=== PATIENT | male | born 1950 | race Caucasian/White ===

== ENCOUNTER 2022-11-24 07:00 | Outpatient (OUT) | payer MEDICARE, SELFPAY ==
[2022-11-24 10:39] LABS: Basophils Absolute Auto 0.1 10^3/uL (0.0-0.1); Basophils Percent Auto 1.1 % (0.2-2.0); Eosinophils Absolute Auto 0.3 10^3/uL (0.0-0.7); Eosinophils Percent Auto 4.4 % (0.9-7.0); Hematocrit 47.8 % (42.0-54.0); Hemoglobin 15.8 g/dL (14.0-18.0); Immature Granulocytes Abs Auto 0.02 10^3/uL (0.00-0.03); Immature Granulocytes Pct Auto 0.4 % (0.0-0.5); Lymphocytes Absolute Auto 2.1 10^3/uL (1.2-3.8); Lymphocytes Percent Auto 36.1 % (20.5-60.0); Mean Corpuscular HGB Conc 33.1 g/dL (29.9-35.2); Mean Corpuscular Volume 87.7 fL (80.0-94.0); Mean Platelet Volume 10.3 fL (9.5-13.5); Monocytes Absolute Auto 0.5 10^3/uL (0.3-0.8); Monocytes Percent Auto 8.8 % (1.7-12.0); Neutrophils Absolute Auto 2.8 10^3/uL (1.4-6.5); Neutrophils Percent Auto 49.2 % (43.0-75.0); Platelet Count 232 10^3/uL (150-450); Red Blood Count 5.45 10^6/uL (4.70-6.10); White Blood Count 5.7 10^3/uL (4.0-11.0)
[2022-11-24 10:50] LABS: Alanine Aminotransferase 28 U/L (16-63); Albumin Globulin Ratio 0.8; Albumin Level 3.6 g/dL (3.4-5.0); Alkaline Phosphatase 70 U/L (46-116); Aspartate Amino Transferase 18 U/L (15-37); BUN Creatinine Ratio 27.4; Bilirubin Total 0.5 mg/dL (0.2-1.0); Calcium 8.9 mg/dL (8.5-10.1); Carbon Dioxide 27.3 mmol/L (21.0-32.0); Chloride 106 mmol/L (98-107); Chol HDL Ratio 3.6; Cholesterol 213 mg/dL (<=200); Estimated GFR (African America >60 (>=60); Estimated GFR (Non-African Ame >60 (>=60); Globulin 4.3 g/dL; Glucose 110 mg/dL (74-106); HDL Cholesterol 59 mg/dL (40-60); Potassium 4.3 mmol/L (3.5-5.1); Sodium 141 mmol/L (136-145); Total Protein 7.9 g/dL (6.4-8.2); Triglycerides 103 mg/dL (<=150); VLDL CHOLESTEROL 20.6 mg/dL
[2022-11-24 11:07] LABS: Prostate Specific Antigen Dx 3.04 ng/mL (<=4.00)
== END 2022-11-24 07:01 | disposition home or self-care (01) ==
LOC: LAB 11-29 13:02
PROVIDERS: PCP Internal Medicine; Visit Provider Internal Medicine
DX: E88.09 Other disorders of plasma-protein metabolism, not elsewhere classified (principal); Z79.899 Other long term (current) drug therapy; E78.00 Pure hypercholesterolemia, unspecified; R97.20 Elevated prostate specific antigen [PSA]
CPT/HCPCS: 36415; 80053; 80061; 84153; 85025

== ENCOUNTER 2023-02-26 13:15 | Outpatient (OUT) | payer MEDICARE, SELFPAY ==
[2023-02-26 14:39] LABS: Prostate Specific Antigen Dx 3.65 ng/mL (<=4.00)
== END 2023-02-26 13:16 | disposition home or self-care (01) ==
LOC: LAB 13:15
PROVIDERS: PCP Internal Medicine; Visit Provider Internal Medicine
DX: R97.20 Elevated prostate specific antigen [PSA] (principal)
CPT/HCPCS: 36415; 84153

== ENCOUNTER 2023-03-06 11:17 | Outpatient (OUT) | payer MEDICARE, SELFPAY ==
[2023-03-06 13:45] LABS: Prostate Specific Antigen Dx 2.31 ng/mL (<=4.00)
== END 2023-03-06 11:18 | disposition home or self-care (01) ==
LOC: LAB 11:19
PROVIDERS: PCP Internal Medicine; Visit Provider Nurse Practitioner Family
DX: R97.20 Elevated prostate specific antigen [PSA] (principal)
CPT/HCPCS: 36415; 84153

== ENCOUNTER 2023-07-16 09:35 | Outpatient (OUT) | payer MEDICARE, SELFPAY ==
--- OUTSIDE RECORDS SUMMARY | 2023-07-16 09:39 | XMS_ITS | CCD ---
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 Name Role Phone Paul Frias MD Primary Care Provider Lewis Kruse Primary Care Provider U COURTNEY Cordova Attending Unavailable COURTNEY MORALES Admitting Unavailable NUPUR, DR HAN Dang Consulting Unavailable COURTNEY MORALES Consulting Unavailable WHIT ., DR WILEY Attending Unavailable HOY ., DR WILEY Consulting Unavailable HOY ., DR WILEY Admitting Unavailable HOY ., DR WILEY Attending Unavailable HOY ., DR WILEY Consulting Unavailable YAHIRY ., DR WILEY Admitting Unavailable COURTNEY MORALES Attending Unavailable COURTNEY MORALES Admitting Unavailable Unavailable Unavailable Unavailable Medications Current Medications Medication Drug Class(es) Dates Sig (Normalized) Sig (Original) acetaminophen 325 mg / oxyCODONE hydrochloride 5 mg oral tablet (1 source) Opioid Agonist Start: 10-12-2018 take 1 tablet by mouth every six hours Oxycodone-Acetami nophen Active 1 TAB Oral Q6H 10 3 October 12, 2018 9:45pm Albuterol (1 source) beta2-Adrenergic Agonist Start: 10-12-2018 Albuterol Sulfate Active October 12, 2018 8:58pm 120 actuat budesonide 0.16 mg/actuat / formoterol fumarate 0.0045 mg/actuat metered dose inhaler (1 source) Corticosteroid, beta2-Adrenergic Agonist Start: 10-12-2018 Budesonide-Formot mike Active October 12, 2018 8:58pm predniSONE 50 mg oral tablet (1 source) Start: 10-12-2018 take 50 mg by mouth once daily at mealtime Prednisone Active 50 MG Oral Daily 5 5 October 12, 2018 9:46pm administer with food or milk Problems Active Problems Problem Classification Problem Date Documented Date Episodic/Chronic Hyperplasia of prostate (1 source) Benign prostatic hypertrophy without outflow obstruction; Translations: [Benign prostatic hyperplasia without lower urinary tract symptoms] Onset: 03-18-2018 03-18-2018 Chronic Osteoarthritis (1 source) Generalized osteoarthritis of the hand; Translations: [Polyosteoarthritis, unspecified] Onset: 04-01-2008 04-01-2008 Chronic Other connective tissue disease (2 sources) Plantar fascial fibromatosis; Translations: [Plantar fascial fibromatosis] Onset: 10-30-2006 Episodic Past or Other Problems Problem Classification Problem Date Documented Date Episodic/Chronic Calculus of urinary tract (1 source) Kidney stone; Translations: [Calculus of kidney] Onset: 03-18-2018 03-18-2018 Episodic Immunizations and screening for infectious disease (4 sources) Encounter for immunization; Translations: [ENCOUNTER FOR IMMUNIZATION] Onset: 09-20-2021 Episodic Other connective tissue disease (4 sources) Achilles tendinitis, left leg; Translations: [ACHILLES TENDINITIS LEFT LEG] Onset: 05-16-2022 Episodic Other male genital disorders (1 source) Adult hydrocele; Translations: [Hydrocele, unspecified] Onset: 03-18-2018 03-18-2018 Episodic Other nervous system disorders (1 source) Other abnormalities of gait and mobility; Translations: [OTHER ABNORMALITIES GAIT AND MOBILITY] Onset: 05-23-2022 Episodic Other nervous system disorders (1 source) Unspecified abnormalities of gait and mobility; Translations: [UNS ABNORMALITIES GAIT AND MOBILITY] Onset: 05-23-2022 Episodic Other non-traumatic joint disorders (5 sources) Pain in left ankle and joints of left foot; Translations: [PAIN IN LEFT ANKLE] Onset: 03-14-2022 Episodic Sprains and strains (2 sources) Thoracic back sprain; Translations: [Strain of left Achilles tendon, subsequent encounter] Onset: 05-23-2022 Episodic Results Test Name Value Interpretation Reference Range Facil ity Complete Blood Count with Au to Diffon 09-26-2021 Basophils (Bld) [#/Vol] 0.07 10*3/uL Normal 0.00-0.20 [facility] Supply Person Comment on above: Performed By: #### C MP, LIPD, CBCAD #### [facility] [address] [place], [place] [id number] Basophils/100 WBC (Bld) 1.2 % Normal [facility] Specialist Comment on above: Performed By: #### C MP LIPD, CBCAD #### [facility] [address] [place], [place] [id number] Eosinophils (Bld) [#/Vol] 0.24 10*3/uL Normal 0.02-0.50 [facility]ist Comment on above: Performed By: #### C MP LIPD, CBCAD #### [facility] [address] [place], [place] [id number] Eosinophils/100 WBC (Bld) 4.0 % Normal [facility] Specialist Comment on above: Performed By: #### C MP LIPD, CBCAD #### [facility] [address] [place], [place] [id number] Erythrocyte distribution width (RBC) [Ratio] 13.9 % Normal 11.0-15.0 [facility] Specialist Comment on above: Performed By: #### C MP LIPD, CBCAD #### [facility] [address] [place], [place] [id number] Hematocrit (Bld) [Volume fraction] 46.0 % Normal 38.5-50.0 [facility] Specialist Comment on above: Performed By: #### C MP LIPD, CBCAD #### [facility] [address] [place], [place] [id number] Hemoglobin (Bld) [Mass/Vol] 15.1 g/dL Normal 13.0-17.1 [facility] Supply Person Comment on above: Performed By: #### C MP, LIPD, CBCAD #### [facility] [address] [place], [place] [id number] Lymphocytes (Bld) [#/Vol] 2.1 10*3/uL Normal 0.9-3.9 [facility]ist Comment on above: Performed By: #### C MP, LIPD, CBCAD #### [facility] [address] [place], [place] [id number] Lymphocytes/100 WBC (Bld) 34.8 % Normal [facility] Specialist Comment on above: Performed By: #### C MP, LIPD, CBCAD #### [facility] [address] [place], [place] [id number] MCH (RBC) [Entitic mass] 30.1 pg Normal 27.0-33.0 [facility] Specialist Comment on above: Performed By: #### C MP, LIPD, CBCAD #### [facility] [address] [place], [place] [id number] MCHC (RBC) [Mass/Vol] 32.8 g/dL Normal 32.0-36.0 [facility] Special[facility] Comment on above: Performed By: #### C MP, LIPD, CBCAD #### [facility] [address] [place], [place] [id number] MCV (RBC) [Entitic vol] 92 fL Normal 80-100 [facility] Comment on above: Performed By: #### C MP, LIPD, CBCAD #### [facility] [address] [place], [place] [id number] Monocytes (Bld) [#/Vol] 0.6 10*3/uL Normal 0.2-0.9 [facility] Comment on above: Performed By: #### C MP, LIPD, CBCAD #### [facility] [address] [place], [place] [id number] Monocytes/100 WBC (Bld) 9.4 % Normal [facility] Special[facility] Comment on above: Performed By: #### C MP, LIPD, CBCAD #### [facility] [address] [place], [place] [id number] Neutrophils (Bld) [#/Vol] 3.0 10*3/uL Normal 1.5-7.8 [facility] Comment on above: Performed By: #### C MP, LIPD, CBCAD #### [facility] [address] [place], [place] [id number] Neutrophils/100 WBC (Bld) 50.3 % Normal [facility] Specialist Comment on above: Performed By: #### C MP, LIPD, CBCAD #### [facility] [address] [place], [place] [id number] Platelet mean volume (Bld) [Entitic vol] 11.00 fL Normal 7.50-12.50 [employer] [place] Supply Person Comment on above: Performed By: #### C MP, LIPD, CBCAD #### [facility] [address] [place], [place] [id number] Platelets (Bld) [#/Vol] 246 10*3/uL Normal 140-400 [facility] Supply Person Comment on above: Performed By: #### C MP, LIPD, CBCAD #### [facility] [address] [place], [place] [id number] RBC (Bld) [#/Vol] 5.02 10*6/uL Normal 4.20-5.80 [facility] Comment on above: Performed By: #### C MP, LIPD, CBCAD #### [facility] [address] [place], [place] [id number] RDW-SD 47.2 fL Normal 37.0-50.0 [facility] Specialist Comment on above: Performed By: #### C MP, LIPD, CBCAD #### [facility] [address] [place], [place] [id number] WBC (Bld) [#/Vol] 6.0 10*3/uL Normal 3.8-11.0 [facility] Supply Person Comment on above: Performed By: #### C MP, LIPD, CBCAD #### [facility] [address] [place], [place] [id number] Comprehensive Metabolic Pane [facility] 09-26-2021 Albumin [Mass/Vol] 4.3 g/dL Normal 3.6-5.1 [facility] Supply Person Comment on above: Performed By: #### C MP, LIPD, CBCAD #### [facility] [address] [place], [place] [id number] Albumin/Globulin [Mass ratio] 1.4 {ratio} Normal 1.0-2.5 [facility] Specialist Comment on above: Performed By: #### C MP, LIPD, CBCAD #### [facility] [address] [place], [place] [id number] ALP [Catalytic activity/Vol] 69 U/L Normal 40-129 [facility] Supply Person Comment on above: Performed By: #### C MP, LIPD, CBCAD #### [facility] [address] [place], [place] [id number] ALT [Catalytic activity/Vol] 26 U/L Normal 9-46 [facility] Comment on above: Result Comment: 04/06 Female reference range changed. Performed By: #### C MP, LIPD, CBCAD #### [facility] [address] [place], [place] [id number] Anion gap [Moles/Vol] 16 mmol/L Normal 12-20 [facility] Specialist Comment on above: Result Comment: Effe ctive 05/12/2019 reference range changed. Performed By: #### C MP, LIPD, CBCAD #### [facility] [address] [place], [place] [id number] AST [Catalytic activity/Vol] 24 U/L Normal 10-40 [facility] Comment on above: Performed By: #### C MP, LIPD, CBCAD #### [facility] [address] [place], [place] [id number] Bilirubin [Mass/Vol] 0.32 mg/dL Normal 0.30-1.20 [facility] Comment on above: Performed By: #### C MP, LIPD, CBCAD #### [facility] [address] [place], [place] [id number] BUN/CREA 31 Ratio High 6-22 [facility] Comment on above: Performed By: #### C MP, LIPD, CBCAD #### [facility] [address] [place], [place] [id number] Calcium [Mass/Vol] 9.6 mg/dL Normal 8.6-10.2 [facility] Comment on above: Performed By: #### C MP, LIPD, CBCAD #### [facility] [address] [facility] [place] [place] [id number] Chloride [Moles/Vol] 105 mmol/L Normal 98-107 [facility] Specialist Comment on above: Performed By: #### C MP, LIPD, CBCAD #### [facility] [address] [facility] [place] [place] [id number] CO2 [Moles/Vol] 24 mmol/L Normal 20-31 [facility] Comment on above: Performed By: #### C MP, LIPD, CBCAD #### [facility] [address] [place], [place] [id number] Creatinine [Mass/Vol] 0.9 mg/dL Normal 0.7-1.4 [facility] Specialist Comment on above: Performed By: #### C DESTINY AND, CBCAD #### [facility] [address] [place], [place] [id number] eGFRAA 105 mL/min/1.73m2 Normal >60 [facility] Specialist Comment on above: Performed By: #### C NATALIYA LIPD, CBCAD #### [facility] [address] [place], [place] [id number] eGFRNAA 87 mL/min/1.73m2 Normal >60 [facility] Specialist Comment on above: Performed By: #### C CHANA AN, CBCAD #### [facility] [address] [place], [place] [id number] Globulin (S) [Mass/Vol] 3.1 g/dL Normal 1.9-3.7 [facility] Specialist Comment on above: Performed By: #### C NATALIYA LIPD, CBCAD #### [facility] [address] [place], [place] [id number] Glucose [Mass/Vol] 113 mg/dL High 65-99 [facility] Supply Person Comment on above: Result Comment: For FASTING Glucose --- ADA reference ranges: Normal 65-99 mg/dl Prediabetes 100-125 Diabetes >/= 126 Performed By: #### C NATALIYA LIPD, CBCAD #### [facility] [address] [place], [place] [id number] Potassium [Moles/Vol] 4.4 mmol/L Normal 3.5-5.5 [facility] Supply Person Comment on above: Performed By: #### C NATALIYA LIPD, CBCAD #### [facility] [address] [place], [place] [id number] Protein [Mass/Vol] 7.4 g/dL Normal 6.1-8.1 [facility] Supply Person Comment on above: Performed By: #### C NATALIYA, LIPD, CBCAD #### [facility] [address] [place], [place] [id number] Sodium [Moles/Vol] 141 mmol/L Normal 135-146 [facility] Comment on above: Performed By: #### C MP, LIPD, CBCAD #### [facility] [address] [place], [place] [id number] Urea nitrogen [Mass/Vol] 27 mg/dL High 7-25 [facility] Specialist Comment on above: Performed By: #### C MP, LIPD, CBCAD #### [facility] [address] [place], [place] [id number] Lipid Panelon 09-26-2021 Cholesterol [Mass/Vol] 212 mg/dL High 125-200 [facility] Specialist Comment on above: Result Comment: Low risk < 200mg/dL Borderline risk 201-239 mg/dl High risk > or equal to 240 Performed By: #### C NATALIYA, LIPD, CBCAD #### [facility] [address] [place], [place] [id number] Cholesterol in HDL [Mass/Vol] 54 mg/dL Normal >40 [facility] Specialist Comment on above: Result Comment: High Cardiovascular Risk HDL <40 mg/dL Low Cardiovascular Risk HDL > or equal to 60 mg/dl Performed By: #### C MP, LIPD, CBCAD #### [facility] [address] [place], [place] [id number] Cholesterol in LDL [Mass/Vol] 128 mg/dL Normal [facility] Comment on above: Result Comment: LDL ATP III CLASSIFICATION LDL less than 100 mg/dl Optimal LDL 100-129 mg/dl Near or above optimal LDL 130-159 Borderline high LDL 160-189 High LDL greater than 189 mg/dl Very High Performed By: #### C MP, LIPD, CBCAD #### [facility] [address] [place], [place] [id number] Cholesterol in VLDL [Mass/Vol] 30 mg/dL Normal [facility] Comment on above: Performed By: #### C MP, LIPD, CBCAD #### [facility] [address] [place], [place] [id number] Cholesterol.total/C holesterol in HDL [Mass ratio] 4 {ratio} Normal [facility] Specialist Comment on above: Performed By: #### C MP, LIPD, CBCAD #### [facility] [address] [place], [place] [id number] Triglyceride [Mass/Vol] 150 mg/dL Normal 30-150 [facility] Supply Person Comment on above: Result Comment: TRIG ATPIII CLASSIFICATIONS TRIG less than 150 mg/dl Normal TRIG 150-199 mg/dl Borderline High TRIG 200-500 mg/dl High TRIG greather than 500 mg/dl Very High Performed By: #### C MP, LIPD, CBCAD #### [facility] [address] [place], [place] [id number] Prostatic Specific Antigen, Totalon 09-26-2021 TPSA 1.920 ng/mL Normal <4.000 [facility] Supply Person Comment on above: Result Comment: PSA Test Method: ECLIA/Kwan e 601 Performed By: #### P SA #### [facility] [address] [place], [place] [id number] Encounters Encounter Date Encounter Type Care Provider Facility Start: 03-12-2023 ambulatory Facility:[facility] Start: 05-16-2022 End: 07-04-2022 ambulatory COURTNEY MORALES Facility: Start: 03-14-2022 End: 03-15-2022 ambulatory COURTNEY MORALES Facility:[facility] Start: 02-14-2022 End: 02-15-[address] INEZ SHERMAN . Facility:[facility] Start: 09-20-2021 End: 09-21-[address] INEZ SHERMAN . Facility: Start: 11-09-2006 ambulatory Cast [facility] Work Phone: Orthopaedics Start: 11-09-2006 End: 11-09-2006 Patient encounter procedure [facility] Work Phone: [facility] Plan of Treatment Date Care Activity Detail Author Start: 01-05-2021 Influenza vaccination INFLUENZA (Sea son Ended) [facility] Start: 2017 ADVANCE DIRECTIVE DISCUSSION ADVANCE DIRECTIVE DISCUSSION [facility] Start: 2017 PNEUMOVAX AGE 65 AND OVER WITH 5YR LOOKBACK (#1) PNEUMOVAX AGE 65 AND OVER WITH 5YR LOOKBACK (#1) [facility] Start: 08-31-2007 PROSTATE CANCER SCRE ENING DISCUSSION PROSTATE CANCER SCREENING DISCUSSION [facility] Start: 2002 Screening for malign ant neoplasm of colon [facility] Start: 2002 SHINGRIX VACCINE (1 of 2) RICE GRIX VACCINE (1 of 2) [facility] Start: 1997 [facility] Start: 08-31-1987 LIPID SCREEN LIPID SCREEN [facility] Start: 08-31-1971 Urine microalbumin profile DTAP,TDAP ,TD (1 - Tdap) [facility] Start: 1970 HEPATITIS C SCREENING HEPATITIS C SC REENING [facility] Start: 1964 Adult depression scr eening assessment DEPRESSION SCREENING [facility] Start: 1964 COVID-19 VACCINE (1) COVID-19 VACCIN E (1) [facility] Payers Date Payer Category Payer Unknown [employer] PPO [id number] 2006-2008 PPO [id number] 1959 Medicare [id number] 1959 Private Health Insurance [facility] [id number] [id number] 1957 Self-pay [id number] 1950 Unknown [id number] 1950 Unknown [id number] Unknown Self Pay [id number] Unknown [id number] Unknown [id number] Social History Date Type Detail [facility] Start: 1950 Sex Assigned At Male [facility] Start: 1950 Sex Assigned At Not on file [facility] Goals Date Patient Goal Desired Activity /State Clinical Note 03-15-2022 Note Date & Type Note Facility 03-15-2022 Note PROCEDURE: XR ANKLE LT MIN 3 V COMPARISON: 07/01/2019 foot x-ray HISTORY: Pain of left ankle joint FINDINGS: BONES:No acute fracture or dislocation. Mild degenerative changes. Moderate enthesopathic spurring plantar calcaneus SOFT TISSUES:Negative. No visible soft tissue swelling. EFFUSION:None visible. OTHER: Calcification of the Achilles tendon IMPRESSION: Achilles calcific tendinosis Degenerative changes Electronically authenticated by: HAN ESPITIA Date: 2022-03-15 08:54 [facility] History of Present illness Narrative 11-09-2006 11/09/2006 5:39 PM EDT Note Date & Type Note Facility 11-09-2006 History of Presen t illness Narrative PT ASSESSMENT - CASTING ROOM Naomi presents for cast removal and Application of Brace. Applied night splint and pneumatic aircast walker to left foot Patient has been instructed in Care and proper application of brace.. Darian Jai Cast Beeper: [id number] documented in this encounter [facility] Evaluation note Note Date & Type Note Facility Evaluation note Diagnosis Plantar fascial fibromatosis- Primary documented in this encounter [facility] Assessments No Assessments Information Available Summary Purpose Family History No Family History Records FoundNo Family History Records FoundNo Family History Records Found Advance Directives No Advanced Directives Records FoundNo Advanced Directives Records FoundNo Advanced Directives Records Found Additional Source Comments Source Comments (unrecognize d section and content) In the event this informatio n is protected by the Federal Confidentiality of Alcohol and Drug Abuse Patient Records regulations: The Federal rules restrict any use of the information to criminally investigate or prosecute any alcohol or drug abuse patient.[facility] (unrecognized sect ion and content) No Status Records FoundNo Status Records FoundNo Status Records Found INFORMATION SOURCE (unrecogn ized section and content) DATE CREATED AUTHOR 09/27/2021 [facility] dical Specialist DATE CREATED AUTHOR AUTHOR'S ORGANIZ ATION 09/06/2022 [facility] DATE CREATED AUTHOR AUTHOR'S ORGANIZ ATION 03/13/2023 [facility] FOR RECORDS PERTAINING TO PATIENTS WHO ARE OR HAVE BEEN ENROLLED IN A CHEMICAL DEPENDENCY/SUBSTANCEABUSE PROGRAM, SOME INFORMATION MAY BE OMITTED. This clinical summary was aggregated from multiple sources. Caution should be exercised in using it in the provision of clinical care. This summary normalizes information from multiple sources, and as a consequence, information in this document may materially change the coding, format and clinical context of patient data. In addition, data may be omitted in some cases. CLINICAL DECISIONS SHOULD BE BASED ON THE PRIMARY CLINICAL RECORDS. [employer] provides no warranty or guarantee of the accuracy or completeness of information in this document.
--- OUTSIDE RECORDS SUMMARY | 2023-07-16 09:39 | XMS_ITS | CCD ---
Author Name Unknown Address [address] [place] [address] Organization [facility] Care Team Providers Care Business Consult Name Role Phone Paul Frias MD Primary Care Provider [phone] Lewis Kruse Primary Care Provider U COURTNEY [...] Basophils (Bld) [#/Vol] 0.07 10*3/uL Normal 0.00-0.20 [facility] [employer] Operator Comment on above: Performed By: #### C MP, LIPD, CBCAD #### [facility] [address] [place], [place] [id number] Basophils/100 WBC (Bld) 1.2 % Normal [facility] Comment on above: Performed By: #### C MP LIPD, CBCAD #### [facility] [address] [place], [place] [id number] Eosinophils (Bld) [#/Vol] 0.24 10*3/uL Normal 0.02-0.50 [facility] Comment on above: Performed By: #### C MP LIPD, CBCAD #### [facility] [address] [place], [place] [id number] Eosinophils/100 WBC (Bld) 4.0 % Normal [facility] Comment on above: Performed By: #### C MP LIPD, CBCAD #### [facility] [address] [place], [place] [id number] Erythrocyte distribution width (RBC) [Ratio] 13.9 % Normal 11.0-15.0 [facility] Comment on above: Performed By: #### C MP LIPD, CBCAD #### [facility] [address] [place], [place] [id number] Hematocrit (Bld) [Volume fraction] 46.0 % Normal 38.5-50.0 [facility] Comment on above: Performed By: #### C MP LIPD, CBCAD #### [facility] [address] [place], [place] [id number] Hemoglobin (Bld) [Mass/Vol] 15.1 g/dL Normal 13.0-17.1 [facility] [employer] Operator Comment on above: Performed By: #### C MP, LIPD, CBCAD #### [facility] [address] [place], [place] [id number] Lymphocytes (Bld) [#/Vol] 2.1 10*3/uL Normal 0.9-3.9 [facility] Comment on above: Performed By: #### C MP, LIPD, CBCAD #### [facility] [address] [place], [place] [id number] Lymphocytes/100 WBC (Bld) 34.8 % Normal [facility] Comment on above: Performed By: #### C MP, LIPD, CBCAD #### [facility] [address] [place], [place] [id number] MCH (RBC) [Entitic mass] 30.1 pg Normal 27.0-33.0 [facility] Comment on above: Performed By: #### C MP, LIPD, CBCAD #### [facility] [address] [place], [place] [id number] MCHC (RBC) [Mass/Vol] 32.8 g/dL Normal 32.0-36.0 [facility] Comment on above: Performed By: #### C MP, LIPD, CBCAD #### [facility] [address] [place], [place] [id number] MCV (RBC) [Entitic vol] 92 fL Normal 80-100 [facility] Comment on above: Performed By: #### C MP, LIPD, CBCAD #### [facility] [address] [place], [place] [id number] Monocytes (Bld) [#/Vol] 0.6 10*3/uL Normal 0.2-0.9 [facility] Comment on above: Performed By: #### C MP, LIPD, CBCAD #### [facility] [address] [place], [place] [id number] Monocytes/100 WBC (Bld) 9.4 % Normal [facility] Comment on above: Performed By: #### C MP, LIPD, CBCAD #### [facility] [address] [place], [place] [id number] Neutrophils (Bld) [#/Vol] 3.0 10*3/uL Normal 1.5-7.8 [facility] Comment on above: Performed By: #### C MP, LIPD, CBCAD #### [facility] [address] [place], [place] [id number] Neutrophils/100 WBC (Bld) 50.3 % Normal [facility] Comment on above: Performed By: #### C MP, LIPD, CBCAD #### [facility] [address] [place], [place] [id number] Platelet mean volume (Bld) [Entitic vol] 11.00 fL Normal 7.50-12.50 [facility] [employer] Operator Comment on above: Performed By: #### C MP, LIPD, CBCAD #### [facility] [address] [place], [place] [id number] Platelets (Bld) [#/Vol] 246 10*3/uL Normal 140-400 [facility] [employer] Operator Comment on above: Performed By: #### C MP, LIPD, CBCAD #### [facility] [address] [place], [place] [id number] RBC (Bld) [#/Vol] 5.02 10*6/uL Normal 4.20-5.80 [facility] Comment on above: Performed By: #### C MP, LIPD, CBCAD #### [facility] [address] [place], [place] [id number] RDW-SD 47.2 fL Normal 37.0-50.0 [facility] Comment on above: Performed By: #### C MP, LIPD, CBCAD #### [facility] [address] [place], [place] [id number] WBC (Bld) [#/Vol] 6.0 10*3/uL Normal 3.8-11.0 [facility] [employer] Operator Comment on above: Performed By: #### C MP, LIPD, CBCAD #### [facility] [address] [place], [place] [id number] Comprehensive Metabolic Pane [facility] 09-26-2021 Albumin [Mass/Vol] 4.3 g/dL Normal 3.6-5.1 [facility] [employer] Operator Comment on above: Performed By: #### C MP, LIPD, CBCAD #### [facility] [address] [place], [place] [id number] Albumin/Globulin [Mass ratio] 1.4 {ratio} Normal 1.0-2.5 [facility] Comment on above: Performed By: #### C MP, LIPD, CBCAD #### [facility] [address] [place], [place] [id number] ALP [Catalytic activity/Vol] 69 U/L Normal 40-129 [facility] [employer] Operator Comment on above: Performed By: #### C MP, LIPD, CBCAD #### [facility] [address] [place], [place] [id number] ALT [Catalytic activity/Vol] 26 U/L Normal 9-46 [facility] Comment on above: Result Comment: 04/06 Female reference range changed. Performed By: #### C MP, LIPD, CBCAD #### [facility] [address] [place], [place] [id number] Anion gap [Moles/Vol] 16 mmol/L Normal 12-20 [facility] Comment on above: Result Comment: Effe ctive 05/12/2019 reference range changed. Performed By: #### C MP, LIPD, CBCAD #### [facility] [address] [place], [place] [id number] AST [Catalytic activity/Vol] 24 U/L Normal 10-40 [facility] Comment on above: Performed By: #### C MP, LIPD, CBCAD #### [facility] [address] [place], [place] [id number] Bilirubin [Mass/Vol] 0.32 mg/dL Normal 0.30-1.20 [facility] Comment on above: Performed By: #### C MP, LIPD, CBCAD #### [facility] [address] [place], [place] [id number] BUN/CREA 31 Ratio High 6-22 [facility] Comment on above: Performed By: #### C MP, LIPD, CBCAD #### [facility] [address] [place], [place] [id number] Calcium [Mass/Vol] 9.6 mg/dL Normal 8.6-10.2 [facility] Comment on above: Performed By: #### C MP, LIPD, CBCAD #### [facility] [address] [facility] [place] [id number] Chloride [Moles/Vol] 105 mmol/L Normal 98-107 [facility] Comment on above: Performed By: #### C MP, LIPD, CBCAD #### [facility] [address] [facility] [place] [id number] CO2 [Moles/Vol] 24 mmol/L Normal 20-31 [facility] Comment on above: Performed By: #### C MP, LIPD, CBCAD #### [facility] [address] [place], [place] [id number] Creatinine [Mass/Vol] 0.9 mg/dL Normal 0.7-1.4 [facility] Comment on above: Performed By: #### C DESTINY AND, CBCAD #### [facility] [address] [place], [place] [id number] eGFRAA 105 mL/min/1.73m2 Normal >60 [facility] Specialist Comment on above: Performed By: #### C NATALIYA LIPD, CBCAD #### [facility] [address] [place], [place] [id number] eGFRNAA 87 mL/min/1.73m2 Normal >60 [facility] Comment on above: Performed By: #### C CHANA AN, CBCAD #### [facility] [address] [place], [place] [id number] Globulin (S) [Mass/Vol] 3.1 g/dL Normal 1.9-3.7 [facility] Comment on above: Performed By: #### C NATALIYA LIPD, CBCAD #### [facility] [address] [place], [place] [id number] Glucose [Mass/Vol] 113 mg/dL High 65-99 [facility] [employer] Operator Comment on above: Result Comment: For FASTING Glucose --- ADA reference ranges: Normal 65-99 mg/dl Prediabetes 100-125 Diabetes >/= 126 Performed By: #### C NATALIYA LIPD, CBCAD #### [facility] [address] [place], [place] [id number] Potassium [Moles/Vol] 4.4 mmol/L Normal 3.5-5.5 [facility] [employer] Operator Comment on above: Performed By: #### C NATALIYA LIPD, CBCAD #### [facility] [address] [place], [place] [id number] Protein [Mass/Vol] 7.4 g/dL Normal 6.1-8.1 [facility] [employer] Operator Comment on above: Performed By: #### C NATALIYA, LIPD, CBCAD #### [facility] [address] [place], [place] [id number] Sodium [Moles/Vol] 141 mmol/L Normal 135-146 [facility] Comment on above: Performed By: #### C MP, LIPD, CBCAD #### [facility] [address] [place], [place] [id number] Urea nitrogen [Mass/Vol] 27 mg/dL High 7-25 [facility] Comment on above: Performed By: #### C MP, LIPD, CBCAD #### [facility] [address] [place], [place] [id number] Lipid Panelon 09-26-2021 Cholesterol [Mass/Vol] 212 mg/dL High 125-200 [facility] Comment on above: Result Comment: Low risk < 200mg/dL Borderline risk 201-239 mg/dl High risk > or equal to 240 Performed By: #### C NATALIYA, LIPD, CBCAD #### [facility] [address] [place], [place] [id number] Cholesterol in HDL [Mass/Vol] 54 mg/dL Normal >40 [facility] Comment on above: Result Comment: High Cardiovascular Risk HDL <40 mg/dL Low Cardiovascular Risk HDL > or equal to 60 mg/dl Performed By: #### C MP, LIPD, CBCAD #### [facility] [address] [place], [place] [id number] Cholesterol in LDL [Mass/Vol] 128 mg/dL Normal [facility] Comment on above: Result Comment: LDL ATP III CLASSIFICATION LDL less than 100 mg/dl Optimal LDL 100-129 mg/dl Near or above optimal LDL 130-159 Borderline high LDL 160-189 High LDL greater than 189 mg/dl Very High Performed By: #### C MP, LIPD, CBCAD #### [facility] [address] [place], [place] [id number] Cholesterol in VLDL [Mass/Vol] 30 mg/dL Normal [facility] Comment on above: Performed By: #### C MP, LIPD, CBCAD #### [facility] [address] [place], [place] [id number] Cholesterol.total/C holesterol in HDL [Mass ratio] 4 {ratio} Normal [facility] Comment on above: Performed By: #### C MP, LIPD, CBCAD #### [facility] [address] [place], [place] [id number] Triglyceride [Mass/Vol] 150 mg/dL Normal 30-150 [facility] [employer] Operator Comment on above: Result Comment: TRIG ATPIII CLASSIFICATIONS TRIG less than 150 mg/dl Normal TRIG 150-199 mg/dl Borderline High TRIG 200-500 mg/dl High TRIG greather than 500 mg/dl Very High Performed By: #### C MP, LIPD, CBCAD #### [facility] [address] [place], [place] [id number] Prostatic Specific Antigen, Totalon 09-26-2021 TPSA 1.920 ng/mL Normal <4.000 [facility] [employer] Operator Comment on above: Result Comment: PSA Test Method: ECLIA/Kwan e 601 Performed By: #### P SA #### [facility] [address] [place], [place] [id number] Encounters Encounter Date Encounter Type Care Provider Facility Start: 03-12-2023 ambulatory Facility:Charlene [facility]is Start: 05-16-2022 End: 07-04-2022 ambulatory COURTNEY MORALES Facility: Start: 03-14-2022 End: 03-15-2022 ambulatory COURTNEY MORALES Facility:[facility] Start: 02-14-2022 End: 02-15-[address] INEZ SHERMAN . Facility:[facility] Start: 09-20-2021 End: 09-21-[address] INEZ SHERMAN . Facility: Start: 11-09-2006 ambulatory [facility] Work Phone: Orthopaedics Start: 11-09-2006 End: 11-09-2006 Patient encounter procedure [facility] Work Phone: [facility] Plan of Treatment Date Care Activity Detail Author Start: 01-05-2021 Influenza vaccination INFLUENZA (Sea son Ended) [facility] Start: 2017 ADVANCE DIRECTIVE DISCUSSION ADVANCE DIRECTIVE DISCUSSION [facility] Start: 2017 PNEUMOVAX AGE 65 AND OVER WITH 5YR LOOKBACK (#1) PNEUMOVAX AGE 65 AND OVER WITH 5YR LOOKBACK (#1) [facility] Start: 08-31-2007 PROSTATE CANCER SCRE ENING DISCUSSION PROSTATE CANCER SCREENING DISCUSSION [facility] Start: 2002 Screening for malign ant neoplasm of colon [facility] Start: 2002 SHINGRIX VACCINE (1 of 2) RICE GRIX VACCINE (1 of 2) [facility] Start: 1997 [facility] Start: 08-31-1987 LIPID SCREEN LIPID SCREEN [facility] Start: 08-31-1971 Urine microalbumin profile DTAP,TDAP ,TD (1 - Tdap) [facility] Start: 1970 HEPATITIS C SCREENING HEPATITIS C SC REENING [facility] Start: 1964 Adult depression scr eening assessment DEPRESSION SCREENING [facility] Start: 1964 COVID-19 VACCINE (1) COVID-19 VACCIN E (1) [facility] Payers Date Payer Category Payer Unknown [employer] PPO [id number] 2006-2008 PPO [id number] 1959 Medicare [id number] 1959 Private Health Insurance [facility] RZYWJ [id number] 1959 Self-pay [id number] 1950 Unknown [id number] 1952 Unknown [id number] Unknown Self Pay [id number] Unknown [id number] Unknown [id number] Social History Date Type Detail [facility] Start: 1950 Sex Assigned At Male [facility] Start: 1950 Sex Assigned At Not on file [facility] Goals Date Patient Goal Desired Activity /State [...] by: HAN ESPITIA Date: 2022-03-15 08:54 [facility] History of Present illness Narrative [...] application of brace.. Darian Jai Cast Beeper: [id number] documented in this encounter [facility] Evaluation note Note Date & Type Note Facility Evaluation note Diagnosis Plantar fascial fibromatosis- Primary documented in this encounter [facility] Assessments No Assessments Information Available Summary [...] or prosecute any alcohol or drug abuse patient.[facility] (unrecognized sect ion and content) No Status Records FoundNo Status Records FoundNo Status Records Found INFORMATION SOURCE (unrecogn ized section and content) DATE CREATED AUTHOR 09/27/2021 [facility] dical Specialist DATE CREATED AUTHOR AUTHOR'S ORGANIZ ATION 09/06/2022 [facility] DATE CREATED AUTHOR AUTHOR'S ORGANIZ ATION 03/13/2023 [facility] FOR RECORDS PERTAINING TO PATIENTS WHO ARE [...] BE BASED ON THE PRIMARY CLINICAL RECORDS. [employer] provides no warranty or guarantee of the accuracy or completeness of information in this document.
[2023-07-16 13:27] LABS: Prostate Specific Antigen Dx 2.64 ng/mL (<=4.00)
== END 2023-07-16 09:36 | disposition home or self-care (01) ==
LOC: LAB 09:37
PROVIDERS: PCP Internal Medicine; Visit Provider Internal Medicine
DX: R97.20 Elevated prostate specific antigen [PSA] (principal)
CPT/HCPCS: 36415; 80053; 80061; 84153

== ENCOUNTER 2024-07-31 09:33 | Outpatient (REF) | payer MEDICARE, SELFPAY ==
--- OUTSIDE RECORDS SUMMARY | 2024-07-31 09:56 | XMS_ITS | CCD ---
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 Name Role Phone Carolyn Byrnes MD Primary Care Provider Lewis Kruse Primary Care Provider U COURTNEY Cordova Attending Unavailable ANDREW, COURTNEY Admitting Unavailable NUPUR, DR HAN Dang Consulting Unavailable ANDREW, COURTNEY Consulting Unavailable HOY ., DR WILEY Attending Unavailable HOY ., DR WILEY Consulting Unavailable HOY ., DR WILEY Admitting Unavailable HOY ., DR WILEY Attending Unavailable HOY ., DR WILEY Consulting Unavailable HOY ., DR WILEY Admitting Unavailable ANDREW, COURTNEY Attending Unavailable ANDREW, COURTNEY Admitting Unavailable CAROLYN BYRNES Referring Unavailable JASMINA JESSICA Attending Unavailable ANYI EATON Attending Unavailable ANYI EATON Attending Unavailable Uma CRAWFORD, Anyi Farmer Unavailable Carolyn Byrnes MD Primary Care Provider Deborah Fontana Attending Unavailable Unavailable Unavailable Unavailable Medications Current Medications Medication Drug Class(es) Dates Sig (Normalized) Sig (Original) acetaminophen 325 mg / oxyCODONE hydrochloride 5 mg oral tablet (1 source) Opioid Agonist Start: 10-12-2018 take 1 tablet by mouth every six hours Oxycodone-Acetamin ophen Active 1 TAB Oral Q6H 10 3 October 12, 2018 9:45pm [id number] 200 actuat albuterol 0.09 mg/actuat metered dose inhaler (4 sources) beta2-Adrenergic Agonist Start: 07-17-2023 take 2 puff(s) by inhalation every four hours as needed albuterol HFA (Ventolin HFA) 90 mcg/act inhaler Indications: Moderate persistent asthma without complication (CMS/HCC) Inhale 2 puffs every 4 (four) hours if needed (as needed) 18 g 3 07/17/2023 Active Start: 10-12-2018 Albuterol Sulf ate Active October 12, 2018 8:58pm 60 actuat budesonide 0.16 mg/actuat / formoterol fumarate 0.0045 mg/actuat metered dose inhaler (4 sources) Corticosteroid, beta2-Adrenergic Agonist Start: 08-27-2023 budesonide-formoterol (Symbicort) 160-4.5 MCG/ACT inhaler Indications: Moderate persistent asthma without complication (CMS/HCC) USE 2 INHALATIONS BY MOUTH EVERY MORNING AND BEFORE BEDTIME 20.4 g 5 08/27/2023 Active Start: 10-12-2018 Budesonide-For moterol Active October 12, 2018 8:58pm esomeprazole 20 mg delayed release oral capsule (3 sources) Proton Pump Inhibitor take 1 capsule by mouth once daily esomeprazole (NexIUM) [address] capsule Take 1 capsule by mouth 1 (one) time each day at the same time. Active fluticasone propionate 0.05 mg/actuat metered dose nasal spray (3 sources) Corticosteroid Start: 07-17-19 24 take 1 spray(s) nasal route in the morning fluticasone (Flonase) 50 MCG/ACT nasal spray Indications: Moderate persistent asthma without complication (CMS/HCC) Administer 1 spray into each nostril in the morning and 1 spray before bedtime. 16 g 3 07/17/2023 Active predniSONE 50 mg oral tablet (1 source) Start: 10-13-19 19 take 50 mg by mouth once daily at mealtime Prednisone Active 50 MG Oral Daily 5 5 October 12, 2018 9:46pm administer with food or milk Problems Active Problems Problem Classification Problem Date Documented Date Episodic/Chronic Abdominal pain (1 source) Flank pain 02-27-2024 Episodic Asthma (3 sources) Uncomplicated moderate persistent asthma; Translations: [Moderate persistent asthma, uncomplicated] Onset: 09-13-2022 07-13-2023 Chronic Calculus of urinary tract (8 sources) Kidney stone; Translations: [Calculus of kidney] Onset: 03-18-2018 Resolved: 02-23-2023 03-18-2018 Episodic Disorders of lipid metabolism (3 sources) Pure hypercholesterolemia; Translations: [Pure hypercholesterolemia, unspecified] Onset: 09-13-2022 11-01-2022 Chronic Esophageal disorders (3 sources) Gastroesophageal reflux disease without esophagitis; Translations: [Gastro-esophageal reflux disease without esophagitis] Onset: 09-13-2022 07-13-2023 Chronic Hyperplasia of prostate (4 sources) Benign prostatic hypertrophy without outflow obstruction; Translations: [Benign prostatic hyperplasia without lower urinary tract symptoms] Onset: 03-18-2018 03-18-2018 Chronic Osteoarthritis (1 source) Generalized osteoarthritis of the hand; Translations: [Polyosteoarthritis, unspecified] Onset: 04-01-2008 04-01-2008 Chronic Other connective tissue disease (2 sources) Plantar fascial fibromatosis; Translations: [Plantar fascial fibromatosis] Onset: 10-30-2006 Episodic Other male genital disorders (1 source) Pain in testicle 02-27-2024 Episodic Other male genital disorders (1 source) Spermatocele 02-27-2024 Episodic Other non-epithelial cancer of skin (4 sources) History of malignant basal cell neoplasm of skin; Translations: [Personal history of other malignant neoplasm of skin] 02-11-2024 Episodic Other skin disorders (2 sources) Seborrheic keratosis; Translations: [Other seborrheic keratosis] 02-11-2024 Episodic Other skin disorders (2 sources) Lentiginosis; Translations: [Other melanin hyperpigmentation] 02-11-2024 Episodic Other skin disorders (2 sources) Actinic keratosis; Translations: [Actinic keratosis] 02-11-2024 Episodic Past or Other Problems Problem Classification Problem Date Documented Date Episodic/Chronic Immunizations and screening for infectious disease (4 [...] [PAIN IN LEFT ANKLE] Onset: 03-14-2022 Episodic Other screening for suspected conditions (not mental disorders or infectious disease) (3 sources) Raised prostate specific antigen; Translations: [Elevated prostate specific antigen [PSA]] Onset: 09-13-2022 09-13-2022 Episodic Sprains and strains (2 sources) Thoracic back sprain; Translations: [Strain of left Achilles tendon, subsequent encounter] Onset: 05-23-2022 Episodic Results Test Name Value Interpretation Reference Range Facil ity No Panel Informationon 02-10 [facility] Complete Blood Count with Au to Diffon 09-26-2021 Basophils (Bld) [#/Vol] 0.07 10*3/uL Normal 0.00-0.20 [facility] Title Abstractor Comment on above: Performed By: #### C MP, LIPD, CBCAD #### [facility] [address], [place] [id number] Basophils/100 WBC (Bld) 1.2 % Normal [facility] Specialist Comment on above: Performed By: #### C MP, LIPD, CBCAD #### [facility] [address], [place] [id number] Eosinophils (Bld) [#/Vol] 0.24 10*3/uL Normal 0.02-0.50 [facility] Title Abstractor Comment on above: Performed By: #### C MP, LIPD, CBCAD #### [facility] [address], [place] [id number] Eosinophils/100 WBC (Bld) 4.0 % Normal [facility] Specialist Comment on above: Performed By: #### C MP, LIPD, CBCAD #### [facility] [address], [place] [id number] Erythrocyte distribution width (RBC) [Ratio] 13.9 % Normal 11.0-15.0 [facility] Title Abstractor Comment on above: Performed By: #### C MP, LIPD, CBCAD #### [facility] [address], [place] [id number] Hematocrit (Bld) [Volume fraction] 46.0 % Normal 38.5-50.0 [facility] Specialist Comment on above: Performed By: #### C DESTINY AND, CBCAD #### [facility] [address], [place] [id number] Hemoglobin (Bld) [Mass/Vol] 15.1 g/dL Normal 13.0-17.1 [facility] Title Abstractor Comment on above: Performed By: #### C NATALIYA LIPD, CBCAD #### [facility] [address], [place] [id number] Lymphocytes (Bld) [#/Vol] 2.1 10*3/uL Normal 0.9-3.9 [facility] Specialist Comment on above: Performed By: #### C CHANA AN, CBCAD #### [facility] [address], [place] [id number] Lymphocytes/100 WBC (Bld) 34.8 % Normal [facility] Title Abstractor Comment on above: Performed By: #### C NATALIYA LIPD, CBCAD #### [facility] [address], [place] [id number] MCH (RBC) [Entitic mass] 30.1 pg Normal 27.0-33.0 [facility] Title Abstractor Comment on above: Performed By: #### C CHANA AN, CBCAD #### [facility] [address], [place] [id number] MCHC (RBC) [Mass/Vol] 32.8 g/dL Normal 32.0-36.0 [facility] Title Abstractor Comment on above: Performed By: #### C NATALIYA LIPD, CBCAD #### [facility] [address], [place] [id number] MCV (RBC) [Entitic vol] 92 fL Normal 80-100 [facility] Title Abstractor Comment on above: Performed By: #### C NATALIYA LIPD, CBCAD #### [facility] [address], [place] [id number] Monocytes (Bld) [#/Vol] 0.6 10*3/uL Normal 0.2-0.9 [facility] Title Abstractor Comment on above: Performed By: #### C NATALIYA LIPD, CBCAD #### [facility] [address], [place] [id number] Monocytes/100 WBC (Bld) 9.4 % Normal [facility] Comment on above: Performed By: #### C MP, LIPD, CBCAD #### [facility] [address], [place] [id number] Neutrophils (Bld) [#/Vol] 3.0 10*3/uL Normal 1.5-7.8 [facility] Comment on above: Performed By: #### C MP, LIPD, CBCAD #### [facility] [address], [place] [id number] Neutrophils/100 WBC (Bld) 50.3 % Normal [facility] Comment on above: Performed By: #### C MP LIPD, CBCAD #### [facility] [address], [place] [id number] Platelet mean volume (Bld) [Entitic vol] 11.00 fL Normal 7.50-12.50 [facility] Comment on above: Performed By: #### C MP, LIPD, CBCAD #### [facility] [address], [place] [id number] Platelets (Bld) [#/Vol] 246 10*3/uL Normal 140-400 [facility] Comment on above: Performed By: #### C MP, LIPD, CBCAD #### [facility] [address], [place] [id number] RBC (Bld) [#/Vol] 5.02 10*6/uL Normal 4.20-5.80 [facility] Comment on above: Performed By: #### C MP, LIPD, CBCAD #### [facility] [address], [place] [id number] RDW-SD 47.2 fL Normal 37.0-50.0 [facility] Comment on above: Performed By: #### C MP, LIPD, CBCAD #### [facility] [address], [place] [id number] WBC (Bld) [#/Vol] 6.0 10*3/uL Normal 3.8-11.0 [facility] Comment on above: Performed By: #### C MP, LIPD, CBCAD #### [facility] [address], [place] [id number] Comprehensive Metabolic Pane berta 09-26-2021 Albumin [Mass/Vol] 4.3 g/dL Normal 3.6-5.1 [facility] Comment on above: Performed By: #### C MP, LIPD, CBCAD #### [facility] [address], [place] [id number] Albumin/Globulin [Mass ratio] 1.4 {ratio} Normal 1.0-2.5 [facility] Comment on above: Performed By: #### C MP, LIPD, CBCAD #### [facility] [address], [place] [id number] ALP [Catalytic activity/Vol] 69 U/L Normal 40-129 [facility] Comment on above: Performed By: #### C MP, LIPD, CBCAD #### [facility] [address], [place] [id number] ALT [Catalytic activity/Vol] 26 U/L Normal 9-46 [facility] Comment on above: Result Comment: 04/06 Female reference range changed. Performed By: #### C MP, LIPD, CBCAD #### [facility] [address], [place] [id number] Anion gap [Moles/Vol] 16 mmol/L Normal 12-20 [facility] Comment on above: Result Comment: Effe ctive 05/12/2019 reference range changed. Performed By: #### C MP, LIPD, CBCAD #### [facility] [address], [place] [id number] AST [Catalytic activity/Vol] 24 U/L Normal 10-40 [facility] Comment on above: Performed By: #### C MP, LIPD, CBCAD #### [facility] [address], [place] [id number] Bilirubin [Mass/Vol] 0.32 mg/dL Normal 0.30-1.20 [facility] Comment on above: Performed By: #### C MP, LIPD, CBCAD #### [facility] [address], [place] [id number] BUN/CREA 31 Ratio High 6-22 [facility] Specialist Comment on above: Performed By: #### C MP, LIPD, CBCAD #### [facility] [address], [place] [id number] Calcium [Mass/Vol] 9.6 mg/dL Normal 8.6-10.2 [facility] Specialist Comment on above: Performed By: #### C MP, LIPD, CBCAD #### [facility] [address], [place] [id number] Chloride [Moles/Vol] 105 mmol/L Normal 98-107 [facility] Comment on above: Performed By: #### C MP, LIPD, CBCAD #### [facility] [address], [place] [id number] CO2 [Moles/Vol] 24 mmol/L Normal 20-31 [facility] Comment on above: Performed By: #### C MP, LIPD, CBCAD #### [facility] [address], [place] [id number] Creatinine [Mass/Vol] 0.9 mg/dL Normal 0.7-1.4 [facility] Specialist Comment on above: Performed By: #### C MP, LIPD, CBCAD #### [facility] [address], [place] [id number] eGFRAA 105 mL/min/1.73m2 Normal >60 [facility] Comment on above: Performed By: #### C MP, LIPD, CBCAD #### [facility] [address], [place] [id number] eGFRNAA 87 mL/min/1.73m2 Normal >60 [facility] Specialist Comment on above: Performed By: #### C MP, LIPD, CBCAD #### [facility] [address], [place] [id number] Globulin (S) [Mass/Vol] 3.1 g/dL Normal 1.9-3.7 [facility] Title Abstractor Comment on above: Performed By: #### C MP, LIPD, CBCAD #### [facility] [address], [place] [id number] Glucose [Mass/Vol] 113 mg/dL High 65-99 [facility] Title Abstractor Comment on above: Result Comment: For FASTING Glucose --- ADA reference ranges: Normal 65-99 mg/dl Prediabetes 100-125 Diabetes >/= 126 Performed By: #### C NATALIYA, LIPD, CBCAD #### [facility] [address], [place] [id number] Potassium [Moles/Vol] 4.4 mmol/L Normal 3.5-5.5 [facility] Title Abstractor Comment on above: Performed By: #### C NATALIYA, LIPD, CBCAD #### [facility] [address], [place] [id number] Protein [Mass/Vol] 7.4 g/dL Normal 6.1-8.1 [facility] Title Abstractor Comment on above: Performed By: #### C NATALIYA, LIPD, CBCAD #### [facility] [address], [place] [id number] Sodium [Moles/Vol] 141 mmol/L Normal 135-146 [facility] Title Abstractor Comment on above: Performed By: #### C NATALIYA, LIPD, CBCAD #### [facility] [address] [facility] [place] [id number] Urea nitrogen [Mass/Vol] 27 mg/dL High 7-25 [facility] Title Abstractor Comment on above: Performed By: #### C NATALIYA, LIPD, CBCAD #### [facility] [address], [place] [id number] Lipid Panelon 09-26-2021 Cholesterol [Mass/Vol] 212 mg/dL High 125-200 [facility] Title Abstractor Comment on above: Result Comment: Low risk < 200mg/dL Borderline risk 201-239 mg/dl High risk > or equal to 240 Performed By: #### C MP, LIPD, CBCAD #### [facility] [address] [facility] [place] [id number] Cholesterol in HDL [Mass/Vol] 54 mg/dL Normal >40 [facility] Title Abstractor Comment on above: Result Comment: High Cardiovascular Risk HDL <40 mg/dL Low Cardiovascular Risk HDL > or equal to 60 mg/dl Performed By: #### C MP, LIPD, CBCAD #### [facility] [address] [facility] [place] [id number] Cholesterol in LDL [Mass/Vol] 128 mg/dL Normal [facility] Specialist Comment on above: Result Comment: LDL ATP III CLASSIFICATION LDL less than 100 mg/dl Optimal LDL 100-129 mg/dl Near or above optimal LDL 130-159 Borderline high LDL 160-189 High LDL greater than 189 mg/dl Very High Performed By: #### C MP, LIPD, CBCAD #### [facility] [address], [place] [id number] Cholesterol in VLDL [Mass/Vol] 30 mg/dL Normal [facility] Specialist Comment on above: Performed By: #### C MP, LIPD, CBCAD #### [facility] [address], [place] [id number] Cholesterol.total/C holesterol in HDL [Mass ratio] 4 {ratio} Normal [facility] Specialist Comment on above: Performed By: #### C MP, LIPD, CBCAD #### [facility] [address], [place] [id number] Triglyceride [Mass/Vol] 150 mg/dL Normal 30-150 [facility] Title Abstractor Comment on above: Result Comment: TRIG ATPIII CLASSIFICATIONS TRIG less than 150 mg/dl Normal TRIG 150-199 mg/dl Borderline High TRIG 200-500 mg/dl High TRIG greather than 500 mg/dl Very High Performed By: #### C MP, LIPD, CBCAD #### [facility] [address], [place] [id number] Prostatic Specific Antigen, Totalon 09-26-2021 TPSA 1.920 ng/mL Normal <4.000 [facility] Title Abstractor Comment on above: Result Comment: PSA Test Method: ECLIA/Kwan e 601 Performed By: #### P SA #### [facility] [address], [place] [id number] Encounters Encounter Date Encounter Type Care Provider Facility Start: 03-04-2024 End: 03-04-2024 ambulatory Deborah Fontana Facility:[facility] Start: 03-04-2024 End: 03-04-2024 Patient encounter procedure Deborah Fontana [facility] Start: 02-11-2024 End: 02-11-2024 Bamboo flowsheet Anyi Eaton MD Work Phone: [facility] Start: 02-11-2024 End: 02-11-2024 Bamboo flowsheet Anyi Eaton MD Work Phone: [facility] Start: 02-11-2024 End: 02-11-2024 Office outpatient visit 15 minutes Anyi Eaton MD Work Phone: [facility] Comment on above: Seborrheic keratosis (Primary Dx); Lentigines; History of basal cell carcinoma; History of SCC (squamous cell carcinoma) of skin; Actinic keratosis Start: 02-11-2024 End: 02-11-2024 ambulatory ANYI FRIASCHIDI Not Available Start: 08-14-2023 End: 08-14-2023 ambulatory ANYI A UMA Not Available Start: 07-17-2023 End: 07-17-2023 ambulatory CAROLYN Alba SONIYA Not Available Start: 03-12-2023 ambulatory Deborah Fontana Facility: [facility] [place] Start: 05-16-2022 End: 07-04-2022 ambulatory COURTNEY MOARLES Facility:[facility] Start: 03-14-2022 End: 03-15-2022 ambulatory COURTNEY MORALES Facility:[facility] Start: 02-14-2022 End: 02-15-[address] INEZ SHERMAN . Facility:[facility] Start: 09-20-2021 End: 09-21-[address] INEZ SHERMAN . Facility:[facility] Start: 11-09-2006 ambulatory [facility] Work Phone: Orthopaedics Start: 11-09-2006 End: 11-09-2006 Patient encounter procedure [facility] Work Phone: [facility] Procedures Date Procedure Procedure Detail Performing Clinician Start: 02-11-2024 CRYOTHERAPY SKIN LESION Anyi Eaton MD Work Phone: Plan of Treatment Date Care Activity Detail Author Start: 08-11-2024 End: 08-11-2024 Patient encounter procedure 08/11/2024 1:00 PM EDT Office Visit [facility] [address] [place] [phone] Anyi Eaton MD [address] [place] [address] [facility] Start: 02-11-2024 End: 02-11-2024 Patient encounter procedure 02/11/2024 1:00 PM EDT Office Visit [facility] [address] [place] [phone] Anyi Eaton MD [address] [place] [address] Arrived [facility] Comment on above: Arrived Start: 01-06-2024 Influenza vaccination Influenza Vacc ine (#1) [facility] Start: 05-23-2022 Screening for malign ant neoplasm of colon [facility] Start: 09-15-2021 Pneumococcal Vaccine : 65+ Years (2 of 2 - PCV) Pneumococcal Vaccine: 65+ Years (2 of 2 - PCV) [facility] Start: 01-05-2021 Influenza vaccination INFLUENZA (Sea son Ended) [facility] Start: 2017 ADVANCE DIRECTIVE DISCUSSION ADVANCE DIRECTIVE DISCUSSION [facility] Start: 2017 PNEUMOVAX AGE 65 AND OVER WITH 5YR LOOKBACK (#1) PNEUMOVAX AGE 65 AND OVER WITH 5YR LOOKBACK (#1) [facility] Start: 08-31-2007 PROSTATE CANCER SCRE ENING DISCUSSION PROSTATE CANCER SCREENING DISCUSSION [facility] Start: 2002 Screening for malign ant neoplasm of colon [facility] Start: 2002 SHINGRIX VACCINE (1 of 2) SHINGRIX V ACCINE (1 of 2) [facility] Start: 1997 DIABETES SCREEN DIABETES SCREEN [facility] Start: 08-31-1987 LIPID SCREEN LIPID SCREEN [facility] Start: 08-31-1971 Urine microalbumin profile DTAP,TDAP,TD (1 - Tdap) [facility] Start: 1970 HEPATITIS C SCREENING HEPATITIS C SC REENING [facility] Start: 1964 Adult depression screening assessment DEPRESSION SCREENING [facility] Start: 1964 COVID-19 VACCINE (1) COVID-19 VACCIN E (1) [facility] Start: 1950 Medicare Annual Well ness (AWV) Medicare Annual Wellness (AWV) [facility] Start: 1950 Screening for malign ant neoplasm of colon [facility] Immunizations Immunization Date Immunization Notes Care Provider Fa cility 09-15-2020 pneumococcal polysaccharide vaccine, 23 valent Anyi Eaton MD Work Phone: [facility] Payers Date Payer Category Payer Medicare [facility] MEDIC[facility] MEDICARE REPLACEMENT [id number] 2022-Present [address] [address] [place] [address] [id number] 2022 Private Health Insurance [id number] 2006 Unknown [employer] C[employer] PPO [id number] 2006-2008 PPO [id number] 1959 Medicare [id number] 1959 Private Health Insurance TNB [id number] 1959 Self-pay [id number] 1950 Unknown [id number] 1952 Unknown [id number] 1952 Unknown [id number] 1952 Unknown [id number] 1952 Unknown [id number] 1952 Unknown [id number] Unknown Self Pay [id number] Unknown [id number] Unknown [id number] Social History Date Type Detail [facility] Start: 1950 Sex Assigned At Male [facility] Start: 1950 Sex Assigned At Not on file [facility] Start: 09-07-2022 Tobacco smoking stat [facility] Never smoked tobacco [facility] Start: 09-07-2022 Tobacco use and exposure Smokeless tobacco non-user [facility] Start: 08-14-2023 End: 02-11-2024 Alcoholic beverage intake Current drinker of alcohol (finding) [facility] Start: 08-14-2023 End: 11-26-2023 Alcoholic beverage intake [facility] Start: 08-14-2023 End: 11-26-2023 Tobacco use panel [facility] Start: 09-07-2022 Alcohol Comment coffee and sod a 2-3 cups per day [facility] Tobacco smoking status No Smokin g Status Entered [facility] Goals Date Patient Goal Desired Activity /State History of Present illness Narrative 02-11-2024 Anyi Eaton MD - 02/11/2024 1:00 PM EDT Note Date & Type Note Facility 02-11-2024 History of Presen t illness Narrative Skin Check Location: Patient requests a skin examination from the waist up Dermatologic history: history of Actinic Keratosis, history of Basal Cell Carcinoma, history of Squamous cell carcinoma Last visit: 08/14/2023 Established patient Lesions: Location: shoulders Duration: months Quality: denies pain, denies itch, denies bleeding Modifying factors: none Associated symptoms: dark, rough spot Treatments: none All pertinent medical history, medications, and allergies were reviewed. General Exam: alert, oriented to person, place, and time, normal affect, well appearing Unaccompanied A complete skin exam was offered, pt declined. Areas not examined despite medical recommendation: From the waist down Scalp, Examined Head, Face Examined Neck Examined Chest Examined Back Examined Abdomen Examined Right arm Examined Left arm Examined Hands Examined Digits,nails: Examined Lymphatics: 1. Seborrheic keratosis (5) Arms, Head, Left Shoulder - Anterior, Right Shoulder - Anterior, Trunk Stuck on verrucous, barr-brown papules and plaques. Patient was counseled regarding these benign growths. Removal is normally not necessary, but they may be removed if they are symptomatic or for cosmetic reasons. 2. Lentigines (3) Arms, Head - Anterior (Face), Trunk Scattered barr macules in sun-exposed areas. The patient was informed that lentigines are benign pigmented lesions that occur on sun-exposed and sun-damaged skin. No treatment is necessary. Recommended regular use of broad spectrum sunscreen SPF 30 or higher 3. History of basal cell carcinoma left chest and right frontal scalp No evidence of recurrence at BCC scar. The patient was counseled that scars from excisional sites of nonmelanoma skin cancers should be monitored closely for recurrence. The patient was instructed to contact the office for any new, changing, or symptomatic moles. The patient was also instructed to contact the office for any new lesions that develop within or around the previous surgery scar. 4. History of SCC (squamous cell carcinoma) of skin left forearm and right upper chest No evidence of recurrence at SCC scar. The patient was counseled that scars from excisional sites of nonmelanoma skin cancers should be monitored closely for recurrence. The patient was instructed to contact the office for any new, changing, or symptomatic moles. The patient was also instructed to contact the office for any new lesions that develop within or around the previous surgery scar. 5. Actinic keratosis (17) Left Buccal Cheek, Left Forehead (3), Left Parotid Area, Left Zygomatic Area, Mid Forehead, Right Anterior Neck, Right Buccal Cheek, Right Ear, Right Forehead, Right Parotid Area, Right Yarsani (2), Right Zygomatic Area (3) Erythematous scaly papules Patient was counseled regarding these sun-induced growths that can develop into squamous cell carcinoma if left untreated. Discussed treatment with cryotherapy. It was emphasized that any treated lesions that fail to resolve should be re-evaluated. Cryotherapy performed today; see procedure note Diagnosis: Actinic keratosis Indication: Precancerous Location: see skin exam Consent: Verbal consent was obtained and risks were discussed, including, but not limited to risks of scarring, darker or activities manager pigmentary changes, recurrence, incomplete removal and infection. Method: Liquid nitrogen was used to treat the lesion(s) with two 5-10 second freeze-thaw cycles. Number of lesions treated: 17 Post-procedure instructions: Instructions were given orally and in writing. The office will be contacted if the lesion fails to resolve despite treatment, or if a side effect develops such as abnormal crusting, scabbing, redness or tenderness Cryotherapy, skin lesion - Left Buccal Cheek, Left Forehead (3), Left Parotid Area, Left Zygomatic Area, Mid Forehead, Right Anterior Neck, Right Buccal Cheek, Right Ear, Right Forehead, Right Parotid Area, Right Yarsani (2), Right Zygomatic Area (3) Next Visit: 6 months skin exam documented in this encounter [facility] Clinical Note 03-15-2022 Note Date & Type [...] by: HAN ESPITIA Date: 2022-03-15 08:54 [facility] History of Present illness Narrative 11-09-2006 11/09/2006 5:39 PM EDT Note Date & Type Note Facility 11-09-2006 History of Presen t illness Narrative PT ASSESSMENT - CASTING ROOM Naomi presents for cast removal and Application of Brace. Applied night splint and pneumatic aircast walker to left foot Patient has been instructed in Care and proper application of brace.. Darian Zhouwood Cast Beeper: [id number] documented in this encounter [facility] Evaluation + Plan note Note Date & Type Note Facility Evaluation + Plan note No data available for this section [facility] Evaluation note Note Date & Type Note Facility Evaluation note Diagnosis Plantar fascial fibromatosis- Primary documented in this encounter [facility] Evaluation note Note Date & Type Note Facility Evaluation note Diagnosis Seborrheic keratosis- Primary Lentigines History of basal cell carcinoma Personal history of other malignant neoplasm of skin History of SCC (squamous cell carcinoma) of skin Personal history of other malignant neoplasm of skin Actinic keratosis documented in this encounter [facility] Discharge instructions Note Date & Type Note Facility Hospital Discharge instructions No data available for this section [facility] [employer] Progress note Note Date & Type Note Facility Progress note No data available for this section [facility] [place] Assessments No Assessments Information Available Summary Purpose Family History No Family History Records FoundNo Family History Records FoundNo Family History Records Found No data available for this section No Family History Records Found Advance Directives No [...] or prosecute any alcohol or drug abuse patient.[facility] (unrecognized sect ion and content) No Status Records FoundNo Status Records FoundNo Status Records FoundNo Status Records Found INFORMATION SOURCE (unrecogn ized section and content) DATE CREATED AUTHOR 09/27/2021 [facility] dical Specialist DATE CREATED AUTHOR AUTHOR'S NICHELLE NEVILLE 09/06/2022 [facility] DATE CREATED AUTHOR AUTHOR'S ORGANIZ ATION 02/12/2024 [facility] dical Specialists EPIC DATE CREATED AUTHOR AUTHOR'S ORGANIZ ATION 03/06/2024 Zan Willis [facility] Care Teams (unrecognized sec tion and content) 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 [employer] Relationship Specialty Start Date End Date Carolyn Byrnes MD [address] [place] [address] PCP - General Internal Medicine 11/22/22 Anyi Eaton MD [address] [place] [address] Referring Physician Dermatology 11/17/22 [employer] Relationship Specialty Start Date End Date Carolyn Byrnes MD [address] [place] [address] PCP - General Internal Medicine 11/22/22 Anyi Eaton MD [address] [place] [address] Referring Physician Dermatology 11/17/22 Reason for Visit (unrecogniz ed section and content) Reason Comments Skin Check Suspicious Skin Lesion FOR RECORDS PERTAINING TO PATIENTS WHO ARE [...] BE BASED ON THE PRIMARY CLINICAL RECORDS. [employer] provides no warranty or guarantee of the accuracy or completeness of information in this document.
--- OUTSIDE RECORDS SUMMARY | 2024-07-31 09:59 | XMS_ITS | CCD ---
Author Organization [facility] Care Team Providers Care [employer] Name Role Phone Carolyn Byrnes MD Primary Care Provider [phone] Lewis Kruse Primary Care Provider U COURTNEY [...] Unavailable Carolyn Byrnes MD Primary Care Provider [phone] Deborah Fontana Attending Unavailable Unavailable Unavailable Unavailable Medications Current Medications Medication Drug Class(es) Dates Sig (Normalized) Sig (Original) acetaminophen 325 mg / oxyCODONE hydrochloride 5 mg oral tablet (1 source) Opioid Agonist Start: 10-12-2018 take 1 tablet by mouth every six hours Oxycodone-Acetamin ophen Active 1 TAB Oral Q6H 10 3 October 12, 2018 9:45pm [id number] 200 actuat albuterol 0.09 mg/actuat metered dose [...] Range Facil ity No Panel Informationon 02-10 [facility] Complete Blood Count with Au to Diffon 09-26-2021 Basophils (Bld) [#/Vol] 0.07 10*3/uL Normal 0.00-0.20 [facility] Dragline Operator Comment on above: Performed By: #### C MP, LIPD, CBCAD #### [facility] [address], [place] [id number] Basophils/100 WBC (Bld) 1.2 % Normal [facility] Specialist Comment on above: Performed By: #### C MP, LIPD, CBCAD #### [facility] [address], [place] [id number] Eosinophils (Bld) [#/Vol] 0.24 10*3/uL Normal 0.02-0.50 [facility] Dragline Operator Comment on above: Performed By: #### C MP, LIPD, CBCAD #### [facility] [address], [place] [id number] Eosinophils/100 WBC (Bld) 4.0 % Normal [facility] Specialist Comment on above: Performed By: #### C MP, LIPD, CBCAD #### [facility] [address], [place] [id number] Erythrocyte distribution width (RBC) [Ratio] 13.9 % Normal 11.0-15.0 [facility] Dragline Operator Comment on above: Performed By: #### C MP, LIPD, CBCAD #### [facility] [address], [place] [id number] Hematocrit (Bld) [Volume fraction] 46.0 % Normal 38.5-50.0 [facility] Specialist Comment on above: Performed By: #### C DESTINY AND, CBCAD #### [facility] [address], [place] [id number] Hemoglobin (Bld) [Mass/Vol] 15.1 g/dL Normal 13.0-17.1 [facility] Dragline Operator Comment on above: Performed By: #### C NATALIYA LIPD, CBCAD #### [facility] [address], [place] [id number] Lymphocytes (Bld) [#/Vol] 2.1 10*3/uL Normal 0.9-3.9 [facility] Specialist Comment on above: Performed By: #### C CAHNA AN, CBCAD #### [facility] [address], [place] [id number] Lymphocytes/100 WBC (Bld) 34.8 % Normal [facility] Dragline Operator Comment on above: Performed By: #### C NATALIYA LIPD, CBCAD #### [facility] [address], [place] [id number] MCH (RBC) [Entitic mass] 30.1 pg Normal 27.0-33.0 [facility] Dragline Operator Comment on above: Performed By: #### C CHANA AN, CBCAD #### [facility] [address], [place] [id number] MCHC (RBC) [Mass/Vol] 32.8 g/dL Normal 32.0-36.0 [facility] Dragline Operator Comment on above: Performed By: #### C NATALIYA LIPD, CBCAD #### [facility] [address], [place] [id number] MCV (RBC) [Entitic vol] 92 fL Normal 80-100 [facility] Dragline Operator Comment on above: Performed By: #### C NATALIYA LIPD, CBCAD #### [facility] [address], [place] [id number] Monocytes (Bld) [#/Vol] 0.6 10*3/uL Normal 0.2-0.9 [facility] Dragline Operator Comment on above: Performed By: #### C NATALIYA LIPD, CBCAD #### [facility] [address], [place] [id number] Monocytes/100 WBC (Bld) 9.4 % Normal [facility] Comment on above: Performed By: #### C MP, LIPD, CBCAD #### [facility] [address], [place] [id number] Neutrophils (Bld) [#/Vol] 3.0 10*3/uL Normal 1.5-7.8 [facility] Comment on above: Performed By: #### C MP, LIPD, CBCAD #### [facility] [address], [place] [id number] Neutrophils/100 WBC (Bld) 50.3 % Normal [facility] Comment on above: Performed By: #### C MP LIPD, CBCAD #### [facility] [address], [place] [id number] Platelet mean volume (Bld) [Entitic vol] 11.00 fL Normal 7.50-12.50 [facility] Comment on above: Performed By: #### C MP, LIPD, CBCAD #### [facility] [address], [place] [id number] Platelets (Bld) [#/Vol] 246 10*3/uL Normal 140-400 [facility] Comment on above: Performed By: #### C MP, LIPD, CBCAD #### [facility] [address], [place] [id number] RBC (Bld) [#/Vol] 5.02 10*6/uL Normal 4.20-5.80 [facility] Comment on above: Performed By: #### C MP, LIPD, CBCAD #### [facility] [address], [place] [id number] RDW-SD 47.2 fL Normal 37.0-50.0 [facility] Comment on above: Performed By: #### C MP, LIPD, CBCAD #### [facility] [address], [place] [id number] WBC (Bld) [#/Vol] 6.0 10*3/uL Normal 3.8-11.0 [facility] Comment on above: Performed By: #### C MP, LIPD, CBCAD #### [facility] [address], [place] [id number] Comprehensive Metabolic Pane breta 09-26-2021 Albumin [Mass/Vol] 4.3 g/dL Normal 3.6-5.1 [facility] Comment on above: Performed By: #### C MP, LIPD, CBCAD #### [facility] [address], [place] [id number] Albumin/Globulin [Mass ratio] 1.4 {ratio} Normal 1.0-2.5 [facility] Comment on above: Performed By: #### C MP, LIPD, CBCAD #### [facility] [address], [place] [id number] ALP [Catalytic activity/Vol] 69 U/L Normal 40-129 [facility] Comment on above: Performed By: #### C MP, LIPD, CBCAD #### [facility] [address], [place] [id number] ALT [Catalytic activity/Vol] 26 U/L Normal 9-46 [facility] Comment on above: Result Comment: 04/06 Female reference range changed. Performed By: #### C MP, LIPD, CBCAD #### [facility] [address], [place] [id number] Anion gap [Moles/Vol] 16 mmol/L Normal 12-20 [facility] Comment on above: Result Comment: Effe ctive 05/12/2019 reference range changed. Performed By: #### C MP, LIPD, CBCAD #### [facility] [address], [place] [id number] AST [Catalytic activity/Vol] 24 U/L Normal 10-40 [facility] Comment on above: Performed By: #### C MP, LIPD, CBCAD #### [facility] [address], [place] [id number] Bilirubin [Mass/Vol] 0.32 mg/dL Normal 0.30-1.20 [facility] Comment on above: Performed By: #### C MP, LIPD, CBCAD #### [facility] [address], [place] [id number] BUN/CREA 31 Ratio High 6-22 [facility] Specialist Comment on above: Performed By: #### C MP, LIPD, CBCAD #### [facility] [address], [place] [id number] Calcium [Mass/Vol] 9.6 mg/dL Normal 8.6-10.2 [facility] Specialist Comment on above: Performed By: #### C MP, LIPD, CBCAD #### [facility] [address], [place] [id number] Chloride [Moles/Vol] 105 mmol/L Normal 98-107 [facility] Comment on above: Performed By: #### C MP, LIPD, CBCAD #### [facility] [address], [place] [id number] CO2 [Moles/Vol] 24 mmol/L Normal 20-31 [facility] Comment on above: Performed By: #### C MP, LIPD, CBCAD #### [facility] [address], [place] [id number] Creatinine [Mass/Vol] 0.9 mg/dL Normal 0.7-1.4 [facility] Specialist Comment on above: Performed By: #### C MP, LIPD, CBCAD #### [facility] [address], [place] [id number] eGFRAA 105 mL/min/1.73m2 Normal >60 [facility] Comment on above: Performed By: #### C MP, LIPD, CBCAD #### [facility] [address], [place] [id number] eGFRNAA 87 mL/min/1.73m2 Normal >60 [facility] Specialist Comment on above: Performed By: #### C MP, LIPD, CBCAD #### [facility] [address], [place] [id number] Globulin (S) [Mass/Vol] 3.1 g/dL Normal 1.9-3.7 [facility] Dragline Operator Comment on above: Performed By: #### C MP, LIPD, CBCAD #### [facility] [address], [place] [id number] Glucose [Mass/Vol] 113 mg/dL High 65-99 [facility] Dragline Operator Comment on above: Result Comment: For FASTING Glucose --- ADA reference ranges: Normal 65-99 mg/dl Prediabetes 100-125 Diabetes >/= 126 Performed By: #### C NATALIYA, LIPD, CBCAD #### [facility] [address], [place] [id number] Potassium [Moles/Vol] 4.4 mmol/L Normal 3.5-5.5 [facility] Dragline Operator Comment on above: Performed By: #### C NATALIYA, LIPD, CBCAD #### [facility] [address], [place] [id number] Protein [Mass/Vol] 7.4 g/dL Normal 6.1-8.1 [facility] Dragline Operator Comment on above: Performed By: #### C NATALIYA, LIPD, CBCAD #### [facility] [address], [place] [id number] Sodium [Moles/Vol] 141 mmol/L Normal 135-146 [facility] Dragline Operator Comment on above: Performed By: #### C NATALIYA, LIPD, CBCAD #### [facility] [address] [facility] [place] [id number] Urea nitrogen [Mass/Vol] 27 mg/dL High 7-25 [facility] Dragline Operator Comment on above: Performed By: #### C NATALIYA, LIPD, CBCAD #### [facility] [address], [place] [id number] Lipid Panelon 09-26-2021 Cholesterol [Mass/Vol] 212 mg/dL High 125-200 [facility] Dragline Operator Comment on above: Result Comment: Low risk < 200mg/dL Borderline risk 201-239 mg/dl High risk > or equal to 240 Performed By: #### C MP, LIPD, CBCAD #### [facility] [address] [facility] [place] [id number] Cholesterol in HDL [Mass/Vol] 54 mg/dL Normal >40 [facility] Dragline Operator Comment on above: Result Comment: High Cardiovascular Risk HDL <40 mg/dL Low Cardiovascular Risk HDL > or equal to 60 mg/dl Performed By: #### C MP, LIPD, CBCAD #### [facility] [address] [facility] [place] [id number] Cholesterol in LDL [Mass/Vol] 128 mg/dL Normal [facility] Specialist Comment on above: Result Comment: LDL ATP III CLASSIFICATION LDL less than 100 mg/dl Optimal LDL 100-129 mg/dl Near or above optimal LDL 130-159 Borderline high LDL 160-189 High LDL greater than 189 mg/dl Very High Performed By: #### C MP, LIPD, CBCAD #### [facility] [address], [place] [id number] Cholesterol in VLDL [Mass/Vol] 30 mg/dL Normal [facility] Specialist Comment on above: Performed By: #### C MP, LIPD, CBCAD #### [facility] [address], [place] [id number] Cholesterol.total/C holesterol in HDL [Mass ratio] 4 {ratio} Normal [facility] Specialist Comment on above: Performed By: #### C MP, LIPD, CBCAD #### [facility] [address], [place] [id number] Triglyceride [Mass/Vol] 150 mg/dL Normal 30-150 [facility] Dragline Operator Comment on above: Result Comment: TRIG ATPIII CLASSIFICATIONS TRIG less than 150 mg/dl Normal TRIG 150-199 mg/dl Borderline High TRIG 200-500 mg/dl High TRIG greather than 500 mg/dl Very High Performed By: #### C MP, LIPD, CBCAD #### [facility] [address], [place] [id number] Prostatic Specific Antigen, Totalon 09-26-2021 TPSA 1.920 ng/mL Normal <4.000 [facility] Dragline Operator Comment on above: Result Comment: PSA Test Method: ECLIA/Kwan e 601 Performed By: #### P SA #### [facility] [address], [place] [id number] Encounters Encounter Date Encounter Type Care Provider Facility Start: 03-04-2024 End: 03-04-2024 ambulatory Deborah Fontana Facility:[facility] Start: 03-04-2024 End: 03-04-2024 Patient encounter procedure Deborah Fontana [facility] Start: 02-11-2024 End: 02-11-2024 Bamboo flowsheet Anyi Eaton MD Work Phone: [facility] Start: 02-11-2024 End: 02-11-2024 Bamboo flowsheet Anyi Eaton MD Work Phone: [facility] Start: 02-11-2024 End: 02-11-2024 Office outpatient visit 15 minutes Anyi Eaton MD Work Phone: [facility] Comment on above: Seborrheic keratosis [...] [place] Start: 05-16-2022 End: 07-04-2022 ambulatory COURTNEY MORALES Facility:[facility] Start: 03-14-2022 End: 03-15-2022 ambulatory COURTNEY MORALES Facility:[facility] Start: 02-14-2022 End: 02-15-[address] INEZ SHERMAN . Facility:[facility] Start: 09-20-2021 End: 09-21-[address] INEZ SHERMAN . Facility:[facility] Start: 11-09-2006 ambulatory [facility] Work Phone: Orthopaedics Start: 11-09-2006 End: 11-09-2006 Patient encounter procedure [facility] Work Phone: [facility] Procedures Date Procedure Procedure Detail Performing Clinician Start: 02-11-2024 CRYOTHERAPY SKIN LESION Anyi Eaton MD Work Phone: Plan of Treatment Date Care Activity Detail Author Start: 08-11-2024 End: 08-11-2024 Patient encounter procedure 08/11/2024 1:00 PM EDT Office Visit [facility] [address] [place] [phone] Anyi Eaton MD [address] [place] [address] [facility] Start: 02-11-2024 End: 02-11-2024 Patient encounter procedure 02/11/2024 1:00 PM EDT Office Visit [facility] [address] [place] [phone] Anyi Eaton MD [address] [place] [address] Arrived [facility] Comment on above: Arrived Start: 01-06-2024 Influenza vaccination Influenza Vacc ine (#1) [facility] Start: 05-23-2022 Screening for malign ant neoplasm of colon [facility] Start: 09-15-2021 Pneumococcal Vaccine : 65+ Years (2 of 2 - PCV) Pneumococcal Vaccine: 65+ Years (2 of 2 - PCV) [facility] Start: 01-05-2021 Influenza vaccination INFLUENZA (Sea son Ended) [facility] Start: 2017 ADVANCE DIRECTIVE DISCUSSION ADVANCE DIRECTIVE DISCUSSION [facility] Start: 2017 PNEUMOVAX AGE 65 AND OVER WITH 5YR LOOKBACK (#1) PNEUMOVAX AGE 65 AND OVER WITH 5YR LOOKBACK (#1) [facility] Start: 08-31-2007 PROSTATE CANCER SCRE ENING DISCUSSION PROSTATE CANCER SCREENING DISCUSSION [facility] Start: 2002 Screening for malign ant neoplasm of colon [facility] Start: 2002 SHINGRIX VACCINE (1 of 2) SHINGRIX V ACCINE (1 of 2) [facility] Start: 1997 DIABETES SCREEN DIABETES SCREEN [facility] Start: 08-31-1987 LIPID SCREEN LIPID SCREEN [facility] Start: 08-31-1971 Urine microalbumin profile DTAP,TDAP,TD (1 - Tdap) [facility] Start: 1970 HEPATITIS C SCREENING HEPATITIS C SC REENING [facility] Start: 1964 Adult depression screening assessment DEPRESSION SCREENING [facility] Start: 1964 COVID-19 VACCINE (1) COVID-19 VACCIN E (1) [facility] Start: 1950 Medicare Annual Well ness (AWV) Medicare Annual Wellness (AWV) [facility] Start: 1950 Screening for malign ant neoplasm of colon [facility] Immunizations Immunization Date Immunization Notes Care Provider Fa cility 09-15-2020 pneumococcal polysaccharide vaccine, 23 valent Anyi Eaton MD Work Phone: [facility] Payers Date Payer Category Payer Medicare [facility] E MEDICARE [facility] MEDICARE REPLACEMENT [id number] 2022-Present [address] [address] [place] [phone] [id number] 2022 Private Health Insurance [id number] 2006 Unknown [employer] BLUE CARD PPO [id number] 2006-2008 PPO [id number] 1959 Medicare [id number] 1959 Private Health Insurance ARB RZYWJ [id number] 1959 Self-pay [id number] 1952 Unknown [id number] 1952 Unknown [id number] 1952 Unknown [id number] 1952 Unknown [id number] 1952 Unknown [id number] 1952 Unknown [id number] Unknown Self Pay [id number] Unknown [id number] Unknown [id number] Social History Date Type Detail [facility] Start: 1950 Sex Assigned At Male F [facility] Start: 1950 Sex Assigned At Not on file [facility] Start: 09-07-2022 Tobacco smoking stat [facility] Never smoked tobacco [facility] Start: 09-07-2022 Tobacco use and exposure Smokeless tobacco non-user [facility] Start: 08-14-2023 End: 02-11-2024 Alcoholic beverage intake Current drinker of alcohol (finding) [facility] Start: 08-14-2023 End: 11-26-2023 Alcoholic beverage intake [facility] Start: 08-14-2023 End: 11-26-2023 Tobacco use panel [facility] Start: 09-07-2022 Alcohol Comment coffee and sod a 2-3 cups per day [facility] Tobacco smoking status No Smokin g Status Entered [facility] Goals Date Patient Goal Desired Activity [...] Ear, Right Forehead, Right Parotid Area, Right Mormonism (2), Right Zygomatic Area (3) Erythematous scaly [...] limited to risks of scarring, 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 [...] Ear, Right Forehead, Right Parotid Area, Right Mormonism (2), Right Zygomatic Area (3) Next Visit: 6 months skin exam documented in this encounter [facility] Clinical Note 03-15-2022 Note Date & [...] ESPITIA Date: 2022-03-15 08:54 [facility] History of Present illness Narrative [...] application of brace.. Darian Zhouwood Cast Beeper: [id number] documented in this encounter [facility] Evaluation + Plan note Note Date & Type Note Facility Evaluation + Plan note No data available for this section [facility] Evaluation note Note Date & Type Note Facility Evaluation note Diagnosis Plantar fascial fibromatosis- Primary documented in this encounter [facility] Evaluation note Note Date & Type Note Facility Evaluation note Diagnosis Seborrheic keratosis- Primary Lentigines History of basal cell carcinoma Personal history of other malignant neoplasm of skin History of SCC (squamous cell carcinoma) of skin Personal history of other malignant neoplasm of skin Actinic keratosis documented in this encounter [facility] Discharge instructions Note Date & Type Note Facility Hospital Discharge instructions No data available for this section [facility] [employer] Progress note Note Date & Type Note Facility Progress note No data available for this section [facility] Assessments No Assessments Information Available Summary [...] or prosecute any alcohol or drug abuse patient.[facility] (unrecognized sect ion and content) No Status Records FoundNo Status Records FoundNo Status Records FoundNo Status Records Found INFORMATION SOURCE (unrecogn ized section and content) DATE CREATED AUTHOR 09/27/2021 [facility] dical Specialist DATE CREATED AUTHOR AUTHOR'S NICHELLE NEVILLE 09/06/2022 [facility] DATE CREATED AUTHOR AUTHOR'S ORGANIZ ATION 02/12/2024 [facility] Specialists EPIC DATE CREATED AUTHOR AUTHOR'S ORGANIZ ATION 03/06/2024 [facility] Care Teams (unrecognized sec tion and content) [employer] Relationship Specialty Start Date End Date Carolyn Byrnes MD [address] [place] [address] PCP - General Internal Medicine 11/22/22 Anyi Eaton MD [address] [place] [address] Referring Physician Dermatology 11/17/22 [employer] Math [employer] Relationship Specialty Start Date End Date Carolyn Byrnes MD [address] [place] [address] PCP - General Internal Medicine 11/22/22 Anyi Eaton MD [address] [place] [address] Referring Physician Dermatology 11/17/22 Reason for Visit [...] BE BASED ON THE PRIMARY CLINICAL RECORDS. [employer] provides no warranty or guarantee of the accuracy or completeness of information in this document.
[2024-07-31 10:24] LABS: Bilirubin Urine MODERATE (NEGATIVE); Blood Urine NEGATIVE (NEGATIVE); Clarity Urine CLEAR (CLEAR); Color Urine DK. ORANGE (YELLOW); Glucose Urine UA NEGATIVE (NEGATIVE); Ketones Urine NEGATIVE (NEGATIVE); Leukocyte Esterase Urine NEGATIVE (NEGATIVE); Nitrite Urine NEGATIVE (NEGATIVE); Protein Urine NEGATIVE (NEG/TRACE); Specific Gravity Urine 1.025 (1.005-1.025)
[2024-07-31 10:37] LABS: Bacteria Urine TRACE #/HPF (NONE SEEN); Calcium Oxalate Crystals Urine RARE; Cast Seen? NONE SEEN #/LPF (NONE SEEN); Crystals Seen? Seen #/HPF (None Seen); Mucus Urine TRACE (NONE SEEN); RBC Urine 0-2 #/HPF (0-2); Squamous Epithelial Cell Urine RARE #/LPF (NONE/RARE); Urine Culture Indicated NO; WBC Urine 0-2 #/HPF (NONE SEEN)
== END 2024-07-31 09:34 | disposition home or self-care (01) ==
LOC: LAB 09:33
PROVIDERS: PCP Internal Medicine; Visit Provider Family Medicine
DX: R31.9 Hematuria, unspecified (principal)
CPT/HCPCS: 81001; 87086

== ENCOUNTER 2024-07-31 12:25 | Outpatient (OUT) | payer MEDICARE, SELFPAY ==
--- OUTSIDE RECORDS SUMMARY | 2024-07-31 12:49 | XMS_ITS | CCD ---
Author Organization [facility] Care Team Providers Care Distillation Operator Name Role Phone Carolyn Byrnes MD Primary Care Provider [phone] Lewis Kruse Primary Care Provider U COURTNEY [...] Q6H 10 3 October 12, 2018 9:45pm [id number] 200 actuat albuterol 0.09 mg/actuat metered dose [...] Range Facil ity No Panel Informationon 02-10 [facility] Complete Blood Count with Au to Diffon 09-26-2021 Basophils (Bld) [#/Vol] 0.07 10*3/uL Normal 0.00-0.20 [facility] [employer] Comment on above: Performed By: #### C MP, LIPD, CBCAD #### [facility] [address], [place] [id number] Basophils/100 WBC (Bld) 1.2 % Normal [facility] Specialist Comment on above: Performed By: #### C MP, LIPD, CBCAD #### [facility] [address], [place] [id number] Eosinophils (Bld) [#/Vol] 0.24 10*3/uL Normal 0.02-0.50 [facility] [employer] Comment on above: Performed By: #### C MP, LIPD, CBCAD #### [facility] [address], [place] [id number] Eosinophils/100 WBC (Bld) 4.0 % Normal [facility] Specialist Comment on above: Performed By: #### C MP, LIPD, CBCAD #### [facility] [address], [place] [id number] Erythrocyte distribution width (RBC) [Ratio] 13.9 % Normal 11.0-15.0 [facility] Driver Comment on above: Performed By: #### C MP, LIPD, CBCAD #### [facility] [address], [place] [id number] Hematocrit (Bld) [Volume fraction] 46.0 % Normal 38.5-50.0 [facility] Specialist Comment on above: Performed By: #### C DESTINY AND, CBCAD #### [facility] [address], [place] [id number] Hemoglobin (Bld) [Mass/Vol] 15.1 g/dL Normal 13.0-17.1 [facility] [employer] Comment on above: Performed By: #### C NATALIYA LIPD, CBCAD #### [facility] [address], [place] [id number] Lymphocytes (Bld) [#/Vol] 2.1 10*3/uL Normal 0.9-3.9 [facility] Special[facility] Comment on above: Performed By: #### C CHANA AN, CBCAD #### [facility] [address], [place] [id number] Lymphocytes/100 WBC (Bld) 34.8 % Normal [facility] Driver Comment on above: Performed By: #### C NATALIYA LIPD, CBCAD #### [facility] [address], [place] [id number] MCH (RBC) [Entitic mass] 30.1 pg Normal 27.0-33.0 [facility] [employer] Comment on above: Performed By: #### C CHANA AN, CBCAD #### [facility] [address], [place] [id number] MCHC (RBC) [Mass/Vol] 32.8 g/dL Normal 32.0-36.0 [facility] Comment on above: Performed By: #### C NATALIYA LIPD, CBCAD #### [facility] [address], [place] [id number] MCV (RBC) [Entitic vol] 92 fL Normal 80-100 [facility] Driver Comment on above: Performed By: #### C NATALIYA LIPD, CBCAD #### [facility] [address], [place] [id number] Monocytes (Bld) [#/Vol] 0.6 10*3/uL Normal 0.2-0.9 [facility] Driver Comment on above: Performed By: #### C NATALIYA LIPD, CBCAD #### [facility] [address], [place] [id number] Monocytes/100 WBC (Bld) 9.4 % Normal [facility] Comment on above: Performed By: #### C MP, LIPD, CBCAD #### [facility] [address], [place] [id number] Neutrophils (Bld) [#/Vol] 3.0 10*3/uL Normal 1.5-7.8 [facility] Comment on above: Performed By: #### C MP, LIPD, CBCAD #### [facility] [address], [place] [id number] Neutrophils/100 WBC (Bld) 50.3 % Normal [facility] Comment on above: Performed By: #### C MP LIPD, CBCAD #### [facility] [address], [place] [id number] Platelet mean volume (Bld) [Entitic vol] 11.00 fL Normal 7.50-12.50 [facility] Comment on above: Performed By: #### C MP, LIPD, CBCAD #### [facility] [address], [place] [id number] Platelets (Bld) [#/Vol] 246 10*3/uL Normal 140-400 [facility] Comment on above: Performed By: #### C MP, LIPD, CBCAD #### [facility] [address], [place] [id number] RBC (Bld) [#/Vol] 5.02 10*6/uL Normal 4.20-5.80 [facility] Comment on above: Performed By: #### C MP, LIPD, CBCAD #### [facility] [address], [place] [id number] RDW-SD 47.2 fL Normal 37.0-50.0 [facility] Comment on above: Performed By: #### C MP, LIPD, CBCAD #### [facility] [address], [place] [id number] WBC (Bld) [#/Vol] 6.0 10*3/uL Normal 3.8-11.0 [facility] Comment on above: Performed By: #### C MP, LIPD, CBCAD #### [facility] [address], [place] [id number] Comprehensive Metabolic Pane berta 09-26-2021 Albumin [Mass/Vol] 4.3 g/dL Normal 3.6-5.1 [facility] Comment on above: Performed By: #### C MP, LIPD, CBCAD #### [facility] [address], [place] [id number] Albumin/Globulin [Mass ratio] 1.4 {ratio} Normal 1.0-2.5 [facility] Comment on above: Performed By: #### C MP, LIPD, CBCAD #### [facility] [address], [place] [id number] ALP [Catalytic activity/Vol] 69 U/L Normal 40-129 [facility] Comment on above: Performed By: #### C MP, LIPD, CBCAD #### [facility] [address], [place] [id number] ALT [Catalytic activity/Vol] 26 U/L Normal 9-46 [facility] Comment on above: Result Comment: 04/06 Female reference range changed. Performed By: #### C MP, LIPD, CBCAD #### [facility] [address], [place] [id number] Anion gap [Moles/Vol] 16 mmol/L Normal 12-20 [facility] Comment on above: Result Comment: Effe ctive 05/12/2019 reference range changed. Performed By: #### C MP, LIPD, CBCAD #### [facility] [address], [place] [id number] AST [Catalytic activity/Vol] 24 U/L Normal 10-40 [facility] Comment on above: Performed By: #### C MP, LIPD, CBCAD #### [facility] [address], [place] [id number] Bilirubin [Mass/Vol] 0.32 mg/dL Normal 0.30-1.20 [facility] Comment on above: Performed By: #### C MP, LIPD, CBCAD #### [facility] [address], [place] [id number] BUN/CREA 31 Ratio High 6-22 [facility]ist Comment on above: Performed By: #### C MP, LIPD, CBCAD #### [facility] [address], [place] [id number] Calcium [Mass/Vol] 9.6 mg/dL Normal 8.6-10.2 [facility] Specialist Comment on above: Performed By: #### C MP, LIPD, CBCAD #### [facility] [address], [place] [id number] Chloride [Moles/Vol] 105 mmol/L Normal 98-107 [facility] Comment on above: Performed By: #### C MP, LIPD, CBCAD #### [facility] [address], [place] [id number] CO2 [Moles/Vol] 24 mmol/L Normal 20-31 [facility] Comment on above: Performed By: #### C MP, LIPD, CBCAD #### [facility] [address], [place] [id number] Creatinine [Mass/Vol] 0.9 mg/dL Normal 0.7-1.4 [facility]ist Comment on above: Performed By: #### C MP, LIPD, CBCAD #### [facility] [address], [place] [id number] eGFRAA 105 mL/min/1.73m2 Normal >60 [facility] Comment on above: Performed By: #### C MP, LIPD, CBCAD #### [facility] [address], [place] [id number] eGFRNAA 87 mL/min/1.73m2 Normal >60 [facility] Specialist Comment on above: Performed By: #### C MP, LIPD, CBCAD #### [facility] [address], [place] [id number] Globulin (S) [Mass/Vol] 3.1 g/dL Normal 1.9-3.7 [facility] Comment on above: Performed By: #### C MP, LIPD, CBCAD #### [facility] [address], [place] [id number] Glucose [Mass/Vol] 113 mg/dL High 65-99 [facility] Pizza Driver Comment on above: Result Comment: For FASTING Glucose --- ADA reference ranges: Normal 65-99 mg/dl Prediabetes 100-125 Diabetes >/= 126 Performed By: #### C NATALIYA, LIPD, CBCAD #### [facility] [address], [place] [id number] Potassium [Moles/Vol] 4.4 mmol/L Normal 3.5-5.5 [facility] Comment on above: Performed By: #### C NATALIYA, LIPD, CBCAD #### [facility] [address], [place] [id number] Protein [Mass/Vol] 7.4 g/dL Normal 6.1-8.1 [facility] Pizza Driver Comment on above: Performed By: #### C NATALIYA, LIPD, CBCAD #### [facility] [address], [place] [id number] Sodium [Moles/Vol] 141 mmol/L Normal 135-146 [facility] Driver Comment on above: Performed By: #### C NATALIYA, LIPD, CBCAD #### [facility] [address] [facility] [place] [id number] Urea nitrogen [Mass/Vol] 27 mg/dL High 7-25 [facility] Comment on above: Performed By: #### C NATALIYA, LIPD, CBCAD #### [facility] [address], [place] [id number] Lipid Panelon 09-26-2021 Cholesterol [Mass/Vol] 212 mg/dL High 125-200 [facility] Pizza Driver Comment on above: Result Comment: Low risk < 200mg/dL Borderline risk 201-239 mg/dl High risk > or equal to 240 Performed By: #### C MP, LIPD, CBCAD #### [facility] [address] [facility] [place] [id number] Cholesterol in HDL [Mass/Vol] 54 mg/dL Normal >40 [facility] Driver Comment on above: Result Comment: High Cardiovascular Risk HDL <40 mg/dL Low Cardiovascular Risk HDL > or equal to 60 mg/dl Performed By: #### C MP, LIPD, CBCAD #### [facility] [address] [facility] [place] [id number] Cholesterol in LDL [Mass/Vol] 128 mg/dL Normal [facility] Specialist Comment on above: Result Comment: LDL ATP III CLASSIFICATION LDL less than 100 mg/dl Optimal LDL 100-129 mg/dl Near or above optimal LDL 130-159 Borderline high LDL 160-189 High LDL greater than 189 mg/dl Very High Performed By: #### C MP, LIPD, CBCAD #### [facility] [address], [place] [id number] Cholesterol in VLDL [Mass/Vol] 30 mg/dL Normal [facility] Specialist Comment on above: Performed By: #### C MP, LIPD, CBCAD #### [facility] [address], [place] [id number] Cholesterol.total/C holesterol in HDL [Mass ratio] 4 {ratio} Normal [facility] Specialist Comment on above: Performed By: #### C MP, LIPD, CBCAD #### [facility] [address], [place] [id number] Triglyceride [Mass/Vol] 150 mg/dL Normal 30-150 [facility] Pizza Driver Comment on above: Result Comment: TRIG ATPIII CLASSIFICATIONS TRIG less than 150 mg/dl Normal TRIG 150-199 mg/dl Borderline High TRIG 200-500 mg/dl High TRIG greather than 500 mg/dl Very High Performed By: #### C MP, LIPD, CBCAD #### [facility] [address], [place] [id number] Prostatic Specific Antigen, Totalon 09-26-2021 TPSA 1.920 ng/mL Normal <4.000 [facility] Pizza Driver Comment on above: Result Comment: PSA Test Method: ECLIA/Kwan e 601 Performed By: #### P SA #### [facility] [address], [place] [id number] Encounters Encounter Date Encounter Type Care Provider Facility Start: 03-04-2024 End: 03-04-2024 ambulatory Deborah Fontana Facility:[facility] Start: 03-04-2024 End: 03-04-2024 Patient encounter procedure Deborah Fontana [facility] Start: 02-11-2024 End: 02-11-2024 Bamboo flowsheet Anyi Eaton MD Work Phone: [facility] Start: 02-11-2024 End: 02-11-2024 Bamboo flowsheet Anyi Eaton MD Work Phone: [facility] Start: 02-11-2024 End: 02-11-2024 Office outpatient visit 15 minutes Anyi Eaton MD Work Phone: [facility] Comment on above: Seborrheic keratosis [...] . Facility:[facility] Start: 11-09-2006 ambulatory [facility] Work Phone: Orthopaedics Start: 11-09-2006 End: 11-09-2006 Patient encounter procedure [facility] Work Phone: [facility] Procedures Date Procedure Procedure Detail Performing Clinician Start: 02-11-2024 CRYOTHERAPY SKIN LESION Anyi Eaton MD Work Phone: Plan of Treatment Date Care Activity Detail Author Start: 08-11-2024 End: 08-11-2024 Patient encounter procedure 08/11/2024 1:00 PM EDT Office Visit [facility] [address] [place] [phone] Anyi Eaton MD [address] [place] [address] [facility] Start: 02-11-2024 End: 02-11-2024 Patient encounter procedure 02/11/2024 1:00 PM EDT Office Visit [facility] [address] [place] [phone] Anyi Eaton MD [address] [place] [address] Arrived [facility] Comment on above: Arrived Start: 01-06-2024 Influenza vaccination Influenza Vacc ine (#1) [facility] Start: 05-23-2022 Screening for malign ant neoplasm of colon [facility] Start: 09-15-2021 Pneumococcal Vaccine : 65+ Years (2 of 2 - PCV) Pneumococcal Vaccine: 65+ Years (2 of 2 - PCV) [facility] Start: 01-05-2021 Influenza vaccination INFLUENZA (Sea son Ended) [facility] Start: 2017 ADVANCE DIRECTIVE DISCUSSION ADVANCE DIRECTIVE DISCUSSION [facility] Start: 2017 PNEUMOVAX AGE 65 AND OVER WITH 5YR LOOKBACK (#1) PNEUMOVAX AGE 65 AND OVER WITH 5YR LOOKBACK (#1) [facility] Start: 08-31-2007 PROSTATE CANCER SCRE ENING DISCUSSION PROSTATE CANCER SCREENING DISCUSSION [facility] Start: 2002 Screening for malign ant neoplasm of colon [facility] Start: 2002 SHINGRIX VACCINE (1 of 2) SHINGRIX V ACCINE (1 of 2) [facility] Start: 1997 DIABETES SCREEN DIABETES SCREEN [facility] Start: 08-31-1987 LIPID SCREEN LIPID SCREEN [facility] Start: 08-31-1971 Urine microalbumin profile DTAP,TDAP,TD (1 - Tdap) [facility] Start: 1970 HEPATITIS C SCREENING HEPATITIS C SC REENING [facility] Start: 1964 Adult depression screening assessment DEPRESSION SCREENING [facility] Start: 1964 COVID-19 VACCINE (1) COVID-19 VACCIN E (1) [facility] Start: 1950 Medicare Annual Well ness (AWV) Medicare Annual Wellness (AWV) [facility] Start: 1950 Screening for malign ant neoplasm of colon [facility] Immunizations Immunization Date Immunization Notes Care Provider Fa cility 09-15-2020 pneumococcal polysaccharide vaccine, 23 valent Anyi Eaton MD Work Phone: [facility] Payers Date Payer Category Payer Medicare [facility] MEDICARE [facility] MEDICARE REPLACEMENT [id number] 2022-Present [address] [address] [place] [address] [id number] 2022 Private Health Insurance [id number] 2006 Unknown [employer]UE CARD PPO [id number] 2006-2008 PPO [id number] 1959 Medicare [id number] 1959 Private Health Insurance LAB RZYWJ [id number] 05-07-1959 Self-pay [id number] 1950 Unknown [id number] 1952 Unknown [id number] 1950 Unknown [id number] 1950 Unknown [id number] 1950 Unknown [id number] .[id number] 1950 Unknown [id number] Unknown Self Pay [id number] Unknown [id number] Unknown [id number] .593 Social History Date Type Detail Facility [facility] Start: 1950 Sex Assigned At [facility] Start: 1950 Sex Assigned At Not on file [facility] Start: 09-07-2022 Tobacco smoking stat [facility] Never smoked tobacco [facility] Start: 09-07-2022 Tobacco use and exposure Smokeless tobacco non-user [facility] Start: 08-14-2023 End: 02-11-2024 Alcoholic beverage intake Current drinker of alcohol (finding) [facility] Start: 08-14-2023 End: 11-26-2023 Alcoholic beverage intake [facility] Start: 08-14-2023 End: 11-26-2023 Tobacco use panel [facility] Start: 09-07-2022 Alcohol Comment coffee and sod a 2-3 cups per day [facility] Tobacco smoking status No Smokin g Status Entered [facility] Goals Date Patient Goal Desired [...] Ear, Right Forehead, Right Parotid Area, Right Hoahaoism (2), Right Zygomatic Area (3) Erythematous scaly [...] limited to risks of scarring, darker or siebel consultant pigmentary changes, recurrence, incomplete removal and infection. [...] Ear, Right Forehead, Right Parotid Area, Right Hoahaoism (2), Right Zygomatic Area (3) Next Visit: 6 months skin exam documented in this encounter [facility] Clinical Note 03-15-2022 Note Date & Type [...] by: HAN ESPITIA Date: 2022-03-15 08:54 [facility] History of Present illness Narrative 11-09-2006 11/09/2006 5:39 PM EDT Note Date & Type Note Facility 11-09-2006 History of Presen t illness Narrative PT ASSESSMENT - CASTING ROOM Naomi presents for cast removal and Application of Brace. Applied night splint and pneumatic aircast walker to left foot Patient has been instructed in Care and proper application of brace.. Darian Zhouwood Cast Beeper: [id number] documented in this encounter [facility] Evaluation + Plan note Note Date & Type Note Facility Evaluation + Plan note No data available for this section [facility] Evaluation note Note Date & Type Note Facility Evaluation note Diagnosis Plantar fascial fibromatosis- Primary documented in this encounter [facility] Evaluation note Note Date & Type Note Facility Evaluation note Diagnosis Seborrheic keratosis- Primary Lentigines History of basal cell carcinoma Personal history of other malignant neoplasm of skin History of SCC (squamous cell carcinoma) of skin Personal history of other malignant neoplasm of skin Actinic keratosis documented in this encounter [facility] Hospital Discharge instructions Note Date & Type Note Facility Hospital Discharge instructions No data available for this section [facility] [employer] Progress note Note Date & Type Note Facility Progress note No data available for this section [facility] Assessments No Assessments Information Available Summary [...] or prosecute any alcohol or drug abuse patient.[facility] (unrecognized sect ion and content) No Status Records FoundNo Status Records FoundNo Status Records FoundNo Status Records Found INFORMATION SOURCE (unrecogn ized section and content) DATE CREATED AUTHOR 09/27/2021 [facility] DATE CREATED AUTHOR AUTHOR'S NICHELLE NEVILLE 09/06/2022 [facility] DATE CREATED AUTHOR AUTHOR'S ORGANIZ ATION 02/12/2024 [facility] EPIC DATE CREATED AUTHOR AUTHOR'S ORGANIZ ATION 03/06/2024 Zan Willis [facility] Care Teams (unrecognized sec tion and content) Distillation Operator Relationship Specialty Start Date End Date Carolyn Byrnes MD [address] [place] [address] PCP - General Internal Medicine 11/22/22 Anyi Eaton MD [address] [place] [address] Referring Physician Dermatology 11/17/22 Distillation Operator Relationship Specialty Start Date End Date Carolyn Byrnes MD [address] [place] [address] PCP - General Internal Medicine 11/22/22 Anyi Eaton MD [address] [place] [address] Referring Physician Dermatology 11/17/22 Reason for Visit [...] BE BASED ON THE PRIMARY CLINICAL RECORDS. [email or web address] provides no warranty or guarantee of the accuracy or completeness of information in this document.
--- NOTE | 2024-07-31 12:57 | US_ITS ---
The [address] [address] Patient Name: NAOMI PANIAGUA MRN: [id number] date: 1950 Sex: M Assigned Patient Location: LAB Current Patient Location: LAB Accession/Order Number: [id number] Exam Date: 07/31/2024 14:08 Report Date: 07/31/2024 14:19 At the request of: INEZ SHERMAN MD Procedure: US abdomen complete COMPLETE ABDOMINAL ULTRASOUND HISTORY: Jaundice. Mid back pain for one day. Dark urine. FINDINGS: LIVER: Unremarkable GALLBLADDER: There is shadowing echogenic material identified within the gallbladder lumen consistent with multiple gallstones/gallbladder sludge. Difficult to assess the thickness of the gallbladder wall secondary to intraluminal debris defect. Negative ultrasound Briones's sign. BILE DUCTS: 8 mm prominence of common bile duct. PANCREAS: The liver assessment of pancreas secondary to overlying bowel gas. RIGHT KIDNEY: 11.4 cm. It contains anechoic cyst measuring up to 5.3 cm. Mild right pelviectasis. LEFT KIDNEY: 12.2 cm. 2 anechoic benign cyst measuring up to 5.4 cm. No hydronephrosis identified. No renal calculus seen. No perirenal abnormality seen. No splenic mass or enlargement seen. Assessment of spleen limited with ultrasound. The upper portions of the IVC and abdominal aorta unremarkable. No free intraperitoneal fluid seen. US/US abdomen complete IMPRESSION: Cholelithiasis. Indeterminate thickness of the bladder wall. 8mm prominence of common bile duct. Ductal stone not seen with ultrasound. Obstructing ductal stone not excluded. Consider follow-up assessment with contrasted MRI of the abdomen with MRCP. Alternatively imaging may include contrasted CT of the abdomen and pelvis. Limited assessment of the pancreas. Benign anechoic renal cysts. Mild right pelviectasis. Impression dictated by: Casimiro Gonzáles M.D.07/31/2024 2:19 PM Dictation Location: [place] [address] Electronically authenticated by: [id number] Y Date: 07/31/2024 14:19
[2024-07-31 13:10] LABS: Ammonia <10 umol/L (11-32)
[2024-07-31 13:14] LABS: Basophils Percent Auto 0.8 % (0.2-2.0); Eosinophils Absolute Auto 0.1 10^3/uL (0.0-0.7); Eosinophils Percent Auto 2.7 % (0.9-7.0); Hematocrit 45.4 % (42.0-54.0); Hemoglobin 15.6 g/dL (14.0-18.0); Immature Granulocytes Abs Auto 0.01 10^3/uL (0.00-0.03); Immature Granulocytes Pct Auto 0.2 % (0.0-0.5); Lymphocytes Absolute Auto 1.2 10^3/uL (1.2-3.8); Lymphocytes Percent Auto 23.9 % (20.5-60.0); Mean Corpuscular HGB Conc 34.4 g/dL (29.9-35.2); Mean Corpuscular Hemoglobin 30.6 pg (25.9-34.0); Mean Corpuscular Volume 89.2 fL (80.0-94.0); Mean Platelet Volume 10.1 fL (9.5-13.5); Monocytes Absolute Auto 0.4 10^3/uL (0.3-0.8); Monocytes Percent Auto 8.6 % (1.7-12.0); Neutrophils Absolute Auto 3.1 10^3/uL (1.4-6.5); Neutrophils Percent Auto 63.8 % (43.0-75.0); Platelet Count 246 10^3/uL (150-450); Red Blood Count 5.09 10^6/uL (4.70-6.10); Red Cell Distribution Width 13.7 % (11.0-15.0); White Blood Count 4.9 10^3/uL (4.0-11.0)
[2024-07-31 13:18] LABS: INR 1.02; Partial Thromboplastin Time 25.6 sec (22.3-36.2); Prothrombin Time 10.8 sec (9.0-11.6)
[2024-07-31 13:53] LABS: Albumin Globulin Ratio 0.9; Albumin Level 3.6 g/dL (3.4-5.0); Alkaline Phosphatase 233 U/L (46-116); Amylase 36 U/L (25-115); Anion Gap 11.9; Aspartate Amino Transferase 422 U/L (15-37); BUN Creatinine Ratio 16.8; Bilirubin Total 6.4 mg/dL (0.2-1.0); Carbon Dioxide 29.9 mmol/L (21.0-32.0); Chloride 104 mmol/L (98-107); Estimated GFR (African America >60 (>=60 mL/min/1.73m^2); Estimated GFR (Non-African Ame >60 (>=60 mL/min/1.73m^2); Glucose 91 mg/dL (74-106); Potassium 3.8 mmol/L (3.5-5.1); Sodium 142 mmol/L (136-145); Total Protein 7.6 g/dL (6.4-8.2)
[2024-07-31 14:00] LABS: Calcium 9.1 mg/dL (8.5-10.1)
[2024-07-31 14:03] LABS: Alanine Aminotransferase 609 U/L (16-63)
[2024-07-31 14:33] LABS: Bilirubin Direct 4.8 mg/dL (0.0-0.2)
[2024-08-01 05:10] LABS: HBsAg Screen Negative (Negative); HCV Ab Non Reactive (Non Reactive); Hep A Ab, IgM Negative (Negative); Hep B Core Ab, IgM Negative (Negative)
== END 2024-07-31 12:26 | disposition home or self-care (01) ==
LOC: LAB 12:26
PROVIDERS: PCP Internal Medicine; Visit Provider Family Medicine
DX: R31.9 Hematuria, unspecified (principal); R17 Unspecified jaundice; I10 Essential (primary) hypertension; R53.83 Other fatigue
CPT/HCPCS: 36415; 76700; 80053; 80074; 81001; 82140; 82150; 82248; 83690; 85025; 85610; 85730

== ENCOUNTER 2024-08-15 08:10 | Emergency (ER) | payer MEDICARE, SELFPAY ==
[2024-08-15 08:15] VITALS: BP 156/77; PULSE 74; TEMP 36.7; O2SAT 96; BMI 27.2
[2024-08-15 08:18] VITALS: BP 156/77
--- OUTSIDE RECORDS SUMMARY | 2024-08-15 08:19 | XMS_ITS | CCD ---
Author Organization [facility] Team Providers Care Supplier Specialist Name Role Phone Carolyn Byrnes MD Primary Care Provider Lewis Kruse Primary Care Provider U COURTNEY Cordova Attending Unavailable COURTNEY MORALES Admitting Unavailable NUPUR, DR HAN Dang Consulting Unavailable COURTNEY MORALES Consulting Unavailable HOY ., DR WILEY Attending Unavailable HOY ., DR WILEY Consulting Unavailable YAHIRY ., DR WILEY Admitting Unavailable YAHIRY ., DR WILEY Attending Unavailable YAHIRY ., DR WILEY Consulting Unavailable YAHIRY ., DR WILEY Admitting Unavailable COURTNEY MORALES Attending Unavailable COURTNEY MORALES Admitting Unavailable CAROLYN BYRNES Referring Unavailable JASMINA JESSICA Attending Unavailable ANYI EATON Attending Unavailable ANYI EATON Attending Unavailable Uma CRAWFORD, Anyi Farmer Unavailable Carolyn Byrnes MD Primary Care Provider Deborah Fontana Attending Unavailable INEZ LÓPEZ Referring Unavailable NEIL ROUSE Attending Unavailable MANFRED ARCINIEGA Referring Unavailable Unavailable Unavailable Unavailable Medications Current Medications Medication Drug Class(es) Dates Sig (Normalized) Sig (Original) acetaminophen 325 mg / oxyCODONE hydrochloride 5 mg oral tablet (1 source) Opioid Agonist Start: 10-12-2018 take 1 tablet by mouth every six hours Oxycodone-Acetamin ophen Active 1 TAB Oral Q6H 10 3 October 12, 2018 9:45pm [id number] 200 actuat albuterol 0.09 mg/actuat metered dose inhaler (6 sources) beta2-Adrenergic Agonist Start: 07-17-2023 take 2 [...] formoterol fumarate 0.0045 mg/actuat metered dose inhaler (6 sources) Corticosteroid, beta2-Adrenergic Agonist Start: 08-27-2023 budesonide-formoterol (Symbicort) 160-4.5 MCG/ACT inhaler Indications: Moderate persistent asthma without complication (CMS/HCC) USE 2 INHALATIONS BY MOUTH EVERY MORNING AND BEFORE BEDTIME 20.4 g 5 08/27/2023 Active Start: 10-12-2018 Budesonide-For moterol Active October 12, 2018 8:58pm esomeprazole 20 mg delayed release oral capsule (5 sources) Proton Pump Inhibitor take 1 capsule by mouth once daily esomeprazole (NexIUM) [address] capsule Take 1 capsule by mouth 1 (one) time each day at the same time. Active fluticasone propionate 0.05 mg/actuat metered dose nasal spray (5 sources) Corticosteroid Start: 07-17-19 24 take 1 [...] (1 source) Flank pain 02-27-2024 Episodic Asthma (5 sources) Uncomplicated moderate persistent asthma; Translations: [Moderate persistent asthma, uncomplicated] Onset: 09-13-2022 07-13-2023 Chronic Biliary tract disease (2 sources) Obstruction of bile duct; Translations: [Obstruction of bile duct] Onset: 08-01-2024 Chronic Disorders of lipid metabolism (5 sources) Pure hypercholesterolemia; Translations: [Pure hypercholesterolemia, unspecified] Onset: 09-13-2022 11-01-2022 Chronic Esophageal disorders (5 sources) Gastroesophageal reflux disease without esophagitis; Translations: [Gastro-esophageal reflux disease without esophagitis] Onset: 09-13-2022 07-13-2023 Chronic Hyperplasia of prostate (6 sources) Benign prostatic hypertrophy without outflow obstruction; Translations: [Benign prostatic hyperplasia without lower urinary tract symptoms] Onset: 03-18-2018 03-18-2018 Chronic Osteoarthritis (1 source) Generalized osteoarthritis of the hand; Translations: [Polyosteoarthritis, unspecified] Onset: 04-01-2008 04-01-2008 Chronic Other connective tissue disease (2 sources) Plantar fascial fibromatosis; Translations: [Plantar fascial fibromatosis] Onset: 10-30-2006 Episodic Other liver diseases (2 sources) Unspecified jaundice; Translations: [Unspecified jaundice] Onset: 08-01-2024 Episodic Other male genital disorders (1 source) [...] Documented Date Episodic/Chronic Calculus of urinary tract (12 sources) Kidney stone; Translations: [Calculus of kidney] Onset: 03-18-2018 Resolved: 02-23-2023 03-18-2018 Episodic Immunizations and screening for infectious [...] conditions (not mental disorders or infectious disease) (5 sources) Raised prostate specific antigen; Translations: [Elevated prostate specific antigen [PSA]] Onset: 09-13-2022 09-13-2022 Episodic Sprains and strains (2 sources) Thoracic back sprain; Translations: [Strain of left Achilles tendon, subsequent encounter] Onset: 05-23-2022 Episodic Results Test Name Value Interpretation Reference Range Facility HISTOLOGY - TISSUE EXAMon LAB AP ASR DISCLAIMER The interpretation of this case included the use of immunohistochemistry or special stains. These tests have not been cleared or approved by the U.S. Food and Drug Administration. The FDA has determined that such clearance or approval is not necessary. These tests are used for clinical purposes and should not be regarded as investigational or for research. This laboratory is certified to perform high complexity testing under the Clinical Laboratory Improvement Amendments of 1998. [facility] Comment on above: Performed By: #### L [id number] #### [facility] ([facility]) [address] [place] [address] LAB AP CASE REPORT Normal [facility] Comment on above: Result Comment: Surg ical Pathology Case: [id number] Authorizing Provider: Manfred Arciniega MD Collected: 08/01/2024 1301 Ordering Location: [facility] Received: 08/01/2024 [facility] Pathologist: Orin Zamudio MD Specimen: Gastric, r/o adenoma Performed By: #### L [id number] #### [facility] ([facility]) [address] [place] [address] LAB AP CLINICAL INFORMATION Order Diagnoses [facility] Comment on above: Result Comment: R17 - Jaundice [ICD-10-CM] Performed By: #### L [id number] #### [facility] ([facility]) [address] [place] [address] LAB AP DIAGNOSIS COMMENT [facility] Comment on above: Result Comment: Immu nohistochemical stains were performed with adequate controls. No H.pylori organisms are identified on immunostain. Performed By: #### L [id number] #### [facility] ([facility]) [address] [place] [address] LAB AP GROSS DESCRIPTION A. Gastric. [facility] Comment on above: Result Comment: The specimen is received in formalin labeled Naomi Forrester and gastric polyp, rule out adenoma. It consists of 3 barr-pink, lobulated pieces of mucosal tissue ranging from 0.2 cm to 1.0 cm in greatest dimension. The specimen is submitted entirely in 1 cassette. Venita Bullock, Pathologists' C[employer]arette [employer]am[employer] student Julio Braun [employer] Performed By: #### L [id number] #### [facility] ([facility]) [address] [place] [address] LAB AP MICROSCOPIC DESCRIPTION Microscopic examination performed. [facility] Comment on above: Performed By: #### L [id number] #### [facility] ([facility]) [address] [place] [address] LAB AP REPORT FINAL DIAGNOSIS NARRATIVE [facility] Comment on above: Result Comment: Stom ach, biopsy: - Fundic gland polyp (see comment) Performed By: #### L [id number] #### [facility] ([facility]) [address] [place] [address] HPon 08-01-2024 HP History Of Present Illness Naomi Forrester is a 73 y.o. male who was in his usual state of health until 2 days ago when he started having lower abdominal pain and noted to have dark urine. Ultrasound of right upper quadrant revealed cholelithiasis with a prominent common bile duct but no choledocholithiasis. Labs revealed elevated liver function test including hyperbilirubinemia. The patient denies any significant weight loss.. He has no history of smoking cigarettes. He drinks alcohol socially. The patient denies any abdominal pain. There is no history of pleuritis. Plan for endoscopic ultrasound to assess the finding of biliary obstruction with possible ERCP for common bile duct stone removal +/- stent placement. Past Medical History He has a past medical history of Asthma and GERD (gastroesophageal reflux disease). Surgical History He has a past surgical history that includes Plantar fascia release (Left) and Knee arthroscopy w/ arthrotomy (Bilateral). Social History He reports that he has never smoked. He has never used smokeless tobacco. He reports current alcohol use of about 3.0 standard drinks of alcohol per week. He reports that he does not use drugs. Family History No family history on file. Allergies Patient has no known allergies. Medications (Not in a hospital admission) Review of Systems Constitutional: Negative. Respiratory: Negative. Cardiovascular: Negative. Gastrointestinal: Negative. Genitourinary: Negative. Skin: Negative. Last Recorded Vitals Visit Vitals BP (!) 173/96 Pulse 64 Temp 36.2 ???C (97.2 ???F) (Temporal) Resp 18 Ht 1.803 m (5' 11 ) Wt 90.9 kg (200 lb 6.4 oz) SpO2 100% BMI 27.95 kg/m??? Smoking Status Never BSA 2.13 m??? Physical Exam HEENT: Anicteric sclera, conjunctiva Chest: Unremarkable Heart: Unremarkable Abdomen: Soft, no tenderness Lower extremities: No edema Relevant Lab Results No results found for: NA , K , CL , CO2 , BUN , CREATININE , GLUCOSE , CALCIUM , ANIONGAP , EGFR , BCR Relevant Imaging Results No image results found. Assessment/Plan Naomi Forrester is a 73 y.o. male who was in his usual state of health until 2 days ago when he started having lower abdominal pain and noted to have dark urine. Ultrasound of right upper quadrant revealed cholelithiasis with a prominent common bile duct but no choledocholithiasis. Labs revealed elevated liver function test including hyperbilirubinemia. The patient denies any significant weight loss.. He has no history of smoking cigarettes. He drinks alcohol socially. The patient denies any abdominal pain. There is no history of pleuritis. Plan for endoscopic ultrasound to assess the finding of biliary obstruction with possible ERCP for common bile duct stone removal +/- stent placement. Normal [facility] POCT GLUCOSE METER UNSOLICIT ED RESULTSon 08-01-2024 Glucose [Mass/Vol] 91 mg/dL Normal 70-105 [facility] Comment on above: Order Comment: Waive d Testing in the ED is performed under the ED CLIA certificate #[id number]. Result Comment: dhol as Performed By: #### L [id number] #### [facility] ([facility]) [address] [place] [address] ALL AMMONIAon 07-31-2024 Ammonia (P) [Mass/Vol] ug/dL Low 11 - 32 umol/L [facility] Interpretation and review of laboratory results Abnormal [facility] ALL CBC WITH AUTO DIFFon BASOPHILS ABSOLUTE AUTO 0 [facility] Basophils/100 WBC (Bld) 0.8 % 0.2 - 2.0 % [facility] Eosinophils/100 WBC (Bld) 2.7 % 0.9 - 7.0 % [facility] Erythrocyte distribution width (RBC) [Ratio] 13.7 % 11.0 - 15.0 % [facility] Hematocrit (Bld) [Volume fraction] 45.4 % 42.0 - 54.0 % [facility] Hemoglobin (Bld) [Mass/Vol] 15.6 g/dL 14.0 - 18.0 g/dL [facility] IMMATURE GRANULOCYTES ABS AUTO 0.01 [facility] Immature granulocytes/100 WBC (Bld) 0.2 % 0.0 - 0.5 % [facility] LYMPHOCYTES ABSOLUTE AUTO 1.2 [facility] Lymphocytes/100 WBC (Bld) 23.9 % 20.5 - 60.0 % [facility] MCH (RBC) [Entitic mass] 30.6 pg 25.9 - 34.0 pg [facility] MCHC (RBC) [Mass/Vol] 34.4 g/dL 29.9 - 35.2 g/dL [facility] MCV (RBC) [Entitic vol] 89.2 fL 80.0 - 94.0 fL [facility] MONOCYTES ABSOLUTE AUTO 0.4 [facility] Monocytes/100 WBC (Bld) 8.6 % 1.7 - 12.0 % [facility] NEUTROPHILS ABSOLUTE AUTO 3.1 [facility] Neutrophils/100 WBC (Bld) 63.8 % 43.0 - 75.0 % [facility] Platelet mean volume (Bld) [Entitic vol] 10.1 fL 9.5 - 13.5 fL [facility] EO # 0.1 [facility] PLT 246 [facility] RBC 5.09 [facility] WBC 4.9 [facility] CCF APTTon 07-31-2024 aPTT Coag (Bld) [Time] 25.6 s [facility] URINALYSIS, WITH MICROS COPICon 07-31-2024 BACTERIA URINE TRACE Abnormal NONE SEEN #/HPF [facility] BILIRUBIN URINE MODERATE Abnormal NEGATIVE [facility] BLOOD URINE Negative NEGATIVE [facility] CAST SEEN? NONE SEEN NONE SEEN #/LPF [facility] Clarity (U) CLEAR CLEAR [facility] Color (U) DK. ORANGE YELLOW [facility] CRYSTALS SEEN? Seen Abnormal None Seen #/HPF [facility] GLUCOSE URINE UA Negative NEGATIVE mg/dL [facility] Interpretation and review of laboratory results Abnormal [facility] Ketones Ql (U) Negative NEGATIVE mg/dL [facility] Leukocyte esterase Test strip Ql (U) Negative NEGATIVE [facility] MUCUS URINE TRACE Abnormal NONE SEEN [facility] NITRITE URINE Negative NEGATIVE [facility] pH (U) 6.0 [pH] 5.0 - 9.0 [facility] PROTEIN URINE Negative NEG/TRACE mg/dL [facility] SPECIFIC GRAVITY URINE 1.025 1.005 - 1.025 [facility] SQUAMOUS EPITHELIAL CELL URINE RARE NONE/RARE #/LPF [facility] CALCIUM OXALATE CRYSTALS URINE RARE [facility] RBC 0-2 [facility] WBC 0-2 Abnormal NONE SEEN #/HPF [facility] URINE CULTURE INDICATED NO [facility] UROBILINOGEN URINE 2.0 EU/dL Abnormal 0.2 - 1.0 EU/dL [facility] 07-31 [facility] SRM[facility]H PROTHROMBIN TIME INR W/O COUMon 07-31-2024 PT Coag (PPP) [Time] 10.8 s [facility] INR 1.02 [facility] Comment on above: DESIRED INR: 2.0-3.0 CONDITIONS NOT LISTED BELOW 2.5-3.5 FOR PROSTHETIC HEART VALVE REPLACEMENT 2.5-3.5 RECURRENT THROMBOSIS US Abdomenon 07-31-[address] [address] Ultrasound Report Signed Patient: NAOMI FORRESTER MR#: [id number] : 1950 Acct:[id number] Age/Sex: 73 / M ADM Date: 07/31/24 Loc: LAB Attending Dr: Inez López M.D. Ordering Physician: Inez López M.D. Date of Service: 07/31/24 Procedure(s): US abdomen complete Accession Number(s): [id number] cc: CAROLYN BYRNES ; Inez López M.D. [address] [address] Patient Name: NAOMI FORRESTER MRN: [id number] date: 1950 Sex: M Assigned Patient Location: LAB Current Patient Location: LAB Accession/Order Number: [id number] Exam Date: 07/31/2024 14:08 Report Date: 07/31/2024 14:19 At the request of: INEZ LÓPEZ MD Procedure: US abdomen complete COMPLETE ABDOMINAL ULTRASOUND HISTORY: Jaundice. Mid back pain for one day. Dark urine. FINDINGS: LIVER: Unremarkable GALLBLADDER: There is shadowing echogenic material identified within the gallbladder lumen consistent with multiple gallstones/gallbladder sludge. Difficult to assess the thickness of the gallbladder wall secondary to intraluminal debris defect. Negative ultrasound Briones's sign. BILE DUCTS: 8 mm prominence of common bile duct. PANCREAS: The liver assessment of pancreas secondary to overlying bowel gas. RIGHT KIDNEY: 11.4 cm. It contains anechoic cyst measuring up to 5.3 cm. Mild right pelviectasis. LEFT KIDNEY: 12.2 cm. 2 anechoic benign cyst measuring up to 5.4 cm. No hydronephrosis identified. No renal calculus seen. No perirenal abnormality seen. No splenic mass or enlargement seen. Assessment of spleen limited with ultrasound. The upper portions of the IVC and abdominal aorta unremarkable. No free intraperitoneal fluid seen. US/US abdomen complete IMPRESSION: Cholelithiasis. Indeterminate thickness of the bladder wall. 8mm prominence of common bile duct. Ductal stone not seen with ultrasound. Obstructing ductal stone not excluded. Consider follow-up assessment with contrasted MRI of the abdomen with MRCP. Alternatively imaging may include contrasted CT of the abdomen and pelvis. Limited assessment of the pancreas. Benign anechoic renal cysts. Mild right pelviectasis. Impression dictated by: Casimiro Gonzáles M.D.07/31/2024 2:19 PM Dictation Location: [place] [address] Electronically authenticated by: [id number] Y Date: 07/31/2024 14:19 Dictated By: Casimiro Gonzáles D.O. Signed By: 07/31/24 1422 DD/ 1419 TD/TT: Legal Financial Specialist: [facility] Radiology, Radiologi MD jaylin - 08/01/2024 [place] [address] Ultrasound Report Signed Patient: NAOMI FORRESTER MR#: [id number] : 1950 Acct:[id number] Age/Sex: 73 / M ADM Date: 07/31/24 Loc: LAB Attending Dr: Inez López M.D. Ordering Physician: Inez López M.D. Date of Service: 07/31/24 Procedure(s): US abdomen complete Accession Number(s): [id number] cc: CAROLYN BYRNES ; Inez López M.D. The [place] [id number] Patient Name: NAOMI FORRESTER MRN: [facility]:[id number] date: 1950 Sex: M Assigned Patient Location: LAB Current Patient Location: LAB Accession/Order Number: [id number] Exam Date: 07/31/2024 14:08 Report Date: 07/31/2024 14:19 At the request of: INEZ LÓPEZ MD Procedure: US abdomen complete COMPLETE ABDOMINAL ULTRASOUND HISTORY: Jaundice. Mid back pain for one day. Dark urine. FINDINGS: LIVER: Unremarkable GALLBLADDER: There is shadowing echogenic material identified within the gallbladder lumen consistent with multiple gallstones/gallbladder sludge. Difficult to assess the thickness of the gallbladder wall secondary to intraluminal debris defect. Negative ultrasound Briones's sign. BILE DUCTS: 8 mm prominence of common bile duct. PANCREAS: The liver assessment of pancreas secondary to overlying bowel gas. RIGHT KIDNEY: 11.4 cm. It contains anechoic cyst measuring up to 5.3 cm. Mild right pelviectasis. LEFT KIDNEY: 12.2 cm. 2 anechoic benign cyst measuring up to 5.4 cm. No hydronephrosis identified. No renal calculus seen. No perirenal abnormality seen. No splenic mass or enlargement seen. Assessment of spleen limited with ultrasound. The upper portions of the IVC and abdominal aorta unremarkable. No free intraperitoneal fluid seen. US/US abdomen complete IMPRESSION: Cholelithiasis. Indeterminate thickness of the bladder wall. 8mm prominence of common bile duct. Ductal stone not seen with ultrasound. Obstructing ductal stone not excluded. Consider follow-up assessment with contrasted MRI of the abdomen with MRCP. Alternatively imaging may include contrasted CT of the abdomen and pelvis. Limited assessment of the pancreas. Benign anechoic renal cysts. Mild right pelviectasis. Impression dictated by: Csaimiro Gonzáles M.D.07/31/2024 2:19 PM Dictation Location: [place] [address] Electronically authenticated by: [id number] Y Date: 07/31/2024 14:19 Dictated By: Casimiro Gonzáles D.O. Signed By: 07/31/24 1422 DD/ 1419 TD/TT: Legal Financial Specialist: [facility] Radiology Study observation (narrative) [facility] US AbdomenOrdered By: Radiol ogist Radiology on 07-31-20[address] [facility] Work Phone: No Panel Informationon 02-10 [facility] Complete Blood Count with Au to Diffon 09-26-2021 Basophils (Bld) [#/Vol] 0.07 10*3/uL Normal 0.00-0.20 [facility] [employer] Comment on above: Performed By: #### C MP, LIPD, CBCAD #### [facility] [address] [place], [place] [id number] Basophils/100 WBC (Bld) 1.2 % Normal [facility] [employer] Comment on above: Performed By: #### C MP, LIPD, CBCAD #### [facility] [address] [place], [place] [id number] Eosinophils (Bld) [#/Vol] 0.24 10*3/uL Normal 0.02-0.50 [facility] Specialist Comment on above: Performed By: #### C MP, LIPD, CBCAD #### [facility] [address] [place], [place] [id number] Eosinophils/100 WBC (Bld) 4.0 % Normal [facility] Specialist Comment on above: Performed By: #### C MP, LIPD, CBCAD #### [facility] [address] [place], [place] [id number] Erythrocyte distribution width (RBC) [Ratio] 13.9 % Normal 11.0-15.0 [facility] Specialist Comment on above: Performed By: #### C MP, LIPD, CBCAD #### [facility] [address] [place], [place] [id number] Hematocrit (Bld) [Volume fraction] 46.0 % Normal 38.5-50.0 [facility] Specialist Comment on above: Performed By: #### C MP, LIPD, CBCAD #### [facility] [address] [place], [place] [id number] Hemoglobin (Bld) [Mass/Vol] 15.1 g/dL Normal 13.0-17.1 [facility] Specialist Comment on above: Performed By: #### C MP, LIPD, CBCAD #### [facility] [address] [place], [place] [id number] Lymphocytes (Bld) [#/Vol] 2.1 10*3/uL Normal 0.9-3.9 [facility] Specialist Comment on above: Performed By: #### C MP, LIPD, CBCAD #### [facility] [address] [place], [place] [id number] Lymphocytes/100 WBC (Bld) 34.8 % Normal [facility] Specialist Comment on above: Performed By: #### C MP, LIPD, CBCAD #### [facility] [address] [place], [place] [id number] MCH (RBC) [Entitic mass] 30.1 pg Normal 27.0-33.0 [facility] [employer] Comment on above: Performed By: #### C MP, LIPD, CBCAD #### [facility] [address] [place], [place] [id number] MCHC (RBC) [Mass/Vol] 32.8 g/dL Normal 32.0-36.0 [facility] Specialist Comment on above: Performed By: #### C MP, LIPD, CBCAD #### [facility] [address] [place], [place] [id number] MCV (RBC) [Entitic vol] 92 fL Normal 80-100 [facility] [employer] Comment on above: Performed By: #### C MP, LIPD, CBCAD #### [facility] [address] [place], [place] [id number] Monocytes (Bld) [#/Vol] 0.6 10*3/uL Normal 0.2-0.9 [facility] Specialist Comment on above: Performed By: #### C MP, LIPD, CBCAD #### [facility] [address] [place], [place] [id number] Monocytes/100 WBC (Bld) 9.4 % Normal [facility] [employer] Comment on above: Performed By: #### C MP, LIPD, CBCAD #### [facility] [address] [place], [place] [id number] Neutrophils (Bld) [#/Vol] 3.0 10*3/uL Normal 1.5-7.8 [facility] [employer] Comment on above: Performed By: #### C MP, LIPD, CBCAD #### [facility] [address] [place], [place] [id number] Neutrophils/100 WBC (Bld) 50.3 % Normal [facility] Specialist Comment on above: Performed By: #### C MP, LIPD, CBCAD #### [facility] [address] [place], [place] [id number] Platelet mean volume (Bld) [Entitic vol] 11.00 fL Normal 7.50-12.50 [facility] [employer] Comment on above: Performed By: #### C MP, LIPD, CBCAD #### [facility] [address] [place], [place] [id number] Platelets (Bld) [#/Vol] 246 10*3/uL Normal 140-400 [facility] Specialist Comment on above: Performed By: #### C CHANA AN, CBCAD #### [facility] [address] [place], [place] [id number] RBC (Bld) [#/Vol] 5.02 10*6/uL Normal 4.20-5.80 [facility] Comment on above: Performed By: #### C NATALIYA LIPD, CBCAD #### [facility] [address] [place], [place] [id number] RDW-SD 47.2 fL Normal 37.0-50.0 [facility] Specialist Comment on above: Performed By: #### C DESTINY AND, CBCAD #### [facility] [address] [place], [place] [id number] WBC (Bld) [#/Vol] 6.0 10*3/uL Normal 3.8-11.0 [facility] Specialist Comment on above: Performed By: #### C DESTINY AND, CBCAD #### [facility] [address], [place] [id number] Comprehensive Metabolic Pane [facility] 09-26-2021 Albumin [Mass/Vol] 4.3 g/dL Normal 3.6-5.1 [facility] Specialist Comment on above: Performed By: #### C NATALIYA LIPD, CBCAD #### [facility] [address], [place] [id number] Albumin/Globulin [Mass ratio] 1.4 {ratio} Normal 1.0-2.5 [facility] Specialist Comment on above: Performed By: #### C MP LIPD, CBCAD #### [facility] [address], [place] [id number] ALP [Catalytic activity/Vol] 69 U/L Normal 40-129 [facility] Specialist Comment on above: Performed By: #### C NATALIYA LIPD, CBCAD #### [facility] [address], [place] [id number] ALT [Catalytic activity/Vol] 26 U/L Normal 9-46 [facility] Specialist Comment on above: Result Comment: 12/1 /2021 Female reference range changed. Performed By: #### C MP, LIPD, CBCAD #### [facility] [address], [place] [id number] Anion gap [Moles/Vol] 16 mmol/L Normal 12-20 [facility] Comment on above: Result Comment: Effkam ctive 05/12/2019 reference range changed. Performed By: #### C MP, LIPD, CBCAD #### [facility] [address], [place] [id number] AST [Catalytic activity/Vol] 24 U/L Normal 10-40 [facility] Comment on above: Performed By: #### C MP, LIPD, CBCAD #### [facility] [address], [place] [id number] Bilirubin [Mass/Vol] 0.32 mg/dL Normal 0.30-1.20 [facility] Comment on above: Performed By: #### C MP, LIPD, CBCAD #### [facility] [address], [place] [id number] BUN/CREA 31 Ratio High 6-22 [facility] Comment on above: Performed By: #### C MP, LIPD, CBCAD #### [facility] [address], [place] [id number] Calcium [Mass/Vol] 9.6 mg/dL Normal 8.6-10.2 [facility] Comment on above: Performed By: #### C MP, LIPD, CBCAD #### [facility] [address], [place] [id number] Chloride [Moles/Vol] 105 mmol/L Normal 98-107 [facility] Comment on above: Performed By: #### C MP, LIPD, CBCAD #### [facility] [address] [facility] [place] [id number] CO2 [Moles/Vol] 24 mmol/L Normal 20-31 [facility] Comment on above: Performed By: #### C MP, LIPD, CBCAD #### [facility] [address], [place] [id number] Creatinine [Mass/Vol] 0.9 mg/dL Normal 0.7-1.4 [place] [employer] Comment on above: Performed By: #### C DESTINY AND, CBCAD #### [facility] [address], [place] [id number] eGFRAA 105 mL/min/1.73m2 Normal >60 [facility] Specialist Comment on above: Performed By: #### C NATALIYA, LIPD, CBCAD #### [facility] [address], [place] [id number] eGFRNAA 87 mL/min/1.73m2 Normal >60 [facility] Specialist Comment on above: Performed By: #### C NATALIYA LIPD, CBCAD #### [facility] [address], [place] [id number] Globulin (S) [Mass/Vol] 3.1 g/dL Normal 1.9-3.7 [facility] Specialist Comment on above: Performed By: #### C NATALIYA LIPD, CBCAD #### [facility] [address], [place] [id number] Glucose [Mass/Vol] 113 mg/dL High 65-99 [facility] [place] [employer] Comment on above: Result Comment: For FASTING Glucose --- ADA reference ranges: Normal 65-99 mg/dl Prediabetes 100-125 Diabetes >/= 126 Performed By: #### C CHANA AN, CBCAD #### [facility] [address], [place] [id number] Potassium [Moles/Vol] 4.4 mmol/L Normal 3.5-5.5 [facility] Specialist Comment on above: Performed By: #### C NATALIYA LIPD, CBCAD #### [facility] [address], [place] [id number] Protein [Mass/Vol] 7.4 g/dL Normal 6.1-8.1 [facility] [employer] Comment on above: Performed By: #### C NATALIYA LIPD, CBCAD #### [facility] [address], [place] [id number] Sodium [Moles/Vol] 141 mmol/L Normal 135-146 [facility] [place] [employer] Comment on above: Performed By: #### C NATALIYA LIPD, CBCAD #### [facility] [address], [place] [id number] Urea nitrogen [Mass/Vol] 27 mg/dL High 7-25 [facility] [employer] Comment on above: Performed By: #### C CHANA AN, CBCAD #### [facility] [address], [place] [id number] Lipid Panelon 09-26-2021 Cholesterol [Mass/Vol] 212 mg/dL High 125-200 [facility] [employer] Comment on above: Result Comment: Low risk < 200mg/dL Borderline risk 201-239 mg/dl High risk > or equal to 240 Performed By: #### C NATALIYA, LIPD, CBCAD #### [facility] [address], [place] [id number] Cholesterol in HDL [Mass/Vol] 54 mg/dL Normal >40 [facility] [employer] Comment on above: Result Comment: High Cardiovascular Risk HDL <40 mg/dL Low Cardiovascular Risk HDL > or equal to 60 mg/dl Performed By: #### C NATALIYA, LIPD, CBCAD #### [facility] [address], [place] [id number] Cholesterol in LDL [Mass/Vol] 128 mg/dL Normal [facility] Specialist Comment on above: Result Comment: LDL ATP III CLASSIFICATION LDL less than 100 mg/dl Optimal LDL 100-129 mg/dl Near or above optimal LDL 130-159 Borderline high LDL 160-189 High LDL greater than 189 mg/dl Very High Performed By: #### C NATALIYA, LIPD, CBCAD #### [facility] [address], [place] [id number] Cholesterol in VLDL [Mass/Vol] 30 mg/dL Normal [facility] Specialist Comment on above: Performed By: #### C NATALIYA, LIPD, CBCAD #### [facility] [address], [place] [id number] Cholesterol.total/C holesterol in HDL [Mass ratio] 4 {ratio} Normal [facility] Specialist Comment on above: Performed By: #### C NATALIYA, LIPD, CBCAD #### [facility] [address], [place] [id number] Triglyceride [Mass/Vol] 150 mg/dL Normal 30-150 [facility] [employer] Comment on above: Result Comment: TRIG ATPIII CLASSIFICATIONS TRIG less than 150 mg/dl Normal TRIG 150-199 mg/dl Borderline High TRIG 200-500 mg/dl High TRIG greather than 500 mg/dl Very High Performed By: #### C MP, LIPD, CBCAD #### [facility] [address], [place] [id number] Prostatic Specific Antigen, Totalon 09-26-2021 TPSA 1.920 ng/mL Normal <4.000 [facility] [employer] Comment on above: Result Comment: PSA Test Method: ECLIA/Kwan e 601 Performed By: #### P SA #### [facility] [address], [place] [id number] Encounters Encounter Date Encounter Type Care Provider Facility Start: 08-01-2024 End: 08-01-2024 ambulatory MANFRED ARCINIEGA [facility] Start: 08-01-2024 End: 08-01-2024 ambulatory INEZ LÓPEZ [facility] Start: 07-31-2024 End: 08-01-2024 Clinisync Result Encounter Generic External Data Provider [facility] Unsolicited Start: 07-31-2024 End: 08-01-2024 Clinisync Result Encounter Generic External Data Provider [facility] External Department Unsolicited Start: 03-04-2024 End: 03-04-2024 ambulatory Deborah Fontana Facility:[facility] Start: 03-04-2024 End: 03-04-2024 Patient encounter procedure Deborah X Orloida [facility] Start: 02-11-2024 End: 02-11-2024 Bamboo flowsheet Anyi Eaton MD Work Phone: [facility] Start: 02-11-2024 End: 02-11-2024 Bammary kayo flowselvi Eaton MD Work Phone: [facility] Start: 02-11-2024 End: 02-11-2024 Office outpatient visit 15 minutes Anyi Eaton MD Work Phone: [facility] Comment on above: Seborrheic keratosis (Primary Dx); Lentigines; History of basal cell carcinoma; History of SCC (squamous cell carcinoma) of skin; Actinic keratosis Start: 02-11-2024 End: 02-11-2024 ambulatory ANYI EATON Not Available Start: 08-14-2023 End: 08-14-2023 ambulatory ANYI Farmer [facility] Not Available Start: 07-17-2023 End: 07-17-2023 ambulatory CAROLYN BYRNES Not Available Start: 03-12-2023 ambulatory Deborah Addi Facility: [facility] [place] Start: 05-16-2022 End: 07-04-2022 ambulatory COURTNEY MORALES Facility: Start: 03-14-2022 End: 03-15-2022 ambulatory COURTNEY MORALES Facility:[facility] Start: 02-14-2022 End: 02-15-[address] INEZ LÓPEZ . Facility: Start: 09-20-2021 End: 09-21-[address] INEZ LÓPEZ . Facility:[facility] Start: 11-09-2006 ambulatory Cast Tech [facility] Work Phone: Orthopaedics Start: 11-09-2006 End: 11-09-2006 Patient encounter procedure [facility] Work Phone: [facility] Procedures Date Procedure Procedure Detail Performing Clinician Start: 07-31-2024 Us abdominal real ti me w/image documentation Generic External Data Provider Start: 07-31-2024 ALL AMMONIA Generic Ex ternal Data Provider Start: 07-31-2024 ALL CBC WITH AUTO DIFF Generic External Data Provider Start: 07-31-2024 [facility] APTT Generic Ex ternal Data Provider Start: 07-31-2024 SRMCOH PROTHROMBIN T INDERJIT INR W/O COUM Generic External Data Provider Start: 07-31-2024 [facility] URINALYSIS, WIT H MICROSCOPIC Generic External Data Provider Start: 02-11-2024 CRYOTHERAPY SKIN LESION Anyi Eaton MD Work Phone: Plan of Treatment Date Care Activity Detail Author Start: 09-08-2024 End: 09-08-2024 Patient encounter procedure 09/08/2024 1:05 PM EDT Office Visit [facility] [address] [place] [address] Anyi Eaton MD [address] [place] [address] [facility] Start: 08-11-2024 End: 08-11-2024 Patient encounter procedure 08/11/2024 1:00 PM EDT Office Visit [facility] [address] [place] [phone] Anyi aEton MD [address] [place] [address] [facility] Start: 02-11-2024 End: 02-11-2024 Patient encounter procedure 02/11/2024 1:00 PM EDT Office Visit [facility] [address] [place] [phone] Anyi Eaton MD [address] [place] [address] Arrived [facility] Comment on above: Arrived Start: 01-06-2024 Influenza vaccination Influenza Vacc ine (#1) [facility] Start: 05-23-2022 Screening for malign ant neoplasm of colon [facility] Start: 09-15-2021 Pneumococcal Vaccine : 65+ Years (2 of 2 - PCV) Pneumococcal Vaccine: 65+ Years (2 of 2 - PCV) [facility] Start: 01-05-2021 Influenza vaccination INFLUENZA (Sea son Ended) [facility] Start: 2017 ADVANCE DIRECTIVE DISCUSSION ADVANCE DIRECTIVE DISCUSSION [facility] Start: 2017 PNEUMOVAX AGE 65 AND OVER WITH 5YR LOOKBACK (#1) PNEUMOVAX AGE 65 AND OVER WITH 5YR LOOKBACK (#1) [facility] Start: 08-31-2007 PROSTATE CANCER SCRE ENING DISCUSSION PROSTATE CANCER SCREENING DISCUSSION [facility] Start: 2002 Screening for malign ant neoplasm of colon [facility] Start: 2002 SHINGRIX VACCINE (1 of 2) SHINGRIX V ACCINE (1 of 2) [facility] Start: 1997 DIABETES SCREEN DIABETES SCREEN [facility] Start: 08-31-1987 LIPID SCREEN LIPID SCREEN [facility] Start: 08-31-1971 Urine microalbumin profile DTAP,TDAP,TD (1 - Tdap) [facility] Start: 1970 HEPATITIS C SCREENING HEPATITIS C SC REENING [facility] Start: 1964 Adult depression screening assessment DEPRESSION SCREENING [facility] Start: 1964 COVID-19 VACCINE (1) COVID-19 VACCIN E (1) [facility] Start: 1950 Medicare Annual Well ness (AWV) Medicare Annual Wellness (AWV) [facility] Start: 1950 Screening for malign ant neoplasm of colon [facility] Immunizations Immunization Date Immunization Notes Care Provider Fa olu 09-15-2020 pneumococcal polysaccharide vaccine, 23 valent Anyi Eaton MD Work Phone: [facility] Payers Date Payer Category Payer Medicare [employer] MEDICARE REPLACEMENT [id number] 2022-Present [address] [address] [place] [address] [id number] 2022 Medicare (Managed Care) [facility] MEDICARE [id number] 2022 Private Health Insurance [id number] 2006 Unknown [employer]M BLUE CARD PPO [id number] 2006-2008 PPO [id number] 1959 Medicare [id number] 1959 Private Health Insurance [facility] RZYWJ [id number] 1959 Self-pay [id number] 1950 Unknown [id number] 1952 Unknown [id number] 1952 Unknown [id number] 1952 Unknown [id number] 1952 Unknown [id number] 1952 Unknown [id number] Unknown Self Pay [id number] Unknown [id number] Unknown [id number] Social History Date Type Detail Facility Tobacco smoking stat [facility] Unknown if ever smoked [facility] Start: 1950 Sex Assigned At Male F [facility] Start: 1950 Sex Assigned At Not on file [facility] Start: 09-07-2022 [facility] Start: 09-07-2022 Tobacco use and exposure Smokeless tobacco non-user [facility] Start: 08-14-2023 End: 02-11-2024 Alcoholic beverage intake Current drinker of alcohol (finding) [facility] Start: 08-14-2023 End: 11-26-2023 Alcoholic beverage intake [facility] Start: 08-14-2023 End: 11-26-2023 Tobacco use panel [facility] Start: 09-07-2022 Alcohol Comment coffee and sod a 2-3 cups per day [facility] Tobacco smoking status No Smokin g Status Entered [facility] [place] Goals Date Patient Goal Desired Activity /State Clinical Notes 11-09-2006 to 08-02-2024 Anyi Eaton MD - 02/11/2024 1:00 PM EDT11/09/2006 5:39 PM EDT Note Date & Type Note Facility 08-02-2024 Note Patient: Naomi anthony Procedure Summary Date: 08/01/24 Room / Location: [facility] Anesthesia Start: 1238 Anesthesia Stop: 1357 Procedures: ENDOSCOPIC RETROGRADE CHOLANGIOPANCREATOGRAPHY ENDOSCOPIC ULTRASOUND (UPPER) Diagnosis: Jaundice Scheduled Providers: Neil Rouse MD; BRITTA Jane; Manfred Arciniega MD Responsible Provider: Neil Rouse MD Anesthesia Type: general ASA Status: 2 Anesthesia Type: general Vitals Value Taken Time BP 171/86 08/01/24 1430 Temp 36.3 ???C (97.3 ???F) 08/01/24 1430 Pulse 65 08/01/24 1430 Resp 18 08/01/24 1430 SpO2 98 % 08/01/24 1430 Anesthesia Post Evaluation Patient location during evaluation: PACU Patient participation: complete - patient participated Level of consciousness: awake Pain management: adequate Cardiovascular status: acceptable Respiratory status: acceptable Hydration status: acceptable Comments: Patient was evaluated for PACU discharge prior to leaving. Note was inputted later. Patient is hemodynamically stable and is able to be discharged from PACU per anesthesia protocol. No notable events documented. [facility] 08-01-2024 Note Patient: Naomi anthony Procedure Information Anesthesia Start Date/Time: 08/01/24 1238 Scheduled providers: Neil Rouse MD; BRITTA Jane; Manfred Arciniega MD Procedures: ENDOSCOPIC RETROGRADE CHOLANGIOPANCREATOGRAPHY ENDOSCOPIC ULTRASOUND (UPPER) Location: [facility] Relevant Problems Anesthesia (-) History of anesthesia complications Past Medical History: Diagnosis Date Asthma GERD (gastroesophageal reflux disease) Past Surgical History: Procedure Laterality Date KNEE ARTHROSCOPY W/ ARTHROTOMY Bilateral PLANTAR FASCIA RELEASE Left Social History Tobacco Use Smoking status: Never Smokeless tobacco: Never Vaping Use Vaping status: Never Used Substance Use Topics Alcohol use: Yes Alcohol/week: 3.0 standard drinks of alcohol Types: 3 Standard drinks or equivalent per week Comment: weekly Drug use: Never Labs No results found for: WBC , HGB , HCT , PLT No results found for: NA , K , CO2 , CL , BUN , CREATININE , GLUCOSE , CALCIUM No results found for: PT , INR , PTT No echocardiogram results found for the past 12 months Clinical information reviewed: Tobacco Allergies Meds Med Hx Surg Hx Fam Hx Soc Hx Physical Exam Airway Mallampati: III TM distance: >3 FB Neck ROM: full Cardiovascular Rhythm: regular Rate: normal Dental Pulmonary Breath sounds clear to auscultation Abdominal Anesthesia Plan ASA 2 general (Patient chart (PMH/PSH/Social/Meds/Allergies/etc) was reviewed prior to patient interview. Specifically discussed the risks of oral/airway instrumentation (if needed) including (but not limited to) lip, gum, and teeth trauma. This has the potential to cause significant dental damage including tooth loss. Patient expressed understanding and wished to proceed. Patient was interviewed and evaluated prior to the start of the anesthetic. Note was inputted later. ) intravenous induction Anesthetic plan and risks discussed with patient. Plan discussed with CAA. Additional Equipment Requests [facility] 08-01-2024 Note Airway Date/Time: 08/01/2024 12:48 PM Urgency: elective Airway not difficult General Information and Staff Patient location during procedure: OR Anesthesiologist: Neil Rouse MD Resident/INSIDE SALES ACCOUNT REPRESENTATIVE/CAA: BRITTA Mo Performed: resident/INSIDE SALES ACCOUNT REPRESENTATIVE/BRITTA Indications and Patient Condition Indications for airway management: anesthesia Spontaneous Ventilation: absent Sedation level: deep Preoxygenated: yes Mask difficulty assessment: 1 - vent by mask Final Airway Details Final airway type: endotracheal airway Successful airway: ETT Cuffed: yes Successful intubation technique: video laryngoscopy Facilitating devices/methods: intubating stylet Endotracheal tube insertion site: oral Blade: Rodriguez Blade size: #4 ETT size (mm): 7.5 Cormack-Lehane Classification: grade I - full view of glottis Placement verified by: chest auscultation and capnometry Measured from: lips ETT to lips (cm): 23 Number of attempts at approach: 1 Number of other approaches attempted: 0 Additional Comments 4cc of 4% Lidocaine administered via LTA [facility] 02-11-2024 History of Present illness Narrative Skin Check Location: Patient requests [...] Ear, Right Forehead, Right Parotid Area, Right Nondenominational (2), Right Zygomatic Area (3) Erythematous scaly [...] limited to risks of scarring, darker or public information officer pigmentary changes, recurrence, incomplete removal and infection. [...] Ear, Right Forehead, Right Parotid Area, Right Nondenominational (2), Right Zygomatic Area (3) Next Visit: 6 months skin exam documented in this encounter [facility] 03-15-2022 Note PROCEDURE: XR ANKLE LT MIN [...] ESPITIA Date: 2022-03-15 08:54 [facility] 11-09-2006 History of Present illness Narrative PT ASSESSMENT - CASTING ROOM Naomi presents for cast removal and Application of Brace. Applied night splint and pneumatic aircast walker to left foot Patient has been instructed in Care and proper application of brace.. Darian Vergara Cast Beeper: [id number] documented in this encounter [facility] Evaluation + Plan note No data available for this section [facility] Evaluation note Diagnosis Plantar fascial fibromatosis- Primary [facility] Seborrheic keratosis- Primary Lentigines History of basal cell carcinoma Personal history of other malignant neoplasm of skin History of SCC (squamous cell carcinoma) of skin Personal history of other malignant neoplasm of skin Actinic keratosis [facility] No data available for this section [facility] progress note No data available for this section [facility] Assessments No Assessments Information Available Summary Purpose Family History No Family History Records FoundNo Family History Records FoundNo Family History Records Found No data available for this section No Family History Records FoundNo Family History [...] or prosecute any alcohol or drug abuse patient.[facility] (unrecognized sect ion and content) No Status Records FoundNo Status Records FoundNo Status Records FoundNo Status Records FoundNo Status Records Found INFORMATION SOURCE (unrecogn ized section and content) DATE CREATED AUTHOR 09/27/2021 [facility] dical Specialist DATE CREATED AUTHOR AUTHOR'S ORGANIZ ATION 09/06/2022 [facility] DATE CREATED AUTHOR AUTHOR'S ORGANIZ ATION 02/12/2024 [facility] dical Specialists EPIC DATE CREATED AUTHOR AUTHOR'S ORGANIZ ATION 03/06/2024 [facility] DATE CREATED AUTHOR AUTHOR'S ORGANIZ ATION 08/09/2024 [facility] Care Teams (unrecognized sec tion and content) Supplier Specialist Relationship Specialty Start Date End Date Carolyn Byrnes MD [address] [place] [address] PCP - General Internal Medicine 11/22/22 Anyi Eaton MD [address] [place] [address] Referring Physician Dermatology 11/17/22 Supplier Specialist Relationship Specialty Start Date End Date Carolyn Byrnes MD [address] [place] [address] PCP - General Internal Medicine 11/22/22 Anyi Eaton MD [address] [place] [address] Referring Physician Dermatology 11/17/22 Supplier Specialist Relationship Specialty Start Date End Date Carolyn Byrnes MD [address] [place] [address] PCP - General Internal Medicine 11/22/22 Anyi Eaton MD [address] [place] [address] Referring Physician Dermatology 11/17/22 Supplier Specialist Relationship Specialty Start Date End Date Carolyn Byrnes MD [address] [place] [address] PCP - General Internal Medicine 11/22/22 Anyi Eaton MD [address] [place] [address] Referring Physician Dermatology 11/17/22 Reason for Visit [...] BE BASED ON THE PRIMARY CLINICAL RECORDS. [employer] provides no warranty or guarantee of the accuracy or completeness of information in this document.
--- NOTE | 2024-08-15 08:28 | ECG_ITS ---
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 Measurements Intervals [place] Rate: 68 P: 32 LA: 152 QRS: 22 QRSD: 84 T: 25 QT: 390 QTc: 407 Interpretive Statements 1100 Sinus rhythm 8102 Low QRS voltage in chest leads Abnormal ECG Compared to ECG 06/16/2019 13:07:18 Low QRS voltage now present Electronically Signed On 08-16-2024 10:28:00 EDT by SEGUNDO GLEZ M.D.
--- NOTE | 2024-08-15 08:30 | ED.GENADUL1 ---
HPI HPI - General Adult General Chief complaint: Abdominal Pain Stated complaint: R SIDE ABD PAIN POST STENT THAT WAS PLACED Time Seen by Provider: 08/15/24 08:12 Source: patient Mode of arrival: walk-in History of Present Illness HPI narrative: 73-year-old male presents for right upper quadrant abdominal pain. In July he had a biliary stent placed because of biliary obstruction secondary to a stone. Over the past 5 days he has had increasing pain in his right upper quadrant. He contacted his surgeon who recommended a CAT scan and some blood work. He had been taking Percocet but it was not helping and the pain is severe and continuous. He is not currently nauseous. No fever. In July prior to the stent placement he was jaundiced and is no longer jaundiced. Related Data Home Medications ?Medication ?Instructions ?Recorded ?Confirmed fluticasone propionate 50 1 spray intranasal DAILY 08/15/24 08/15/24 mcg/actuation nasal spray,suspension Allergies Allergy/AdvReac Type Severity Reaction Status Date / Time No Known Drug Allergies Allergy Verified 08/15/24 08:39 Opioid HPI Opioid Management Most Recent Opioid Data: Last ED Pain Assessment 08/15/24 09:30 Review of Systems ROS Narrative A ten point review of systems is negative except as noted above. PFSH PFSH Social History Little interest or pleasure in doing things: not at all Feeling down, depressed, or hopeless: not at all Exam Narrative Exam Narrative: Nurses note and vital signs reviewed and patient is not hypoxic. General: The patient appears uncomfortable. Skin: Warm, dry, no pallor noted. There is no rash noted. He is not jaundiced Head: Normocephalic, atraumatic Eye: Normal conjunctiva, no drainage, no scleral icterus Ears, Nose, Mouth, and Throat: oral mucosa is moist. Nares patent. Cardiovascular: Regular Rate and Rhythm Respiratory: Patient is in no distress, no accessory muscle use, lungs are clear to auscultation, no wheezing, rales or rhonchi Back: non-tender GI: Tenderness present in the right upper quadrant only Musculoskeletal: The patient has no evidence of calf tenderness, no pitting edema, symmetrical pulses noted bilaterally Neurological: A&O, normal speech Psychiatric: Cooperative Constitutional Vital Signs, click to edit/add: Last Vital Signs Temp 98.1 F 08/15/24 08:15 Pulse 62 08/15/24 10:01 Resp 20 08/15/24 10:01 BP 165/81 H 08/15/24 10:01 Pulse Ox 98 08/15/24 10:01 O2 Del Method Room Air 08/15/24 10:01 Course Vital Signs Vital signs: Vital Signs Temperature 98.1 F 08/15/24 08:15 Pulse Rate 74 08/15/24 08:15 Respiratory Rate 20 08/15/24 08:15 Blood Pressure 156/77 H 08/15/24 08:15 Pulse Oximetry 96 08/15/24 08:15 Oxygen Delivery Method Room Air 08/15/24 08:15 Temperature 98.1 F 08/15/24 08:15 Pulse Rate 62 08/15/24 10:01 Respiratory Rate 20 08/15/24 10:01 Blood Pressure 165/81 H 08/15/24 10:01 Pulse Oximetry 98 08/15/24 10:01 Oxygen Delivery Method Room Air 08/15/24 10:01 Medical Decision Making MDM Narrative Medical decision making narrative: CT scan shows appropriate stent placement and some pericholecystic fat stranding. He was given IV Zosyn and I spoke to his quality assurance assistant at [facility], Dr. Ayala. He is requesting the patient be transferred to [facility] for cholecystectomy and this is being arranged. Findings are discussed with the patient and his . He is in agreement with transfer and is stable for transfer. Differential Diagnosis Differential Diagnosis: Acute cholecystitis, pancreatitis, hepatitis, colitis Lab Data Lab results reviewed: Yes I reviewed the patient's lab results Labs: Lab Results 08/15/24 08/15/24 Range/Units 08: 08:30 WBC 13.2 H (4.0-11.0) 10^3/uL RBC 3.90 L (4.70-6.10) 10^6/uL Hgb 12.0 L (14.0-18.0) g/dL Hct 36.2 L (42.0-54.0) % MCV 92.8 (80.0-94.0) fL MCH 30.8 (25.9-34.0) pg MCHC 33.1 (29.9-35.2) g/dL RDW 14.6 (11.0-15.0) % Plt Count 305 (150-450) 10^3/uL MPV 10.4 (9.5-13.5) fL Neut % (Auto) 78.5 H (43.0-75.0) % Lymph % (Auto) 10.2 L (20.5-60.0) % [place] % (Auto) 8.9 (1.7-12.0) % Eos % (Auto) 1.7 (0.9-7.0) % Baso % (Auto) 0.3 (0.2-2.0) % Neut # (Auto) 10.4 H (1.4-6.5) 10^3/uL Lymph # (Auto) 1.3 (1.2-3.8) 10^3/uL [place] # (Auto) 1.2 H (0.3-0.8) 10^3/uL Eos # (Auto) 0.2 (0.0-0.7) 10^3/uL Baso # (Auto) 0.0 (0.0-0.1) 10^3/uL Abs Immat Gran (auto) 0.05 H (0.00-0.03) 10^3/uL Imm/Tot Granulo (auto) 0.4 (0.0-0.5) % Sodium 134 L (136-145) mmol/L Potassium 3.9 (3.5-5.1) mmol/L Chloride 101 (98-107) mmol/L Carbon Dioxide 28.4 (21.0-32.0) mmol/L Anion Gap 8.5 BUN 17.0 (7.0-18.0) mg/dL Creatinine 1.07 (0.70-1.30) mg/dL Est GFR ( Amer) >60 (>=60 mL/min/1.73m^2) Est GFR (Non-Af Amer) >60 (>=60 mL/min/1.73m^2) BUN/Creatinine Ratio 15.9 Glucose 122 H (74-106) mg/dL Calcium 8.9 (8.5-10.1) mg/dL Total Bilirubin 0.9 (0.2-1.0) mg/dL Direct Bilirubin 0.3 H (0.0-0.2) mg/dL AST 26 (15-37) U/L ALT 32 (16-63) U/L Alkaline Phosphatase 89 (46-116) U/L Total Protein 7.2 (6.4-8.2) g/dL Albumin 3.0 L (3.4-5.0) g/dL Globulin 4.2 g/dL Albumin/Globulin Ratio 0.7 Amylase 24 L (25-115) U/L Lipase 13.0 L (16.0-77.0) U/L Urine Color Yellow (YELLOW) Urine Clarity Clear (CLEAR) Urine pH 6.0 (5.0-9.0) Ur Specific [place] 1.025 (1.005-1.025) Urine Protein 30 A (NEG/TRACE) mg/dL Urine Glucose (UA) Negative (NEGATIVE) mg/dL Urine Ketones 15 A (NEGATIVE) mg/dL Urine Occult Blood Small A (NEGATIVE) Urine Nitrite Negative (NEGATIVE) Urine Bilirubin Negative (NEGATIVE) Urine Urobilinogen 0.2 (0.2-1.0) EU/dL Ur Leukocyte Esterase Negative (NEGATIVE) Urine RBC 2-5 A (0-2) #/HPF Urine WBC 0-2 A (NONE SEEN) #/HPF Ur Squamous Epith Cells Rare (NONE/RARE) #/LPF Urine Crystals None seen (None Seen) #/HPF Urine Bacteria Small A (NONE SEEN) #/HPF Urine Casts None seen (NONE SEEN) #/LPF Urine Mucus Moderate A (NONE SEEN) Ur Culture Indicated? [place] [place] scan - abdomen: Radiologist's impression: Pericholecystic fat stranding Discharge Plan Discharge Chief Complaint: Abdominal Pain Clinical Impression: Abdominal pain Patient Disposition: [facility] Time of Disposition Decision: 10:47 Discharge Location: [facility] Condition: Fair Mode of Transportation: EMS
[2024-08-15 08:32] VITALS: O2SAT 95
[2024-08-15] MEDS: 0.9 % SODIUM CHLORIDE 1,000 ML 200 ML IV (08:39)
[2024-08-15 08:40] VITALS: O2SAT 98
[2024-08-15 08:41] LABS: Bilirubin Urine NEGATIVE (NEGATIVE); Blood Urine SMALL (NEGATIVE); Clarity Urine CLEAR (CLEAR); Color Urine YELLOW (YELLOW); Glucose Urine UA NEGATIVE (NEGATIVE); Ketones Urine 15 mg/dL (NEGATIVE); Leukocyte Esterase Urine NEGATIVE (NEGATIVE); Nitrite Urine NEGATIVE (NEGATIVE); Protein Urine 30 mg/dL (NEG/TRACE); Specific Gravity Urine 1.025 (1.005-1.025); Urobilinogen Urine 0.2 EU/dL (0.2-1.0)
[2024-08-15 08:41] LABS: Basophils Percent Auto 0.3 % (0.2-2.0); Eosinophils Absolute Auto 0.2 10^3/uL (0.0-0.7); Eosinophils Percent Auto 1.7 % (0.9-7.0); Hematocrit 36.2 % (42.0-54.0); Immature Granulocytes Abs Auto 0.05 10^3/uL (0.00-0.03); Immature Granulocytes Pct Auto 0.4 % (0.0-0.5); Lymphocytes Absolute Auto 1.3 10^3/uL (1.2-3.8); Lymphocytes Percent Auto 10.2 % (20.5-60.0); Mean Corpuscular HGB Conc 33.1 g/dL (29.9-35.2); Mean Corpuscular Hemoglobin 30.8 pg (25.9-34.0); Mean Corpuscular Volume 92.8 fL (80.0-94.0); Mean Platelet Volume 10.4 fL (9.5-13.5); Monocytes Absolute Auto 1.2 10^3/uL (0.3-0.8); Monocytes Percent Auto 8.9 % (1.7-12.0); Neutrophils Absolute Auto 10.4 10^3/uL (1.4-6.5); Neutrophils Percent Auto 78.5 % (43.0-75.0); Platelet Count 305 10^3/uL (150-450); Red Cell Distribution Width 14.6 % (11.0-15.0); White Blood Count 13.2 10^3/uL (4.0-11.0)
[2024-08-15] MEDS: MORPHINE SULFATE 4 MG/ML VIAL IV ×2 (08:42→10:18)
[2024-08-15 08:49] LABS: Bacteria Urine SMALL #/HPF (NONE SEEN); Cast Seen? NONE SEEN #/LPF (NONE SEEN); Crystals Seen? None Seen #/HPF (None Seen); Mucus Urine MODERATE (NONE SEEN); Squamous Epithelial Cell Urine RARE #/LPF (NONE/RARE); WBC Urine 0-2 #/HPF (NONE SEEN)
[2024-08-15 08:49] LABS: Anion Gap 8.5; BUN Creatinine Ratio 15.9; Calcium 8.9 mg/dL (8.5-10.1); Carbon Dioxide 28.4 mmol/L (21.0-32.0); Chloride 101 mmol/L (98-107); Estimated GFR (African America >60 (>=60 mL/min/1.73m^2); Estimated GFR (Non-African Ame >60 (>=60 mL/min/1.73m^2); Glucose 122 mg/dL (74-106); Potassium 3.9 mmol/L (3.5-5.1); Sodium 134 mmol/L (136-145)
[2024-08-15 08:50] VITALS: BP 150/84; O2SAT 96
[2024-08-15 08:50] LABS: Urine Culture Indicated YES-FRMC
[2024-08-15 08:51] LABS: Amylase 24 U/L (25-115)
[2024-08-15 09:25] LABS: Alanine Aminotransferase 32 U/L (16-63); Albumin Globulin Ratio 0.7; Alkaline Phosphatase 89 U/L (46-116); Aspartate Amino Transferase 26 U/L (15-37); Bilirubin Direct 0.3 mg/dL (0.0-0.2); Bilirubin Total 0.9 mg/dL (0.2-1.0); Globulin 4.2 g/dL; Total Protein 7.2 g/dL (6.4-8.2)
[2024-08-15 10:01] VITALS: BP 165/81; PULSE 62; O2SAT 98
[2024-08-15] MEDS: PIPERACILLIN SODIUM/TAZOBACTAM 3.375 GM in 0.9 % SODIUM CHLORIDE 50 ML IV (11:21)
[2024-08-15] MEDS: HYDROMORPHONE HCL 1 MG/ML CARTRIDGE IV ×2 (11:32→12:54)
--- NOTE | 2024-08-15 13:17 | PC.NURSE ---
Several attempts to call report to [facility] with no answer. Call placed to [facility] main line and was transfered to unit and spoke with charge nurse who will have nurse call back for report.
== END 2024-08-15 13:30 | disposition short-term general hospital (02) ==
PROVIDERS: Emergency Provider Emergency Medicine; PCP Internal Medicine
DX: R10.11 Right upper quadrant pain (principal)
CPT/HCPCS: 36415; 74177; 80048; 80076; 81001; 82150; 83690; 85025; 87040; 87086; 93005; 96365; 96375; 96376; 99285; J1171; J2270; J2543; Q9967

== ENCOUNTER 2025-01-16 09:23 | Outpatient (OUT) | payer MEDICARE, SELFPAY ==
--- OUTSIDE RECORDS SUMMARY | 2025-01-16 09:25 | XMS_ITS | Encounter Summary ---
Author Organization [facility] Address [address] [place] [address] Care Team Providers Care Chili Pepper Grinder Name Role Phone Anyi Lima MD Unavailable [phone] Paul Frias MD Primary Care Provider [phone] Deion López MD Primary Care Provider [phone] Paul Frias MD Primary Care Provider [phone] Encounter Details Date Type Department Care Team (Late Contact Info) Description 11/08/2022 Abstract [facility] [address] [place] [address] Anyi Lima MD [address] [place] [address] Social History Tobacco Use Types Packs/Day Years Used Date Smoking Tobacco: Never Smokeless Tobacco: Never Alcohol Use Standard Drinks/Week Comments Yes 3 (1 standard drink = 0.6 oz pure alcohol) coffee and soda 2-3 cups per day Sex and Gender Information Value Date Recorded Sex Assigned at Not on file Legal Sex Male 6:49 PM EDT Gender Identity Not on file Sexual Orientation Not on file 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 Not on file Not on file documented as of this encounter Plan of Treatment Upcoming Encounters Date Type Department Care Team (Late st Contact Info) Description 01/20/2025 3:00 PM EDT Office Visit [facility] [address] [place] [address] 03/17/2025 1:30 PM EST Office Visit [facility] [place] [facility] [address] [place] [phone] Anyi Lima MD [address] [place] [address] documented as of this encounter Visit Diagnoses Not on filedocumented in this encounter Care Teams Chili Pepper Grinder Relationship Specialty Start Date End Date Paul Frias MD [address] [place] [address] PCP - General Internal Medicine 11/22/22 11/18/24 Deion López MD [address] [facility] [place] [address] PCP - General Family Medicine 11/19/24 12/29/24 Paul Frias MD [address] [place] [address] PCP - General Internal Medicine 12/30/24 Anyi Lima MD [address] [place] [address] Referring Physician Dermatology 11/17/22 documented as of this encounter
--- OUTSIDE RECORDS SUMMARY | 2025-01-16 09:25 | XMS_ITS | Encounter Summary ---
Author Organization [facility] Address [address] [place] [address] Care Team Providers Care Chief Optometry Service Name Role Phone Anyi Lima MD Unavailable [phone] Paul Frias MD Primary Care Provider [phone] Deion López MD Primary Care Provider [phone] Paul Frias MD Primary Care Provider [phone] Encounter Details Date Type Department Care Team (Late Contact Info) Description 09/13/2022 Abstract [facility] [address] [facility] [address] [place] [address] Ina Magdaleno, RICKY [address] [facility] [address] [place] [address] Social History Tobacco Use Types Packs/Day Years [...] 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 Not on file documented as of this encounter Plan of Treatment Upcoming Encounters Date Type Department Care Team (Late st Contact Info) Description 01/20/2025 3:00 PM EDT Office Visit [facility] [address] [facility] [address] [place] [address] 03/17/2025 1:30 PM EST Office Visit [facility] [place] [facility] [address] [place] [phone] Anyi Lima MD [address] [place] [address] documented as of this encounter Visit Diagnoses Not on filedocumented in this encounter Care Teams Chief Optometry Service Relationship Specialty Start Date End Date Paul Frias MD [address] [place] [address] PCP - General Internal Medicine 11/22/22 11/18/24 Deion López MD [address] [place] [address] PCP - General Family Medicine 11/19/24 12/29/24 Paul Frias MD [address] [place] [address] PCP - General Internal Medicine 12/30/24 Anyi Lima MD [address] [place] [address] Referring Physician Dermatology 11/17/22 documented as of this encounter
--- OUTSIDE RECORDS SUMMARY | 2025-01-16 09:25 | XMS_ITS | Clinical Summary ---
Author Organization [facility] Address [address] [place] [address] Care Team Providers Care Cut Off Operator Scorer Name Role Phone Paul Frias MD Primary Care Provider [phone] Allergies No known active allergies Medications lansoprazole(PA EVACID 30 MG CAP) Take one(1) capsule daily. 0 03/11/2008 Active sulindac(CLINOR IL 200 MG TAB)Indications :Generalized osteoarthrosis, involving hand 1 PO BID with food 60 3 04/01/2008 Active Active Problems Problem Noted Date Diagnosed Date Kidney stone 03/18/2018 BPH without urinary obstruction 03/18/2018 Hydrocele in adult 03/18/2018 Generalized osteoarthrosis, involving hand 04/01 Plantar fascial fibromatosis 10/30/2006 Social History Tobacco Use Types Packs/Day Years Used Date Smoking Tobacco: Never Smokeless Tobacco: Never Area Deprivation Index Answer Date Neptali rded National Score (1-100), lower number is lower ri sk Not on file 04/12/2020 State Score (1-10), lower number is lower risk N ot on file 04/12/2020 Data from: https://www.neighborhoodatlas.medicine.[facility].edu/. Last address used for calculation Not on file 04/12/2020 Sex and Gender Information Value Date Recorded Sex Assigned at Not on file Legal Sex Male 8:07 AM EST Gender Identity Not on file Sexual Orientation Not on file Last Filed Vital Signs Vital Sign Reading Time Taken Comments Blood Pressure 149/79 03/18/2018 3:37 PM EST Pulse 65 03/18/2018 3:37 PM EST Temperature - - Respiratory Rate - - Oxygen Saturation - - Inhaled Oxygen Concentration - - Weight 93.4 kg (205 lb 12.8 oz) 03/18/2018 3:37 PM EST Height - - Body Mass Index - - Plan of Treatment Health Maintenance Due Date Last Done Comments Anxiety Screening 1970 Depression Screening 1970 Hepatitis C Screening 1970 DTaP,Tdap,Td Vaccine (1 - Tdap) 08/31/1971 Lipid Screening 08/31/1987 CT Colonography 1997 Cologuard (FIT-DNA) 1997 Colonoscopy 1997 Colorectal Cancer Screening 1997 Diabetes Screening 1997 Fecal Occult Blood 1997 Sigmoidoscopy 1997 Pneumococcal Vaccine: 50+ (1 of 1 - PCV) 2002 Shingrix Vaccine (1 of 2) 2002 Advance Directive Discussion 05/07/2024 Influenza Vaccine (#1) 2025 RSV Vaccine (1 - 1-dose 75+ series) 08/31/2027 Insurance BLUE CARD PPO OOS MEDICARE Care Teams Cut Off Operator Scorer Relationship Specialty Start Date End Date Paul Frias MD [facility] - General 04/27/08
--- OUTSIDE RECORDS SUMMARY | 2025-01-16 09:25 | XMS_ITS | Encounter Summary ---
Author Organization [facility] Address [address] [place] [address] Care Team Providers Care Instrumentation Supervisor Name Role Phone Anyi Lima MD Unavailable [phone] [facility] Paul Frias MD Primary Care Provider [phone] Encounter Details Date Type Department Care Team (Latest Contact Info) Description 01/13/2025 Travel Social History Tobacco Use Types Packs/Day Years Used Date Smoking Tobacco: Never Smokeless Tobacco: Never Alcohol Use Standard Drinks/Week Comments Yes 3 (1 standard drink = 0.6 oz pure alcohol) coffee and soda 2-3 cups per day PHQ-2 Answer Date Recorded Patient Health Questionnaire-2 Score 0 01/13/2025 Sex and Gender Information Value Date Recorded Sex Assigned at Not on file Legal Sex Male 6:49 PM EDT Gender Identity Not on file Sexual Orientation Not on file 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 Question Answer Date of Assessment Author Patient Health Questionnaire-2 Score 0 0 01/2025 8:14 PM EDT Mychart, Generic * Little interest or pleasure in doing things Answer Date of Assessment Author Not at all 01/13/2025 8:14 PM EDT Mychart, Generic * Feeling down, depressed, or hopeless Answer Date of Assessment Author Not at all 01/13/2025 8:14 PM EDT Mychart, Generic documented as of this encounter Plan of Treatment Upcoming Encounters Date Type Department Care Team ( Contact Info) Description 01/20/2025 3:00 PM EDT Office Visit [facility] [place] [facility] [address] [place] [address] 03/17/2025 1:30 PM EST Office Visit [facility] [address] [place] [phone] Anyi Lima MD [address] [place] [address] documented as of this encounter Visit Diagnoses Not on filedocumented in this encounter Care Teams Instrumentation Supervisor Relationship Specialty Start Date End Date Paul Frias MD [address] [facility] [address] [place] [address] PCP - General Internal Medicine 12/30/24 Anyi Lima MD [address] [place] [address] Referring Physician Dermatology 11/17/22 documented as of this encounter
--- OUTSIDE RECORDS SUMMARY | 2025-01-16 09:25 | XMS_ITS | Encounter Summary ---
Author Organization [facility] Address [address] [facility] [place] [address] Care Team Providers Care Intrusion Analyst Name Role Phone Anyi Lima MD Unavailable [phone] Paul Frias MD Primary Care Provider [phone] Deion López MD Primary Care Provider [phone] Paul Frias MD Primary Care Provider + Encounter Details Date Type Department Care Team (Late st Contact Info) Description 07/16/2023 Orders Only [facility] [address] [facility] [address] [place] [phone] A, Unknown Practice [address] [place], [place] [id number] Social History Tobacco Use Types Packs/Day Years Used Date Smoking Tobacco: Never Smokeless Tobacco: Never Alcohol Use Standard Drinks/Week Comments Yes 3 (1 standard drink = 0.6 oz pure alcohol) coffee and soda 2-3 cups per day PHQ-2 Answer Date Recorded Patient Health Questionnaire-2 Score 0 11/27/2022 Sex and Gender Information Value Date Recorded Sex Assigned at Not on file Legal Sex Male 6:49 PM EDT Gender Identity Not on file Sexual Orientation Not on file 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 Not on file documented as of this encounter Plan of Treatment Upcoming Encounters Date Type Department Care Team (Late st Contact Info) Description 01/20/2025 3:00 PM EDT Office Visit [facility] [address] [facility] [address] [place] [address] 03/17/2025 1:30 PM EST Office Visit [facility] [place] [facility] [address] [place] [phone] Anyi Lima MD [address] [place] [address] documented as of this encounter Procedures Procedure Name Priority Date/Time Associated Diagnosis Comments SCANNED LABS Routine 07/16/2023 4:04 PM EDT documented in this encounter Results * SCANNED LABS (07/16/2023 4:04 PM EDT) us Unknown Practice A LAB CHG PERFORMABLES Final Re sult documented in this encounter Visit Diagnoses Not on filedocumented in this encounter Care Teams Intrusion Analyst Relationship Specialty Start Date End Date Paul Frias MD [address] [facility] [place] [address] PCP - General Internal Medicine 11/22/22 11/18/24 Deion López MD [address] [place] [address] PCP - General Family Medicine 11/19/24 12/29/24 Paul Frias MD [address] [facility] [address] [place] [address] PCP - General Internal Medicine 12/30/24 Anyi Lima MD [address] [facility] [place] [address] Referring Physician Dermatology 11/17/22 documented as of this encounter
--- OUTSIDE RECORDS SUMMARY | 2025-01-16 09:25 | XMS_ITS | Encounter Summary ---
Author Organization [facility] Address [address] [facility] [place] [address] Care Team Providers Care Aircraft Inspection Record Clerk Name Role Phone Anyi Lima MD Unavailable [phone] Paul Frias MD Primary Care Provider [phone] Deion López MD Primary Care Provider [phone] Paul Frias MD Primary Care Provider + Encounter Details Date Type Department Care Team (Late st Contact Info) Description 11/24/2022 Orders Only [facility] [address] [facility] [address] [place] [phone] A, Unknown Practice [address] [place], [place] [phone] Social History Tobacco Use Types Packs/Day Years [...] 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 No / Unsure 11/27/2022 6:28 AM EDT documented as of this encounter Functional Status * Over the past 2 weeks, how often have you been bothered by any of the following problems? Question Answer Date of Assessment Author Little interest or pleasure in doing things Not at all 11/27/2022 1:00 PM EDT Mar Cantrell L PN Feeling down, depressed, or hopeless Not at all 11/27/2022 1:00 PM EDT Mar Cantrell L PN Patient Health Questionnaire -2 Score 0 11/27/2022 1:00 PM EDT Mar Cantrell L PN * Question Answer Date of Assessment Author Trouble falling or staying asleep, or sleeping too much Not at all 11/27/2022 1:00 PM EDT Mar Cantrell LPN documented as of this encounter Plan of Treatment Upcoming Encounters Date Type Department Care Team (Late st Contact Info) Description 01/20/2025 3:00 PM EDT Office Visit [facility] [address] [place] [phone] 03/17/2025 1:30 PM EST Office Visit [facility] [address] [place] [address] Anyi Lima MD [address] [place] [address] documented as of this encounter Procedures Procedure Name Priority Date/Time Associated Diagnosis Comments SCANNED LABS Routine 11/24/2022 12:59 PM EDT documented in this encounter Results * SCANNED LABS (11/24/2022 12:59 PM EDT) us Unknown Practice A LAB CHG PERFORMABLES Final Re sult documented in this encounter Visit Diagnoses Not on filedocumented in this encounter Care Teams Aircraft Inspection Record Clerk Relationship Specialty Start Date End Date Paul Frias MD [address] [place] [address] PCP - General Internal Medicine 11/22/22 11/18/24 Deion López MD [address] [facility] [place] [address] PCP - General Family Medicine 11/19/24 12/29/24 Paul Frias MD [address] [place] [address] PCP - General Internal Medicine 12/30/24 Anyi Lima MD [address] [place] [address] Referring Physician Dermatology 11/17/22 documented as of this encounter
--- OUTSIDE RECORDS SUMMARY | 2025-01-16 09:25 | XMS_ITS | Encounter Summary ---
Author Organization [facility] Address [address] [facility] [place] [address] Care Team Providers Care Poultry Husbandry Teacher Name Role Phone Anyi Lima MD Unavailable [phone] Paul Frias MD Primary Care Provider [phone] Deion López MD Primary Care Provider +- Paul Frias MD Primary Care Provider + Encounter Details Date Type Department Care Team (Late st Contact Info) Description 09/07/2022 Abstract [facility] [address] [facility] [address] [place] [address] Paul Frias MD [address] [facility] [address] [place] [address] Social History Tobacco Use Types Packs/Day Years Used Date Smoking Tobacco: Never Smokeless Tobacco: Never Tobacco Cessation:Counseling Given: Not Answered Alcohol Use Standard Drinks/Week Comments Yes 3 (1 standard drink = 0.6 oz pure alcohol) coffee and soda 2-3 cups per day Sex and Gender Information Value Date Recorded Sex Assigned at Not on file Legal Sex Male 6:49 PM EDT Gender Identity Not on file Sexual Orientation Not on file 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 Not on file documented as of this encounter Plan of Treatment Upcoming Encounters Date Type Department Care Team (Late st Contact Info) Description 01/20/2025 3:00 PM EDT Office Visit [facility] [address] [facility] [address] [place] [address] 03/17/2025 1:30 PM EST Office Visit [facility] [place] [facility] [address] [place] [address] Anyi Lima MD [address] [place] [address] documented as of this encounter Visit Diagnoses Not on filedocumented in this encounter Care Teams Poultry Husbandry Teacher Relationship Specialty Start Date End Date Paul Frias MD [address] [place] [address] PCP - General Internal Medicine 11/22/22 11/18/24 Deion López MD [address] [place] [address] PCP - General Family Medicine 11/19/24 12/29/24 Paul Frias MD [address] [place] [address] PCP - General Internal Medicine 12/30/24 Anyi Lima MD [address] [place] [address] Referring Physician Dermatology 11/17/22 documented as of this encounter
--- OUTSIDE RECORDS SUMMARY | 2025-01-16 09:25 | XMS_ITS | Encounter Summary ---
Author Organization [facility] Address [address] [facility] [place] [address] Care Team Providers Care Accounts Clerk Name Role Phone Anyi Lima MD Unavailable [phone] Paul Frias MD Primary Care Provider [phone] Deion López MD Primary Care Provider [phone] Paul Frias MD Primary Care Provider + Encounter Details Date Type Department Care Team (Late st Contact Info) Description 11/29/2022 Orders Only [facility] [address] [facility] [address] [place] [phone] A, Unknown Practice [address] [place], [place] [id number] Social History Tobacco Use Types Packs/Day Years [...] 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 No / Unsure 11/27/2022 6:28 AM EDT documented as of this encounter Plan of Treatment Upcoming Encounters Date Type Department Care Team (Late st Contact Info) Description 01/20/2025 3:00 PM EDT Office Visit [facility] [address] [place] [phone] 03/17/2025 1:30 PM EST Office Visit [facility] [address] [place] [phone] Anyi Lima MD [address] [place] [address] documented as of this encounter Procedures Procedure Name Priority Date/Time Associated Diagnosis Comments SCANNED LABS Routine 11/24/2022 1:47 PM EDT documented in this encounter Results * SCANNED LABS (11/24/2022 1:47 PM EDT) us Unknown Practice [facility] CHG PERFORMABLES Final Re sult documented in this encounter Visit Diagnoses Not on filedocumented in this encounter Care Teams Accounts Clerk Relationship Specialty Start Date End Date Paul Frias MD [address] [place] [address] PCP - General Internal Medicine 11/22/22 11/18/24 Deion López MD [address] [facility] [place] [phone] PCP - General Family Medicine 11/19/24 12/29/24 Paul Frias MD [address] [place] [address] PCP - General Internal Medicine 12/30/24 Anyi Lima MD [address] [place] [address] Referring Physician Dermatology 11/17/22 documented as of this encounter
--- OUTSIDE RECORDS SUMMARY | 2025-01-16 09:28 | XMS_ITS | CCD ---
Author Organization [facility] Team Providers Care Records And Information Manager Name Role Phone Carolyn Byrnes MD Primary Care Provider Lewis Kruse Primary Care Provider U SUSI Cordova Attending Unavailable SUSI MORALES Admitting Unavailable NUPUR, DR HAN Dang Consulting Unavailable SUSI MORALES Consulting Unavailable HOY ., DR WILEY Attending Unavailable HOY ., DR WILEY Consulting Unavailable HOY ., DR WILEY Admitting Unavailable HOY ., DR WILEY Attending Unavailable HOY ., DR WILEY Consulting Unavailable HOY ., DR WILEY Admitting Unavailable SUSI MORALES Attending Unavailable SUSI MORALES Admitting Unavailable Lawrence Eaton MD Unavailable [phone] Carolyn Byrnes MD Primary Care Provider Deborah Fontana Attending Unavailable Casimiro Suaoz DO Attending Provider [phone] Casimiro Suazo Admitting Unavailable Casimiro Suazo Attending Unavailable LAWRENCE EATON Attending Unavailable LAWRENCE EATON Attending Unavailable DEMIAN ALI Referring Unavailable NEIL ROUSE Attending Unavailable INEZ LÓPEZ Referring Unavailable NAWRAS ALI Admitting Unavailable NAWRASMANFRED Attending Unavailable INEZ LÓPEZ Referring Unavailable MARK JIANLIN Referring Unavailable ELIS MAKRIN Attending Unavailable NAORVILLEAS ALI Referring Unavailable MARK, JIANLIN Admitting Unavailable MARK JIAOLIVIAIN Attending Unavailable NAORVILLEAS ALI Referring Unavailable Unavailable Unavailable Unavailable Medications Current Medications Medication Drug Class(es) Dates Sig (Normalized) Sig (Original) acetaminophen 325 mg / oxyCODONE hydrochloride 5 mg oral tablet (2 sources) Opioid Agonist Start: 10-12-2018 take 1 tablet by mouth every six hours Oxycodone-Acetamin ophen Active 1 TAB Oral Q6H 10 3 October 12, 2018 9:45pm [id number] 200 actuat albuterol 0.09 mg/actuat metered dose inhaler (10 sources) beta2-Adrenergic Agonist Start: 07-17-2023 take 2 puff(s) by inhalation every four hours as needed albuterol HFA (Ventolin HFA) 90 mcg/act inhaler Indications: Moderate persistent asthma without complication (CMS/HCC) Inhale 2 puffs every 4 (four) hours if needed (as needed) 18 g 3 07/17/2023 Active Start: 10-12-2018 Albuterol Sulf ate Active October 12, 2018 8:58pm Albuterol Sulfate (Ventolin Hfa) 90 mcg/actuation HFA aerosol inhaler (1 source) Start: 10-12-2018 Albuterol Sulf ate (Ventolin Hfa) 90 mcg/actuation HFA aerosol inhaler Active October 12, 2018 12:00am 60 actuat budesonide 0.16 mg/actuat / formoterol fumarate 0.0045 mg/actuat metered dose inhaler (11 sources) Corticosteroid, beta2-Adrenergic Agonist Start: 08-27-2023 budesonide-formotero l (Symbicort) 160-4.5 MCG/ACT inhaler Indications: Moderate persistent asthma without complication (CMS/HCC) USE 2 INHALATIONS BY MOUTH EVERY MORNING AND BEFORE BEDTIME 20.4 g 5 08/27/2023 Active Start: 10-12-2018 Budesonide-For moterol Active October 12, 2018 8:58pm esomeprazole 20 mg delayed release oral capsule (9 sources) Proton Pump Inhibitor take 1 capsule by mouth once daily esomeprazole (NexIUM) [address] capsule Take 1 capsule by mouth 1 (one) time each day at the same time Active fluticasone propionate 0.05 mg/actuat metered dose nasal spray (9 sources) Corticosteroid Start: 07-17-19 24 take 1 spray(s) nasal route in the morning fluticasone (Flonase) 50 MCG/ACT nasal spray Indications: Moderate persistent asthma without complication (CMS/HCC) Administer 1 spray into each nostril in the morning and 1 spray before bedtime. 16 g 3 07/17/2023 Active predniSONE 50 mg oral tablet (2 sources) Start: 10-13-19 take 50 mg by mouth once daily at mealtime Prednisone Active 50 MG Oral Daily 09 08October 12, 2018 9:46pm administer with food or milk Problems Active Problems Problem Classification Problem Date Documented Date Episodic/Chronic Abdominal pain (1 source) Flank pain 02-27-2024 Episodic Asthma (9 sources) Uncomplicated moderate persistent asthma; Translations: [Moderate persistent asthma, uncomplicated] Onset: 09-13-2022 07-13-2023 Chronic Biliary tract disease (2 sources) Obstruction of bile duct; Translations: [Obstruction of bile duct] Onset: 08-01-2024 Chronic Biliary tract disease (4 sources) Calculus of bile duct without cholangitis or cholecystitis without obstruction; Translations: [Acute cholecystitis] Onset: 08-15-2024 Episodic Disorders of lipid metabolism (9 sources) Pure hypercholesterolemia; Translations: [Pure hypercholesterolemia, unspecified] Onset: 09-13-2022 11-01-2022 Chronic Esophageal disorders (9 sources) Gastroesophageal reflux disease without esophagitis; Translations: [Gastro-esophageal reflux disease without esophagitis] Onset: 09-13-2022 07-13-2023 Chronic Hyperplasia of prostate (10 sources) Benign prostatic hypertrophy without outflow obstruction; Translations: [Benign prostatic hyperplasia without lower urinary tract symptoms] Onset: 03-18-2018 03-18-2018 Chronic Osteoarthritis (1 source) Generalized osteoarthritis of the hand; Translations: [Polyosteoarthritis, unspecified] Onset: 04-01-2008 04-01-2008 Chronic Other and unspecified benign neoplasm (2 sources) Melanocytic nevus of trunk; Translations: [Melanocytic nevi of trunk] 09-08-2024 Episodic Other connective tissue disease (2 sources) Plantar fascial fibromatosis; Translations: [Plantar fascial fibromatosis] Onset: 10-30-2006 Episodic Other liver diseases (2 sources) Unspecified jaundice; Translations: [Unspecified jaundice] Onset: 08-01-2024 Episodic Other male genital disorders (1 source) Pain in testicle 02-27-2024 Episodic Other male genital disorders (1 source) Spermatocele 02-27-2024 Episodic Other non-epithelial cancer of skin (6 sources) History of malignant basal cell neoplasm of skin; Translations: [Personal history of other malignant neoplasm of skin] 02-11-2024 Episodic Other skin disorders (2 sources) Seborrheic keratosis; Translations: [Other seborrheic keratosis] 02-11-2024 Episodic Other skin disorders (4 sources) Lentiginosis; Translations: [Other melanin hyperpigmentation] 02-11-2024 Episodic Other skin disorders (4 sources) Actinic keratosis; Translations: [Actinic keratosis] 02-11-2024 Episodic Sprains and strains (3 sources) Thoracic back sprain; Translations: [Strain of left Achilles tendon, subsequent encounter] Onset: 05-23-2022 10-12-2018 Episodic Past or Other Problems Problem Classification Problem Date Documented Date Episodic/Chronic Calculus of urinary tract (20 sources) Kidney stone; Translations: [Calculus of kidney] [...] conditions (not mental disorders or infectious disease) (9 sources) Raised prostate specific antigen; Translations: [Elevated prostate specific antigen [PSA]] Onset: 09-13-2022 09-13-2022 Episodic Results Test Name Value Interpretation Reference Range Facility [facility] 09-11-2024 H&P reviewed. The patient was examined and there are no changes to the H&P. Naomi Forrester is a 73 y.o. male who was in his usual state of health until July 30, 2024 when he started having lower abdominal pain and noted to have dark urine. Ultrasound of right upper quadrant revealed cholelithiasis with a prominent common bile duct but no choledocholithiasis. Labs revealed elevated liver function test including hyperbilirubinemia. The patient had an ERCP performed on August 01, 2024 and stones were removed from the common bile duct. Biliary stent was placed. Subsequent to that the patient had laparoscopic cholecystectomy. He is presenting today for ERCP for common bile duct stent removal and for final clearance of the common bile duct. Normal [facility] POCT GLUCOSE METER UNSOLICIT ED RESULTSon 09-11-2024 Glucose [Mass/Vol] 93 mg/dL Normal 70-105 [facility] Comment on above: Order Comment: Waive d Testing in the ED is performed under the ED CLIA certificate #[id number]. Result Comment: marina [email or web address] Performed By: #### L [id number] #### [facility] ([facility]) [address] [place] [address] No Panel Informationon 09-08 [facility] Orders Onlyon 09-02-2024 Orders Only [id number] Herber Forrester s 1950 M Date Provider Department Center 09/02/2024 Moiz-CHELO BOYD [facility] No family history on file [facility] Prep for Procedureon 025 Prep for Procedure [id number] Herber Forrester s 1950 M Date Provider Department Center 09/02/2024 MANFRED HOLMAN [facility] No family history on file [facility] Office Visiton 08-27-2024 Follow-up visit [id number] Herber Forrester 1950 M Date Provider Department Center 08/27/2024 454-BONITA MARK [facility] SURG Second Fl No family history on file Level of Service:73064 ME POSTOP FOLLOW UP VISIT RELATED TO ORIGINAL PX Reason for Visit and Comments: Post-op [483] - Patient is here for a post-op appointment, s/p robotic cholecystectomy 08/15/2024 - acute gangrene gallbladder. Normal [facility] CBC WITH AUTO DIFFERENTIALon 08-16-2024 Basophils (Bld) [#/Vol] 0.00 10*3/uL Normal 0.00-0.20 [facility] Comment on above: Performed By: #### L [id number] #### [facility] ([facility]) [address] [place] [address] Basophils/100 WBC (Bld) 0.0 % Normal 0.0-1.0 [facility] Comment on above: Performed By: #### L [id number] #### [facility] [address] [place] [address] Eosinophils (Bld) [#/Vol] 0.00 10*3/uL Normal 0.00-0.50 [facility] Comment on above: Performed By: #### L [id number] #### [facility] ([facility]) [address] [place] [address] Eosinophils/100 WBC (Bld) 0.0 % Normal 0.0-6.0 [facility] Comment on above: Performed By: #### L [id number] #### [facility] ([facility]) [address] [place] [address] Erythrocyte distribution width (RBC) [Ratio] 14.6 % Normal 11.5-15.0 [facility] Comment on above: Performed By: #### L [id number] #### [facility] [address] [place] [address] ERYTHROCYTE MEAN CORPUSCULAR HEMOGLOBIN CONCENTRATION (G/DL) BY AUTOMATED 33.0 g/dL Normal 32.0-35.0 [facility] Comment on above: Performed By: #### L [id number] #### [facility] [address] [place] [address] Hematocrit (Bld) [Volume fraction] 33.6 % Low 39.0-50.0 [facility] Comment on above: Performed By: #### L [id number] #### [facility] ([facility]) [address] [place] [address] Hemoglobin (Bld) [Mass/Vol] 11.1 g/dL Low 13.0-17.0 [facility] Comment on above: Performed By: #### L [id number] #### [facility] ([facility]) [address] [place] [address] Immature granulocytes (Bld) [#/Vol] 0.03 10*3/uL Normal 0.00-0.20 [facility] Comment on above: Performed By: #### L [id number] #### [facility] ([facility]) [address] [place] [place] [address] Immature granulocytes/100 WBC (Bld) 0.4 % Normal 0.0-1.0 [facility] Comment on above: Performed By: #### L [id number] #### [facility] ([facility]) [address] [place] [address] Lymphocytes (Bld) [#/Vol] 0.54 10*3/uL Low 1.20-4.00 [facility] Comment on above: Performed By: #### L [id number] #### [facility] ([facility]) [address] [place] [address] Lymphocytes/100 WBC (Bld) 6.5 % Low 20.0-45.0 [facility] Comment on above: Performed By: #### L [id number] #### [facility] ([facility]) [address] [place] [address] MCH (RBC) [Entitic mass] 30.2 pg Normal 27.0-33.0 [facility] Comment on above: Performed By: #### L [id number] #### [facility] ([facility]) [address] [place] [address] MCV (RBC) [Entitic vol] 91.3 fL Normal 82.0-98.0 [facility] Comment on above: Performed By: #### L [id number] #### [facility] ([facility]) [address] [place] [address] Monocytes (Bld) [#/Vol] 0.52 10*3/uL Normal 0.10-1.00 [facility] Comment on above: Performed By: #### L [id number] #### [facility] ([facility] [address] [place] [address] Monocytes/100 WBC (Bld) 6.3 % Normal 5.0-12.0 [facility] Comment on above: Performed By: #### L [id number] #### [facility] ([facility]) [address] [place] [address] Neutrophils (Bld) [#/Vol] 7.22 10*3/uL Normal 1.60-7.60 [facility] Comment on above: Performed By: #### L [id number] #### [facility] ([facility]) [address] [place] [address] Neutrophils/100 WBC (Bld) 86.8 % High 40.0-72.0 [facility] Comment on above: Performed By: #### L [id number] #### [facility] ([facility]) [address] [place] [address] NRBC (PER 100 WBCS) BY AUTOMATED COUNT 0.0 % Normal 0 [facility] Comment on above: Performed By: #### L [id number] #### [facility] ([facility]) [address] [place] [address] PLATELETS (10*3/UL) IN BLOOD AUTOMATED COUNT 278 10*3/uL Normal 150-400 [facility] Comment on above: Performed By: #### L [id number] #### [facility] ([facility]) [address] [place] [address] RBC (Bld) [#/Vol] 3.68 10*6/uL Low 4.20-5.70 [facility] Comment on above: Performed By: #### L [id number] #### [facility] [address] [place] [address] WBC (Bld) [#/Vol] 8.31 10*3/uL Normal 4.00-10.60 [facility] Comment on above: Performed By: #### L [id number] #### [facility] ([facility]) [address] [place] [address] COMPREHENSIVE METABOLIC PANE Tony 08-16-2024 Albumin [Mass/Vol] 3.3 g/dL Low 3.5-5.7 [facility] Comment on above: Performed By: #### L [id number] ####[facility] ([facility])[address] [place] [address] ALP [Catalytic activity/Vol] 71 U/L Normal 34-104 [facility] Comment on above: Performed By: #### L [id number] ####[facility] ([facility])[address] [place] [address] ALT [Catalytic activity/Vol] 34 U/L Normal 7-52 [facility] Comment on above: Performed By: #### L [id number] ####[facility] ([facility])[address] [place] [address] Anion gap [Moles/Vol] 9 mmol/L Normal 7-20 [facility] Comment on above: Performed By: #### L [id number] ####[facility] ([facility])[address] [place] [address] AST [Catalytic activity/Vol] 34 U/L Normal 13-39 [facility] Comment on above: Performed By: #### L [id number] ####[facility] ([facility])[address] [place] [address] Bilirubin [Mass/Vol] 0.6 mg/dL Normal 0.3-1.0 [facility] Comment on above: Performed By: #### L [id number] ####[facility] ([facility])[address] [place] [address] Calcium [Mass/Vol] 8.8 mg/dL Normal 8.6-10.3 [facility] Comment on above: Performed By: #### L [id number] ####[facility] ([facility])[address] [place] [address] Chloride [Moles/Vol] 102 mmol/L Normal 98-107 [facility] Comment on above: Performed By: #### L [id number] ####[facility] ([facility])[address] [place] [address] CO2 [Moles/Vol] 28 mmol/L Normal 21-31 [facility] Comment on above: Performed By: #### L [id number] ####[facility] ([facility])[address] [place] [address] Creatinine [Mass/Vol] 0.81 mg/dL Normal 0.70-1.30 [facility] Comment on above: Performed By: #### L [id number] ####[facility] ([facility])[address] [place] [address] GLOMERULAR FILTRATION RATE ML/MIN/1.73 SQ M.PREDICTED 94.3 mL/min/1.73m*2 Normal >60.0 [facility] Comment on above: Result Comment: The [facility]???s estimated glomerular filtration rate (eGFR) will no longer include consideration of race in its calculation. The National Kidney Foundation???s eGFR Task Force developed new recommendations for the estimation of the glomerular filtration rate in the [place] They recommend immediate implementation of the new equation refit without the race variable in all laboratories because the calculation does not include race. In addition to not including race in the calculation and reporting, it included diversity in its development, and has acceptable performance characteristics and potential consequences that do not disproportionately affect any one group of individuals. Performed By: #### L [id number] ####[facility] ([facility] [place] [address] Glucose [Mass/Vol] 214 mg/dL High 70-100 [facility] Comment on above: Performed By: #### L [id number] ####[facility] ([facility] [place] [address] Potassium [Moles/Vol] 4.5 mmol/L Normal 3.5-5.1 [facility] Comment on above: Performed By: #### L [id number] ####[facility] ([facility])[address] [facility] [place] [address] Protein [Mass/Vol] 6.6 g/dL Normal 6.0-8.3 [facility] Comment on above: Performed By: #### L [id number] ####[facility] ([facility])[address] [place] [address] Sodium [Moles/Vol] 134 mmol/L Low 136-145 [facility] Comment on above: Performed By: #### L [id number] ####[facility] ([facility])[address] [facility] [place] [address] Urea nitrogen [Mass/Vol] 18 mg/dL Normal 7-25 [facility] Comment on above: Performed By: #### L [id number] ####[facility] ([facility])[address] [facility] [place] [address] UREA NITROGEN/CREATININE (MASS RATIO) IN SER/PLAS 22.2 Normal [facility] Comment on above: Performed By: #### L [id number] ####[facility] ([facility])[address] [place] [address] DSon 08-16-2024 DS Admission Admitted 08/15/2024 for Cholecystitis Discharge Diagnosis Acute cholecystitis Discharge Disposition Home or Self Care (01) Discharge Medications Your medication list START taking these medications Instructions Last Dose Given Next Dose Due acetaminophen 500 mg tablet Commonly known as: Tylenol Take 2 tablets (1,000 mg) by mouth every 6 (six) hours if needed for mild pain (1-3 pain score). amoxicillin-pot clavulanate 875-125 mg tablet Commonly known as: Augmentin Take 1 tablet by mouth two times daily for 4 days. ibuprofen 600 mg tablet Take 1 tablet (600 mg) by mouth every 8 (eight) hours if needed for moderate pain (4-7 pain score) for up to 10 days. oxyCODONE 5 mg immediate release capsule Commonly known as: Oxy-IR Take 1 capsule (5 mg) by mouth every 8 (eight) hours if needed for severe pain (8-10 pain score) (for pain not improved with tylenol/Ibuprofen) for up to 2 days. CONTINUE taking these medications Instructions Last Dose Given Next Dose Due albuterol 90 mcg/actuation inhaler budesonide-formoteroL 160-4.5 mcg/actuation inhaler Commonly known as: Symbicort esomeprazole [address] capsule Commonly known as: NexIUM fluticasone 50 mcg/actuation nasal spray Commonly known as: Flonase Where to Get Your Medications These medications were sent to [facility] #[id number] - [place], [place] - [address] AT [facility] [address] [facility] [address] acetaminophen 500 mg tablet amoxicillin-pot clavulanate 875-125 mg tablet ibuprofen 600 mg tablet oxyCODONE 5 mg immediate release capsule Activity Normal activity as tolerated Driving instructions: no driving if having pain or if taking narcotic pain medications No strenuous activity Showering instructions: ok to shower, no tub baths or pools. Diet Allergies Patient has no known allergies. Hospital Course Naomi Forrester is a 74 M patient who presented to [facility] as a transfer from [facility] with acute cholecystitis. Patient was taken to OR and underwent Laparoscopic cholecystectomy without complication. On POD 1 patient was tolerating reg diet without any issues, pain minimal and well controlled with oral meds. Patient discharged home and will follow up in gen surgery clinic in 2 weeks. Pertinent Physical Exam At Time of Discharge Physical Exam General Appearance: Awake, Alert & Oriented x3, No Acute Distress Neck: Trachea Midline, No jugular venous distension Pulmonary: Unlabored breathing. No expiratory wheeze. Cardiac: Regular rate Abdomen: soft, appropriately tender around incisions Extremity: No edema Bilateral Upper and lower Extremities Incisions: clean and dry Lines, Drains, Tubes: IRVIN drain with SS drainage Lab Results Labs Reviewed CBC - Abnormal Result Value Auto WBC 11.16 (*) RBC 3.91 (*) Hemoglobin 11.7 (*) Hematocrit 35.7 (*) MCV 91.3 MCH 29.9 MCHC 32.8 RDW 14.7 Platelets 269 COMPREHENSIVE METABOLIC PANEL - Abnormal Sodium 136 Potassium 4.0 Chloride 102 CO2 28 Anion Gap 10 BUN 14 Creatinine 0.83 BUN/Creatinine Ratio 16.9 Glucose 104 (*) Calcium 8.5 (*) AST 20 ALT (SGPT) 24 Alkaline Phosphatase 80 Total Protein 7.1 Albumin 3.6 Total Bilirubin 1.0 eGFR 93.6 PROTIME-INR - Abnormal Protime 15.4 (*) INR 1.23 (*) COMPREHENSIVE METABOLIC PANEL - Abnormal Sodium 134 (*) Potassium 4.5 Chloride 102 CO2 28 Anion Gap 9 BUN 18 Creatinine 0.81 BUN/Creatinine Ratio 22.2 Glucose 214 (*) Calcium 8.8 AST 34 ALT (SGPT) 34 Alkaline Phosphatase 71 Total Protein 6.6 Albumin 3.3 (*) Total Bilirubin 0.6 eGFR 94.3 CBC WITH AUTO DIFFERENTIAL - Abnormal Auto WBC 8.31 RBC 3.68 (*) Hemoglobin 11.1 (*) Hematocrit 33.6 (*) MCV 91.3 MCH 30.2 MCHC 33.0 RDW 14.6 Neutrophils % 86.8 (*) Lymphocytes % 6.5 (*) Monocytes % 6.3 Eosinophils % 0.0 Basophils % 0.0 Neutrophils Absolute 7.22 Lymphocytes Absolute 0.54 (*) Monocytes Absolute 0.52 Eosinophils Absolute 0.00 Basophils Absolute 0.00 Platelets 278 nRBC % 0.0 Immature Granulocytes % 0.4 Immature Granulocytes Absolute 0.03 CBC AND DIFFERENTIAL Narrative: The following orders were created for panel order CBC and differential. Procedure Abnormality Status --------- ------ CBC auto differential[[id number]] Abnormal Final result Please view results for these tests on the individual orders. HISTOLOGY - TISSUE EXAM Case Report Value: Surgical Pathology Case: [id number] Authorizing Provider: Bonita Mark MD Collected: 08/[id number]/[id number] Ordering Location: [facility] Main Operating Room Received: 08/15/20242225 Pathologist: Adore Thurman MD Specimen: Gallbladder, ACUTE GANGRENOUS CHOLECYSTITIS GALLSTONES AND GALLBLADDER Final Diagnosis Value: A. Gallbladder, cholecystectomy: - Acute gangrenous cholecystitis. Clinical Information Value: Post-Op Diagnoses K81.0 - Acute cholecystitis [ICD-10-CM] K80 (more content not included)... [facility] NURSNOTEon 08-16-2024 NURSNOTE Discharge instructio jaron reviewed with patient and spouse. Educated on IRVIN drainage and recording output. IV removed. Prescriptions sent to own pharmacy. Patient and spouse verbalized understanding . Patient chose to walk on his own to car. Gait steady. Offered tylenol for ride home. Patient declined. Normal [facility] 36on 08-15-[address] Arciniega spoke wit h ER physician [facility] [address] Dr. Arciniega did a micha nt placement on the patient and he's having some complications. Patient si currently at [facility] and Dr. Casimiro Suazo would like to speak with Dr. Arciniega at [phone] [facility] CBCon 08-15-2024 Erythrocyte distribution width (RBC) [Ratio] 14.7 % Normal 11.5-15.0 [facility] Comment on above: Performed By: #### L [id number] #### [facility] ([facility]) [address] [place] [address] ERYTHROCYTE MEAN CORPUSCULAR HEMOGLOBIN CONCENTRATION (G/DL) BY AUTOMATED 32.8 g/dL Normal 32.0-35.0 [facility] Comment on above: Performed By: #### L [id number] #### [facility] ([facility]) [address] [place] [address] Hematocrit (Bld) [Volume fraction] 35.7 % Low 39.0-50.0 [facility] Comment on above: Performed By: #### L [id number] #### [facility] ([facility]) [address] [place] [address] Hemoglobin (Bld) [Mass/Vol] 11.7 g/dL Low 13.0-17.0 [facility] Comment on above: Performed By: #### L [id number] #### [facility] ([facility]) [address] [place] [address] MCH (RBC) [Entitic mass] 29.9 pg Normal 27.0-33.0 [facility] Comment on above: Performed By: #### L [id number] #### [facility] ([facility]) [address] [place] [address] MCV (RBC) [Entitic vol] 91.3 fL Normal 82.0-98.0 [facility] Comment on above: Performed By: #### L [id number] #### [facility] ([facility]) [address] [place] [address] PLATELETS (10*3/UL) IN BLOOD AUTOMATED COUNT 269 10*3/uL Normal 150-400 [facility] Comment on above: Performed By: #### L [id number] #### [facility] ([facility]) [address] [place] [address] RBC (Bld) [#/Vol] 3.91 10*6/uL Low 4.20-5.70 [facility] Comment on above: Performed By: #### L [id number] #### [facility] ([facility]) [address] [place] [address] WBC (Bld) [#/Vol] 11.16 10*3/uL High 4.00-10.60 [facility] Comment on above: Performed By: #### L [id number] #### [facility] ([facility]) [address] [place] [address] COMPREHENSIVE METABOLIC PANE Tony 08-15-2024 Albumin [Mass/Vol] 3.6 g/dL Normal 3.5-5.7 [facility] Comment on above: Performed By: #### L [id number] #### [facility] ([facility]) [address] [place] [address] ALP [Catalytic activity/Vol] 80 U/L Normal 34-104 [facility] Comment on above: Performed By: #### L [id number] #### [facility] ([facility]) [address] [place] [address] ALT [Catalytic activity/Vol] 24 U/L Normal 7-52 [facility] Comment on above: Performed By: #### L [id number] #### [facility] ([facility]) [address] [place] [address] Anion gap [Moles/Vol] 10 mmol/L Normal 7-20 [facility] Comment on above: Performed By: #### L [id number] #### [facility] ([facility]) [address] [place] [address] AST [Catalytic activity/Vol] 20 U/L Normal 13-39 [facility] Comment on above: Performed By: #### L [id number] #### [facility] ([facility]) [address] [place] [address] Bilirubin [Mass/Vol] 1.0 mg/dL Normal 0.3-1.0 [facility] Comment on above: Performed By: #### L [id number] #### [facility] ([facility]) [address] [place] [address] Calcium [Mass/Vol] 8.5 mg/dL Low 8.6-10.3 [facility] Comment on above: Performed By: #### L [id number] #### [facility] ([facility]) [address] [place] [address] Chloride [Moles/Vol] 102 mmol/L Normal 98-107 [facility] Comment on above: Performed By: #### L [id number] #### [facility] ([facility]) [address] [place] [address] CO2 [Moles/Vol] 28 mmol/L Normal 21-31 [facility] Comment on above: Performed By: #### L [id number] #### [facility] ([facility]) [address] [place] [address] Creatinine [Mass/Vol] 0.83 mg/dL Normal 0.70-1.30 [facility] Comment on above: Performed By: #### L [id number] #### [facility] ([facility]) [address] [place] [address] GLOMERULAR FILTRATION RATE ML/MIN/1.73 SQ M.PREDICTED 93.6 mL/min/1.73m*2 Normal >60.0 [facility] Comment on above: Result Comment: The [facility]???s estimated glomerular filtration rate (eGFR) will no longer include consideration of race in its calculation. The National Kidney Foundation???s eGFR Task Force developed new recommendations for the estimation of the glomerular filtration rate in the [place] They recommend immediate implementation of the new equation refit without the race variable in all laboratories because the calculation does not include race. In addition to not including race in the calculation and reporting, it included diversity in its development, and has acceptable performance characteristics and potential consequences that do not disproportionately affect any one group of individuals. Performed By: #### L [id number] #### [facility] ([facility]) [address] [place] [address] Glucose [Mass/Vol] 104 mg/dL High 70-100 [facility] Comment on above: Performed By: #### L [id number] #### [facility] ([facility]) [address] [place] [address] Potassium [Moles/Vol] 4.0 mmol/L Normal 3.5-5.1 [facility] Comment on above: Performed By: #### L [id number] #### [facility] ([facility]) [address] [place] [address] Protein [Mass/Vol] 7.1 g/dL Normal 6.0-8.3 [facility] Comment on above: Performed By: #### L [id number] #### [facility] ([facility]) [address] [place] [address] Sodium [Moles/Vol] 136 mmol/L Normal 136-145 [facility] Comment on above: Performed By: #### L [id number] #### [facility] ([facility]) [address] [place] [address] Urea nitrogen [Mass/Vol] 14 mg/dL Normal 7-25 [facility] Comment on above: Performed By: #### L [id number] #### [facility] ([facility]) [address] [place] [address] UREA NITROGEN/CREATININE (MASS RATIO) IN SER/PLAS 16.9 Normal [facility] Comment on above: Performed By: #### L [id number] #### [facility] ([facility]) [address] [place] [address] HISTOLOGY - TISSUE EXAMon LAB AP CASE REPORT Normal [facility] Comment on above: Order Comment: Pre-o p diagnosis:Acute cholecystitis [K81.0] Result Comment: Surg ical Pathology Case: [id number] Authorizing Provider: Bonita Mark MD Collected: 08/15/20242114 Ordering Location: [facility] Main Operating Room Received: 08/15/20242225 Pathologist: Adore Thurman MD Specimen: Gallbladder, ACUTE GANGRENOUS CHOLECYSTITIS GALLSTONES AND GALLBLADDER Performed By: #### L [id number] ####[facility] ([facility])[address] [facility] [place] [address] LAB AP CLINICAL INFORMATION Normal [facility] Comment on above: Order Comment: Pre-o p diagnosis:Acute cholecystitis [K81.0] Result Comment: Post -Op Diagnoses K81.0 - Acute cholecystitis [ICD-10-CM] K80.43 - Calculus of bile duct with acute cholecystitis and obstruction [ICD-10-CM] K82.A1 - Cholecystitis with gangrene of gallbladder [ICD-10-CM] Performed By: #### L [id number] ####[facility] ([facility])[address] [facility] [place] [address] LAB AP GROSS DESCRIPTION A. Gallbladder. Normal [facility] Comment on above: Order Comment: Pre-o p diagnosis:Acute cholecystitis [K81.0] Result Comment: Part A is received in formalin labeled Naomi Usama and gangrenous cholecystitis gallstones and gallbladder. It consists of a previously opened 7.5 x 3.6 x 3.3 cm gallbladder with a 0.5 cm in length by 0.6 cm in diameter, opened cystic duct. The serosal surface is pink-ramírez, markedly roughened with adhesions and ramírez-white possible exudate. There is a 0.5 x 0.2 cm transmural opening on the hepatic bed of the body. The remainder of the hepatic bed is barr-green and roughened. Upon opening, the entirety of the lumen and the neck contains a 5.8 x 5.2 x 1.5 cm aggregate of yellow-barr, friable, inspissated material. The mucosa is green-pink and diffusely denuded. The wall is up to 0.2 cm thick. No periductal lymph nodes are identified. Channel Marketing Program Manager sections are submitted as follows: A1: Cystic duct margin, en face; neck A2: Body with transmural opening; fundus Lacy Gallardo, Pathologists' Continuing Education Dean student Cande Georges, Pathologists' Continuing Education Dean student Performed By: #### L [id number] ####[facility] ([facility])[address] [place] [address] LAB AP MICROSCOPIC DESCRIPTION Microscopic examination performed. [facility] Comment on above: Order Comment: Pre-o p diagnosis:Acute cholecystitis [K81.0] Performed By: #### L [id number] ####[facility] ([facility])[address] [place] [address] LAB AP REPORT FINAL DIAGNOSIS NARRATIVE [facility] Comment on above: Order Comment: Pre-o p diagnosis:Acute cholecystitis [K81.0] Result Comment: A. G allbladder, cholecystectomy: - Acute gangrenous cholecystitis. Performed By: #### L [id number] ####[facility] ([facility])[address] [place] [address] HPon 08-15-2024 ---- -------- Attestation signed by Bonita Mark MD at 08/15/2024 7:07 PM Attending Physician Statement I have discussed the case, including pertinent history and exam findings with Dr. Payne, surgical coder and have personally seen the patient. I agree with the assessment, plan and orders as documented. [phone] pager [phone] phone Elmer -------- [facility] General Surgery Consults History of Present Illness: Naomi Forrester is a 73 y.o.male who presents as a direct admit from [facility] with acute cholecystitis, recently s/p ERCP/EUS with removal of multiple CBD stones, biliary sphincterotomy, and plastic biliary stent placement on 08/01/24. Patient reports that he just flew back from vacation in [place] last night, and has been struggling with abdominal pain for the past 5 days. Recently underwent biliary stent placement on 08/01 and was doing fine, without issues. He reports that he was tolerating regular PO intake while on vacation and was also active/exercising every day. About 5 days ago, while playing pool basketball, he developed acute onset RUQ abdominal pain. Pain has been relatively constant since its onset, has not been relieved with various over the counter pain medications, and has been affecting his sleep. He endorses diaphoresis, mild nausea and significant radiation of pain bilaterally, to his shoulders, and to his back. No emesis, chest pain, fever, chills. Review of Systems Constitutional: Positive for diaphoresis. Negative for chills, fatigue and fever. Respiratory: Negative for chest tightness and shortness of breath. Cardiovascular: Negative for chest pain and palpitations. Gastrointestinal: Positive for abdominal pain and nausea. Negative for vomiting. Neurological: Negative for dizziness and weakness. Past Medical History: Diagnosis Date Asthma GERD (gastroesophageal reflux disease) Past Surgical History: Procedure Laterality Date KNEE ARTHROSCOPY W/ ARTHROTOMY Bilateral PLANTAR FASCIA RELEASE Left No Known Allergies Current Facility-Administered Medications: acetaminophen (Tylenol) tablet 1,000 mg, 1,000 mg, oral, q6h, Kirstin Payne MD cefTRIAXone (Rocephin) IVPB 1 g in NS 50 mL (Mini-Bag Plus), 1 g, intravenous, q24h, Kirstin Payne MD lactated Ringer's infusion, 100 mL/hr, intravenous, Continuous, Kirstin Payne MD metroNIDAZOLE in NaCl (iso-os) (Flagyl) IVPB 500 mg, 500 mg, intravenous, q12h, Kirstin Payne MD oxyCODONE (Roxicodone) immediate release tablet 5 mg, 5 mg, oral, q6h PRN OR oxyCODONE (Roxicodone) immediate release tablet 10 mg, 10 mg, oral, q6h PRN, Kirstin Payne MD, 10 mg at 08/15/24 1535 Insert peripheral IV, , , Once AND Saline lock IV, , , Once AND sodium chloride flush 10 mL, 10 mL, intravenous, q8h PRN, Kirstin Payne MD Social History Socioeconomic History Marital status: Spouse name: Not on file Number of children: Not on file Years of education: Not on file Highest education level: Not on file Occupational History Not on file Tobacco Use Smoking status: Never Smokeless tobacco: Never Vaping Use Vaping status: Never Used Substance and Sexual Activity Alcohol use: Yes Alcohol/week: 3.0 standard drinks of alcohol Types: 3 Standard drinks or equivalent per week Comment: weekly Drug use: Never Sexual activity: Defer Other Topics Concern Not on file Social History Narrative Not on file Social Determinants of Health Financial Resource Strain: Not on file Food Insecurity: Not on file Transportation Needs: Not on file Physical Activity: Not on file Stress: Not on file Social Connections: Not on file Intimate Partner Violence: Not on file Housing Stability: Not on file No family history on file. Physical Exam: Vital Signs: Blood pressure 144/63, pulse 75, temperature 37.8 ???C (100 ???F), temperature source Oral, resp. rate 16, height 1.803 m (5' 11 ), weight 88.5 kg (195 lb), SpO2 98%. Admission Weight: Weight: 88.5 kg (195 lb) Physical Exam Constitutional: General: He is not in acute distress. Appearance: Normal appearance. He is not diaphoretic. HENT: Head: Normocephalic and atraumatic. Right Ear: External ear normal. Left Ear: External ear normal. Eyes: General: No scleral icterus. Extraocular Movements: Extraocular movements intact. Cardiovascular: Rate and Rhythm: Normal rate. Pulmonary: Effort: Pulmonary effort is normal. No respiratory distress. Abdominal: General: There is no distension. Tenderness: There is abdominal tenderness (RUQ tenderness to palpation). There is no guarding or rebound. Skin: General: Skin is warm and dry. Coloration: Skin is not jaundiced. (more content not included)... Normal [facility] OPNOTEon 08-15-2024 OPNOTE CHOLECYSTECTOMY, ROBOTIC, OF ACUTE GANGRENE GALLBLADDER Operative Note Date: 08/15/2024 Location: [facility] OR Name: Naomi Forrester, : 1950, Diagnosis Pre-op Diagnosis * Acute cholecystitis [K81.0] Post-op Diagnosis * Acute cholecystitis [K81.0] * Calculus of bile duct with acute cholecystitis and obstruction [K80.43] * Cholecystitis with gangrene of gallbladder [K82.A1] Procedures * CHOLECYSTECTOMY, ROBOTIC, OF ACUTE GANGRENE GALLBLADDER Surgeons Primary: Bonita Mark MD Procedure Summary Anesthesia: General ASA: III Estimated Blood Loss: 20 mL Total IV Fluids: 1500 mL Drains: Closed/Suction Drain LLQ 19 Fr. (Active) Specimens ID Source Type Tests Collected By Collected At Frozen? Priority Lab ID A Gallbladder Tissue HISTOLOGY - TISSUE EXAM Bonita Mark MD 08/15/[id number] No Description: ACUTE GANGRENOUS CHOLECYSTITIS GALLSTONES AND GALLBLADDER Staff: Credit Union Examiner: Susi Quintanilla RN Relief Credit Union Examiner: Gretel Alonso RN Scrub Person: Joan Hathaway CST Nurse Count Only: Kayla Greer RN Indications: Naomi Forrester is an 73 y.o. male who is having surgery for Acute cholecystitis [K81.0]. Robotic cholecystectomy was offered to the patient, informed consent was obtained. Procedure Details: The patient was seen in the preoperative area. The risks, benefits, complications, treatment options, non-operative alternatives, expected recovery and outcomes were discussed with the patient. The possibilities of reaction to medication, pulmonary aspiration, injury to surrounding structures, bleeding, recurrent infection, the need for additional procedures, failure to diagnose a condition, and creating a complication requiring transfusion or operation were discussed with the patient. The patient concurred with the proposed plan, giving informed consent. The site of surgery was properly noted/marked if necessary per policy. The patient has been actively warmed in preoperative area. Preoperative antibiotics have been ordered and given within 1 hours of incision. Venous thrombosis prophylaxis have been ordered including bilateral sequential compression devices The patient was brought to the operating room, laid on the operating table in supine position. General anesthesia was initiated. 5 mg ICG dye was given through IV. Abdomen was prepped and draped in usual sterile fashion. Time-out was completed. A left flunk 8 mm Optiview trocar was inserted under direct vision. CO2 insufflation was started. Under direct vision, a left paraumbilical 8 mm trocar was inserted. Right paraumbilical and right flunk 8 mm trocars. The gallbladder was visualized as mildly distended but not gangrenous. There were of large amount omentum adhesions completely covered on the gallbladder, signs of cholecystitis. Da Paris Xi was docked. Right paraumbilical trocar was used as camera trocar. Right flunk trocar has bipolar grasper. Left paraumbilical trocar has hook cautery. Left flunk trocar has Hem-O-Rocio. Blunt and hook cautery dissection to take down the omentum from the gallbladder. Gallbladder is gangrenous, contracted. Fundus of gallbladder was retracted superiorly. Infundibulum of the gallbladder was retracted laterally. Blunt and electrocautery dissection was used to take down the adhesions and also infundibular blunt dissection to achieve the critical view of safety. The cystic duct and cystic artery were clearly recognized. Both duct and artery were double clipped proximally, single clipped distally with Hem-O-Rocio and then divided with the scissors. Then the gallbladder was removed from liver bed with electrocautery and put into an EndoCatch bag. Firefly was performed during the surgery to visualized common bile duct. Left flunk trocar was changed to 12 mm trocar. The gallbladder was removed from the 12 mm trocar inside the EndoCatch bag. Suction and irrigation was performed. A 19 Kristopher drain was placed though right flank trocar site and placed under the liver. The 12 mm trocar was removed. The fascia of the 12 mm trocar site was closed by 0-Vicryl Interrupted suture. All the trocars were removed. CO2 was desufflated. Skin was closed by the 4-0 Vicryl subcuticular suture and Dermaband. The operation was completed without complication. I was present during the entire operation. At end of surgery the instrument count and sponge count were correct. Gallbladder was sent to pathology in formalin. Findings: Gallbladder with adhesion, edema, contracted, gangrenous. Complications: None; patient tolerated the procedure well. Disposition: PACU - hemodynamically stable. Condition: stable Bonita Mark Normal [facility] PROTIME-INRon 08-15-2024 INR IN PPP BY COAGULATION ASSAY 1.23 High 0.90-1.10 [facility] Comment on above: Result Comment: ACCC P RECOMMENDED INR FOR WARFARIN THERAPY CONDITION INR PROPHYLAXIS OF VENOUS THROMBOSIS 2-3 (HIGH-RISK SURGERY) TREATMENT OF VENOUS THROMBOSIS 2-3 TREATMENT OF PULMONARY EMBOLISM 2-3 PREVENTION OF SYSTEMIC EMBOLISM: 2-3 ACUTE MYOCARDIAL INFARCTION TISSUE HEART VALVES VALVULAR HEART DISEASE ATRIAL FIBRILLATION RECURRENT SYSTEMIC EMBOLISM MECHANICAL HEART VALVE 2.5-3.5 FROM: ORAL ANTICOAGULANTS. MECHANISM OF ACTION, CLINICAL EFFECTIVENESS, AND OPTIMAL THERAPEUTIC RANGE. CHEST 1995;108:231S-246S. Performed By: #### L [id number] ####[facility] ([employer])[address] [place] [address] PROTHROMBIN TIME (PT) IN PPP BY COAGULATION ASSAY 15.4 Seconds High 12.3-14.8 [facility] Comment on above: Performed By: #### L [id number] ####[facility] ([employer])[address] [place] [address] Urine Cultureon 08-15-2024 Bacteria identified Cx Nom (U) No Growth 2 Days PERFORMED BY: [address] [place] [address] PATHOLOGIST CRANBERRY GROWER MICHELE LOONEY M.D. Normal [facility] Comment on above: Performed By: #### C UU #### [facility] [address] HISTOLOGY - TISSUE EXAMon LAB AP ASR [...] the Clinical Laboratory Improvement Amendments of 1998. [facility] Comment on above: Performed By: #### L [id number] #### [facility] ([facility]) [address] [place] [address] LAB AP CASE REPORT Normal [facility] Comment on above: Result Comment: Surg ical Pathology Case: [id number] Authorizing Provider: Manfred Arciniega MD Collected: 08/01/2024 1301 Ordering Location: [facility] Received: 08/01/2024 [facility] Endoscopy Pathologist: Orin Zamudio MD Specimen: Gastric, r/o adenoma Performed By: #### L [id number] #### [facility] ([facility]) [address] [place] [address] LAB AP CLINICAL INFORMATION Order Diagnoses [facility] Comment on above: Result Comment: R17 - Jaundice [ICD-10-CM] Performed By: #### L [id number] #### [facility] ([facility]) [address] [place] [address] LAB AP DIAGNOSIS COMMENT Normal [facility] Comment on above: Result Comment: Immu nohistochemical stains were performed with adequate controls. No H.pylori organisms are identified on immunostain. Performed By: #### L [id number] #### [facility] ([facility]) [address] [place] [address] LAB AP GROSS DESCRIPTION A. Gastric. [facility] Comment on above: Result Comment: The specimen is received in formalin labeled Naomi Usama and gastric polyp, rule out adenoma. It consists of 3 barr-pink, lobulated pieces of mucosal tissue ranging from 0.2 cm to 1.0 cm in greatest dimension. The specimen is submitted entirely in 1 cassette. Venita Bullock, Pathologists' Continuing Education Dean student Julio Branu, Pathologists' Continuing Education Dean Performed By: #### L [id number] #### [facility] ([facility]) [address] [place] [address] LAB AP MICROSCOPIC DESCRIPTION Microscopic examination performed. [facility] Comment on above: Performed By: #### L [id number] #### [facility] ([facility]AKER) [address] [place] [address] LAB AP REPORT FINAL DIAGNOSIS NARRATIVE [facility] Comment on above: Result Comment: Stom ach, biopsy: - Fundic gland polyp (see comment) Performed By: #### L [id number] #### [facility] ([facility]) [address] [place] [address] HPon 08-01-2024 History Of Present Illness Naomi Forrester is [...] duct stone removal +/- stent placement. Normal [facility] POCT GLUCOSE METER UNSOLICIT ED RESULTSon 08-01-2024 Glucose [Mass/Vol] 91 mg/dL Normal 70-105 [facility] Comment on above: Order Comment: Waive d Testing in the ED is performed under the ED CLIA certificate #[id number]. Result Comment: dhol as Performed By: #### L [id number] #### [facility] ([facility]ER) [address] [place] [address] ALL AMMONIAon 07-31-2024 Ammonia (P) [Mass/Vol] ug/dL Low 11 - 32 umol/L [facility] Interpretation and review of laboratory results Abnormal [facility] CBC WITH AUTO DIFFon BASOPHILS ABSOLUTE AUTO 0 [facility] Basophils/100 WBC (Bld) 0.8 % 0.2 - 2.0 % [facility] Eosinophils/100 WBC (Bld) 2.7 % 0.9 - 7.0 % [facility] Erythrocyte distribution width (RBC) [Ratio] 13.7 % 11.0 - 15.0 % [facility] Hematocrit (Bld) [Volume fraction] 45.4 % 42.0 - 54.0 % [facility] Hemoglobin (Bld) [Mass/Vol] 15.6 g/dL 14.0 - 18.0 g/dL [facility] IMMATURE GRANULOCYTES ABS AUTO 0.01 [facility] Immature granulocytes/100 WBC (Bld) 0.2 % 0.0 - 0.5 % [facility] LYMPHOCYTES ABSOLUTE AUTO 1.2 [facility] Lymphocytes/100 WBC (Bld) 23.9 % 20.5 - 60.0 % [facility] MCH (RBC) [Entitic mass] 30.6 pg 25.9 - 34.0 pg [facility] MCHC (RBC) [Mass/Vol] 34.4 g/dL 29.9 - 35.2 g/dL [facility] MCV (RBC) [Entitic vol] 89.2 fL 80.0 - 94.0 fL [facility] MONOCYTES ABSOLUTE AUTO 0.4 [facility] Monocytes/100 WBC (Bld) 8.6 % 1.7 - 12.0 % [facility] NEUTROPHILS ABSOLUTE AUTO 3.1 [facility] Neutrophils/100 WBC (Bld) 63.8 % 43.0 - 75.0 % [facility] Platelet mean volume (Bld) [Entitic vol] 10.1 fL 9.5 - 13.5 fL [facility] TB EO # 0.1 [facility] TBH PLT 246 [facility] RBC 5.09 [facility] TB WBC 4.9 [facility] CLINISYNC [facility] CCF APTTon 07-31-2024 aPTT Coag (Bld) [Time] 25.6 s [facility] URINALYSIS, WITH MICROS COPICon 07-31-2024 BACTERIA URINE TRACE Abnormal NONE SEEN #/HPF [facility] BILIRUBIN URINE MODERATE Abnormal NEGATIVE [facility] BLOOD URINE Negative NEGATIVE [facility] CAST SEEN? NONE SEEN NONE SEEN #/LPF [facility] Clarity (U) CLEAR CLEAR [facility] Color (U) DK. ORANGE YELLOW [facility] CRYSTALS SEEN? Seen Abnormal None Seen #/HPF [facility] GLUCOSE URINE UA Negative NEGATIVE mg/dL [facility] Interpretation and review of laboratory results Abnormal [facility] Ketones Ql (U) Negative NEGATIVE mg/dL [facility] Leukocyte esterase Test strip Ql (U) Negative NEGATIVE [facility] MUCUS URINE TRACE Abnormal NONE SEEN [facility] NITRITE URINE Negative NEGATIVE [facility] pH (U) 6.0 [pH] 5.0 - 9.0 [facility] PROTEIN URINE Negative NEG/TRACE mg/dL [facility] SPECIFIC GRAVITY URINE 1.025 1.005 - 1.025 [facility] SQUAMOUS EPITHELIAL CELL URINE RARE NONE/RARE #/LPF [facility] TBH CALCIUM OXALATE CRYSTALS URINE RARE [facility] TB RBC 0-2 [facility] TB WBC 0-2 Abnormal NONE SEEN #/HPF [facility] URINE CULTURE INDICATED NO [facility] UROBILINOGEN URINE 2.0 EU/dL Abnormal 0.2 - 1.0 EU/dL [facility]YNC [facility] No Panel Informationon 07-31 [facility] SRMCOH PROTHROMBIN TIME INR W/O COUMon 07-31-2024 PT Coag (PPP) [Time] 10.8 s [facility] TB INR 1.02 [facility] Comment on above: DESIRED INR: 2.0-3.0 CONDITIONS NOT LISTED BELOW 2.5-3.5 FOR PROSTHETIC HEART VALVE REPLACEMENT 2.5-3.5 RECURRENT THROMBOSIS US Abdomenon 07-31-2024 [place] [id number] Ultrasound Report Signed Patient: NAOMI FORRESTER MR#: [id number] : 1950 Acct:[id number] Age/Sex: 73 / M ADM Date: 07/31/24 Loc: LAB Attending Dr: Inez López M.D. Ordering Physician: Inez López M.D. Date of Service: 07/31/24 Procedure(s): US abdomen complete Accession Number(s): [id number] cc: CAROLYN BYRNES ; Inez López M.D. [place] [id number] Patient Name: NAOMI FORRESTER MRN: [facility]:[id number] date: 1950 Sex: M Assigned Patient Location: LAB Current Patient Location: LAB Accession/Order Number: [id number] Exam Date: 07/31/2024 14:08 Report Date: 07/31/2024 [...] Casimiro Gonzáles M.D.07/31/2024 2:19 PM Dictation Location: [place] [address] Electronically authenticated by: [id number] Y Date: 07/31/2024 14:19 Dictated By: Casimiro Gonzáles D.O. Signed By: 07/31/24 1422 DD/ 1419 TD/TT: Unix Architect: [facility] Radiology, Radiologi MD jaylin - 08/01/[address] [address] Ultrasound Report Signed Patient: NAOMI FORRESTER MR#: [id number] : 1950 Acct:[id number] Age/Sex: 73 / M ADM Date: 07/31/24 Loc: LAB Attending Dr: Inez López M.D. Ordering Physician: Inez López M.D. Date of Service: 07/31/24 Procedure(s): US abdomen complete Accession Number(s): [id number] cc: CAROLYN BYRNES ; Inez López M.D. The [place] [id number] Patient Name: NAOMI FORRESTER MRN: [id number] date: 1950 Sex: M Assigned Patient Location: LAB Current Patient Location: LAB Accession/Order Number: [id number] Exam Date: 07/31/2024 14:08 Report Date: 07/31/2024 [...] Casimiro Gonzáles M.D.07/31/2024 2:19 PM Dictation Location: [place] [address] Electronically authenticated by: [id number] Y Date: 07/31/2024 14:19 Dictated By: Casimiro Gonzáles D.O. Signed By: 07/31/24 1422 DD/ 1419 TD/TT: Unix Architect: [facility] Radiology Study observation (narrative) [facility] US AbdomenOrdered By: Radiol ogist Radiology on 07-31-2024 [facility] Work Phone: No Panel Informationon 02-10 [facility] Complete Blood Count with Au to Diffon 09-26-2021 Basophils (Bld) [#/Vol] 0.07 10*3/uL Normal 0.00-0.20 [facility] Specialist Comment on above: Performed By: #### C MP, LIPD, CBCAD #### [facility] Laboratory [address], [place] [id number] Basophils/100 WBC (Bld) 1.2 % Normal [facility] Specialist Comment on above: Performed By: #### C MP, LIPD, CBCAD #### [facility] Laboratory [address], [place] [id number] Eosinophils (Bld) [#/Vol] 0.24 10*3/uL Normal 0.02-0.50 [facility] Specialist Comment on above: Performed By: #### C MP, LIPD, CBCAD #### [facility] Laboratory [address], [place] [id number] Eosinophils/100 WBC (Bld) 4.0 % Normal [facility] Specialist Comment on above: Performed By: #### C MP, LIPD, CBCAD #### [facility] Laboratory [address], [place] [id number] Erythrocyte distribution width (RBC) [Ratio] 13.9 % Normal 11.0-15.0 [place] [employer] Comment on above: Performed By: #### C MP, LIPD, CBCAD #### [facility] [address], [place] [id number] Hematocrit (Bld) [Volume fraction] 46.0 % Normal 38.5-50.0 [facility] [employer] Comment on above: Performed By: #### C MP, LIPD, CBCAD #### [facility] [address], [place] [id number] Hemoglobin (Bld) [Mass/Vol] 15.1 g/dL Normal 13.0-17.1 [facility] [employer] Comment on above: Performed By: #### C MP, LIPD, CBCAD #### [facility] [address], [place] [id number] Lymphocytes (Bld) [#/Vol] 2.1 10*3/uL Normal 0.9-3.9 [facility] [employer] Comment on above: Performed By: #### C MP, LIPD, CBCAD #### [facility] [address], [place] [id number] Lymphocytes/100 WBC (Bld) 34.8 % Normal [facility] [employer] Comment on above: Performed By: #### C MP, LIPD, CBCAD #### [facility] [address], [place] [id number] MCH (RBC) [Entitic mass] 30.1 pg Normal 27.0-33.0 [facility] [employer] Comment on above: Performed By: #### C MP, LIPD, CBCAD #### [facility] [address], [place] [id number] MCHC (RBC) [Mass/Vol] 32.8 g/dL Normal 32.0-36.0 [facility] [employer] Comment on above: Performed By: #### C MP, LIPD, CBCAD #### [facility] [address], [place] [id number] MCV (RBC) [Entitic vol] 92 fL Normal 80-100 [facility] [employer] Comment on above: Performed By: #### C MP, LIPD, CBCAD #### [facility] [address], [place] [id number] Monocytes (Bld) [#/Vol] 0.6 10*3/uL Normal 0.2-0.9 [facility] Comment on above: Performed By: #### C MP, LIPD, CBCAD #### [facility] [address], [place] [id number] Monocytes/100 WBC (Bld) 9.4 % Normal [facility] Comment on above: Performed By: #### C MP, LIPD, CBCAD #### [facility] [address], [place] [id number] Neutrophils (Bld) [#/Vol] 3.0 10*3/uL Normal 1.5-7.8 [facility] Specialist Comment on above: Performed By: #### C MP LIPD, CBCAD #### [facility] [address], [place] [id number] Neutrophils/100 WBC (Bld) 50.3 % Normal [facility] Specialist Comment on above: Performed By: #### C MP, LIPD, CBCAD #### [facility] [address], [place] [id number] Platelet mean volume (Bld) [Entitic vol] 11.00 fL Normal 7.50-12.50 [facility] Specialist Comment on above: Performed By: #### C MP LIPD, CBCAD #### [facility] [address], [place] [id number] Platelets (Bld) [#/Vol] 246 10*3/uL Normal 140-400 [facility] Specialist Comment on above: Performed By: #### C MP, LIPD, CBCAD #### [facility] [address], [place] [id number] RBC (Bld) [#/Vol] 5.02 10*6/uL Normal 4.20-5.80 [facility] Specialist Comment on above: Performed By: #### C MP, LIPD, CBCAD #### [facility] [address], [place] [id number] RDW-SD 47.2 fL Normal 37.0-50.0 [facility] Specialist Comment on above: Performed By: #### C MP, LIPD, CBCAD #### [facility] [address], [place] [id number] WBC (Bld) [#/Vol] 6.0 10*3/uL Normal 3.8-11.0 Jason [facility] [employer] Comment on above: Performed By: #### C MP, LIPD, CBCAD #### [facility] [address], [place] [id number] Comprehensive Metabolic Pane tony 09-26-2021 Albumin [Mass/Vol] 4.3 g/dL Normal 3.6-5.1 [facility] Comment on above: Performed By: #### C MP, LIPD, CBCAD #### [facility] [address], [place] [id number] Albumin/Globulin [Mass ratio] 1.4 {ratio} Normal 1.0-2.5 [facility] Comment on above: Performed By: #### C MP, LIPD, CBCAD #### [facility] [address], [place] [id number] ALP [Catalytic activity/Vol] 69 U/L Normal 40-129 [facility] Specialist Comment on above: Performed By: #### C MP, LIPD, CBCAD #### [facility] [address], [place] [id number] ALT [Catalytic activity/Vol] 26 U/L Normal 9-46 [facility] Specialist Comment on above: Result Comment: 04/06 Female reference range changed. Performed By: #### C MP, LIPD, CBCAD #### [facility] [address], [place] [id number] Anion gap [Moles/Vol] 16 mmol/L Normal 12-20 [facility] Specialist Comment on above: Result Comment: Effe ctive 05/12/2019 reference range changed. Performed By: #### C MP, LIPD, CBCAD #### [facility] [address], [place] [id number] AST [Catalytic activity/Vol] 24 U/L Normal 10-40 [facility] Specialist Comment on above: Performed By: #### C MP, LIPD, CBCAD #### [facility] [address], [place] [id number] Bilirubin [Mass/Vol] 0.32 mg/dL Normal 0.30-1.20 [facility] Specialist Comment on above: Performed By: #### C MP, LIPD, CBCAD #### [facility] [address], [place] [id number] BUN/CREA 31 Ratio High 6-22 [facility] Comment on above: Performed By: #### C MP, LIPD, CBCAD #### [facility] [address], [place] [id number] Calcium [Mass/Vol] 9.6 mg/dL Normal 8.6-10.2 [facility] Comment on above: Performed By: #### C MP, LIPD, CBCAD #### [facility] [address], [place] [id number] Chloride [Moles/Vol] 105 mmol/L Normal 98-107 [facility] Comment on above: Performed By: #### C MP, LIPD, CBCAD #### [facility] [address], [place] [id number] CO2 [Moles/Vol] 24 mmol/L Normal 20-31 [facility] Comment on above: Performed By: #### C MP, LIPD, CBCAD #### [facility] [address], [place] [id number] Creatinine [Mass/Vol] 0.9 mg/dL Normal 0.7-1.4 [facility] Specialist Comment on above: Performed By: #### C MP, LIPD, CBCAD #### [facility] [address], [place] [id number] eGFRAA 105 mL/min/1.73m2 Normal >60 [facility] Comment on above: Performed By: #### C MP, LIPD, CBCAD #### [facility] [address], [place] [id number] eGFRNAA 87 mL/min/1.73m2 Normal >60 [facility] Specialist Comment on above: Performed By: #### C MP, LIPD, CBCAD #### [facility] [address], [place] [id number] Globulin (S) [Mass/Vol] 3.1 g/dL Normal 1.9-3.7 [place] [employer] Comment on above: Performed By: #### C NATALIYA LIPD, CBCAD #### [facility] [address], [place] [id number] Glucose [Mass/Vol] 113 mg/dL High 65-99 Jason whaley [place] [employer] Comment on above: Result Comment: For FASTING Glucose --- ADA reference ranges: Normal 65-99 mg/dl Prediabetes 100-125 Diabetes >/= 126 Performed By: #### C NATALIYA LIPD, CBCAD #### [facility] [address], [place] [id number] Potassium [Moles/Vol] 4.4 mmol/L Normal 3.5-5.5 [facility] [employer] Comment on above: Performed By: #### C NATALIYA LIPD, CBCAD #### [facility] [address], [place] [id number] Protein [Mass/Vol] 7.4 g/dL Normal 6.1-8.1 Jason rn [place] [employer] Comment on above: Performed By: #### C NATALIYA LIPD, CBCAD #### [facility] [address], [place] [id number] Sodium [Moles/Vol] 141 mmol/L Normal 135-146 Jason rn [place] [employer] Comment on above: Performed By: #### C NATALIYA LIPD, CBCAD #### [facility] [address], [place] [id number] Urea nitrogen [Mass/Vol] 27 mg/dL High 7-25 [facility] [employer] Comment on above: Performed By: #### C NATALIYA LIPD, CBCAD #### [facility] [address], [place] [id number] Lipid Panelon 09-26-2021 Cholesterol [Mass/Vol] 212 mg/dL High 125-200 [facility] [employer] Comment on above: Result Comment: Low risk < 200mg/dL Borderline risk 201-239 mg/dl High risk > or equal to 240 Performed By: #### C NATALIYA LIPD, CBCAD #### [facility] [address], [place] [id number] Cholesterol in HDL [Mass/Vol] 54 mg/dL Normal >40 [facility] [employer] Comment on above: Result Comment: High Cardiovascular Risk HDL <40 mg/dL Low Cardiovascular Risk HDL > or equal to 60 mg/dl Performed By: #### C NATALIYA, LIPD, CBCAD #### [facility] [address], [place] [id number] Cholesterol in LDL [Mass/Vol] 128 mg/dL Normal [facility] Specialist Comment on above: Result Comment: LDL ATP III CLASSIFICATION LDL less than 100 mg/dl Optimal LDL 100-129 mg/dl Near or above optimal LDL 130-159 Borderline high LDL 160-189 High LDL greater than 189 mg/dl Very High Performed By: #### C NATALIYA, LIPD, CBCAD #### [facility] [address], [place] [id number] Cholesterol in VLDL [Mass/Vol] 30 mg/dL Normal [facility] [employer] Comment on above: Performed By: #### C NATALIYA, LIPD, CBCAD #### [facility] [address], [place] [id number] Cholesterol.total/C holesterol in HDL [Mass ratio] 4 {ratio} Normal [facility] [employer] Comment on above: Performed By: #### C NATALIYA, LIPD, CBCAD #### [facility] [address], [place] [id number] Triglyceride [Mass/Vol] 150 mg/dL Normal 30-150 [facility] [employer] Comment on above: Result Comment: TRIG ATPIII CLASSIFICATIONS TRIG less than 150 mg/dl Normal TRIG 150-199 mg/dl Borderline High TRIG 200-500 mg/dl High TRIG greather than 500 mg/dl Very High Performed By: #### C NATALIYA, LIPD, CBCAD #### [facility] [address], [place] [id number] Prostatic Specific Antigen, Totalon 09-26-2021 TPSA 1.920 ng/mL Normal <4.000 [facility] [employer] Comment on above: Result Comment: PSA Test Method: ECLIA/Kwan e 601 Performed By: #### P SA #### [facility] [address], [place] [id number] Encounters Encounter Date Encounter Type Care Provider Facility Start: 09-11-2024 End: 09-11-2024 virgilio ARCINIEGA [facility] Start: 09-11-2024 End: 09-11-2024 ambulatory MANFRED [facility] Start: 09-08-2024 End: 09-08-2024 Martin Eaton MD Work Phone: [facility] Start: 09-08-2024 End: 09-08-2024 Bamboo flowselvi Eaton MD Work Phone: [facility] Start: 09-08-2024 End: 09-08-2024 Office outpatient visit 15 minutes Lawrence Eaton MD Work Phone: [facility] Comment on above: Melanocytic nevus of trunk (Primary Dx); Lentigines; History of basal cell carcinoma; Actinic keratosis Start: 09-08-2024 End: 09-08-2024 ambulatory LAWRENCE EATON Not Available Start: 08-27-2024 End: 08-27-2024 ambulatory BONITA MARK [facility] Start: 08-15-2024 End: 08-16-2024 Evaluation and management of inpatient [facility] Start: 08-15-2024 End: 08-15-2024 Clinisync Result Encounter Generic External Data Provider [facility] Unsolicited Start: 08-15-2024 End: 08-15-2024 Clinisync Result Encounter Generic External Data Provider [facility] Unsolicited Start: 08-15-2024 End: 08-15-2024 ambulatory Casimiro Suazo [facility] Work Phone: Start: 08-15-2024 End: 08-15-2024 Departed Referred Casimiro Suazo DO Work Phone: [facility] Start: 08-01-2024 End: 08-01-2024 ambulatory MANFRED [facility] Start: 08-01-2024 End: 08-01-2024 ambulatory NEIL ROUSE [facility] Start: 07-31-2024 End: 08-01-2024 Clinisync Result Encounter Generic External Data Provider [facility] Department Unsolicited Start: 07-31-2024 End: 08-01-2024 Clinisync Result Encounter Generic External Data Provider [facility] Unsolicited Start: 03-04-2024 End: 03-04-2024 ambulatory Deborah Tal Lemosnloida Facility:[facility] Start: 03-04-2024 End: 03-04-2024 Patient encounter procedure Deborah Fontana [facility] Start: 02-11-2024 End: 02-11-2024 Bamboo flowsheet Lawrence Eaton MD Work Phone: [facility] Start: 02-11-2024 End: 02-11-2024 Bamboo flowsheet Lawrence Eaton MD Work Phone: [facility] Start: 02-11-2024 End: 02-11-2024 Office outpatient visit 15 minutes Lawrence Eaton MD Work Phone: [facility] Comment on above: Seborrheic keratosis (Primary Dx); Lentigines; History of basal cell carcinoma; History of SCC (squamous cell carcinoma) of skin; Actinic keratosis Start: 02-11-2024 End: 02-11-2024 ambulatory LAWRENCE EATON Not Available Start: 03-12-2023 ambulatory Deborah Fontana Facility: [facility] [place] Start: 05-16-2022 End: 07-04-2022 ambulatory SUSI MORALES Facility:[facility] Start: 03-14-2022 End: 03-15-2022 ambulatory SUSI MORALES Facility:[facility] Start: 02-14-2022 End: 02-15-[address] INEZ LÓPEZ . Facility:[facility] Start: 09-20-2021 End: 09-21-[address] INEZ LÓPEZ . Facility:[facility] Start: 11-09-2006 ambulatory [facility] Work Phone: Orthopaedics Start: 11-09-2006 End: 11-09-2006 Patient encounter procedure [facility] Work Phone: [facility] Procedures Date Procedure Procedure Detail Performing Clinician Start: 09-08-2024 CRYOTHERAPY SKIN LESION Lawrence Eaton MD Work Phone: Start: 08-15-2024 URINE CULTURE - [facility] Ge neric External Data Provider Start: 07-31-2024 Us abdominal real ti me [...] Data Provider Start: 02-11-2024 CRYOTHERAPY SKIN LESION Lawrence Eaton MD Work Phone: Plan of Treatment Date Care Activity Detail Author Start: 03-17-2025 End: 03-17-2025 Patient encounter procedure 03/17/2025 1:30 PM EST Office Visit [facility] [address] [place] [address] Lawrence Eaton MD [address] [place], [place] [phone] [facility] Start: 01-05-2025 Influenza vaccination Influenz a Vaccine (Season Ended) [facility] Start: 09-08-2024 End: 09-08-2024 Patient encounter procedure [facility] Comment on above: Arrived Start: 08-15-2024 Bacteria identified in Urine by Culture Urine Culture [facility] Start: 08-15-2024 Urine culture [facility] Start: 08-11-2024 End: 08-11-2024 Patient encounter procedure 08/11/2024 1:00 PM EDT Office Visit [facility] [address] [place] [address] Lawrence Eaton MD [address] [place], [place] [phone] [facility] Start: 02-11-2024 End: 02-11-2024 Patient encounter procedure 02/11/2024 1:00 PM EDT Office Visit [facility] [address] [place] [phone] Lawrence Eaton MD [address] [place] [address] Arrived [facility] Comment on above: Arrived Start: 01-06-2024 Influenza vaccination Influenza Vacc ine (#1) [facility] Start: 05-23-2022 Screening for malign ant neoplasm of colon [facility] Start: 09-15-2021 Pneumococcal Vaccine : 65+ Years (2 of 2 - PCV) Pneumococcal Vaccine: 65+ Years (2 of 2 - PCV) [facility] Start: 01-05-2021 Influenza vaccination INFLUENZ A (Season Ended) [facility] Start: 2017 ADVANCE DIRECTIVE DISCUSSION ADVANCE DIRECTIVE DISCUSSION [facility] Start: 2017 PNEUMOVAX AGE 65 AND OVER WITH 5YR LOOKBACK (#1) PNEUMOVAX AGE 65 AND OVER WITH 5YR LOOKBACK (#1) [facility] Start: 08-31-2007 PROSTATE CANCER SCREENING DISCUSSION PROSTATE CANCER SCREENING DISCUSSION [facility] Start: 2002 Screening for malign ant neoplasm of colon [facility] Start: 2002 SHINGRIX VACCINE (1 of 2) SHINGRIX VACCINE (1 of 2) [facility] Start: 1997 DIABETES SCREEN DIABETES SCREEN [facility] Start: 08-31-1987 LIPID SCREEN LIPID SCREEN [facility] Start: 08-31-1971 Urine microalbumin profile DTAP,TDAP,TD (1 - Tdap) [facility] Start: 1970 HEPATITIS C SCREENING HEPATITIS C JET GRANT [facility] Start: 1964 Adult depression screening assessment DEPRESSION SCREENING [facility] Start: 1964 COVID-19 VACCINE (1) COVID-19 VACCIN E (1) [facility] Start: 1950 Medicare Annual Wellness (AWV) Medicare Annual Wellness (AWV) [facility] Start: 1950 Screening for malign ant neoplasm of colon [facility] URINE CULTURE - [facility] URINE CULTU RE - [facility] Lab Routine 08/15/2024 8:30 AM EDT [facility] Immunizations Immunization Date Immunization Notes Care Provider Violeta olu 09-15-2020 pneumococcal polysaccharide vaccine, 23 valent Lawrence Eaton MD Work Phone: [facility] Payers Date Payer Category Payer Medicare [employer] MEDICARE REPLACEMENT [id number] 2022-Present [address] [address] [place] [address] [id number] 2022 Medicare (Managed Care) [facility] MEDICARE [id number] 2022 Private Health Insurance [id number] 2006 Unknown [employer]UE CARD PPO [id number] 2006-2008 PPO [id number] 1959 Medicare [id number] 1959 Private Health Insurance [place] RZYWJ [id number] 1959 Self-pay [id number] 1950 Unknown [id number] 1950 Unknown [id number] 1950 Unknown [id number] 1950 Unknown [id number] 1950 Unknown [id number] Unknown [id number] Unknown [id number] Unknown [id number] Unknown [id number] Social History Date Type Detail [facility] Start: 1950 Sex Assigned At Male [facility] Start: 1950 Sex Assigned At Not on file [facility] Start: 10-12-2018 End: 09-07-2022 Tobacco smoking status COIS Never smoked tobacco [facility] Start: 09-07-2022 Tobacco use and exposure Smokeless tobacco non-user [facility] Start: 08-14-2023 End: 09-08-2024 Alcoholic beverage intake Current drinker of alcohol (finding) [facility] Start: 08-14-2023 End: 11-26-2023 Alcoholic beverage intake [facility] Start: 08-14-2023 End: 11-26-2023 Tobacco use panel [facility] Start: 09-07-2022 Alcohol Comment coffee and sod a 2-3 cups per day [facility] Tobacco smoking status No Smokin g Status Entered [facility] [employer] Start: 08-16-2024 Sex Male (finding) [facility] Goals Date Patient Goal Desired Activity /State Clinical Notes 11-09-2006 to 09-11-2024 Lawrence Eaton MD - 09/08/2024 1:05 PM EDTEamando Eaton MD - 02/11/2024 1:00 PM EDT11/09/2006 5:39 PM EDT Note Date & Type Note Facility 09-11-2024 Note Patient: Naomi mcleod Procedure Summary Date: 09/11/24 Room / Location: [facility] Endoscopy Anesthesia Start: 1104 Anesthesia Stop: 1201 Procedure: ENDOSCOPIC RETROGRADE CHOLANGIOPANCREATOGRAPHY Diagnosis: Common bile duct calculi Scheduled Providers: Manfred Arciniega MD; BRITTA Connell; Prabhjot Bhandari MD Responsible Provider: David Mann MD Anesthesia Type: general ASA Status: 2 Anesthesia Type: general Vitals Value Taken Time BP 155/84 09/11/24 1157 Temp 36.2 ???C (97.2 ???F) 09/11/24 1157 Pulse 70 09/11/24 1157 Resp 15 09/11/24 1157 SpO2 100 % 09/11/24 1157 Anesthesia Post Evaluation Patient location during evaluation: PACU Patient participation: complete - patient participated Level of consciousness: awake Pain score: 0 Pain management: adequate Airway patency: patent Cardiovascular status: stable Respiratory status: acceptable Hydration status: balanced Patient is hemodynamically stable and is able to be discharged from PACU per anesthesia protocol. No notable events documented. [facility] 09-11-2024 Note Airway Date/Time: 09/11/2024 11:18 AM Urgency: elective Airway not difficult General Information and Staff Patient location during procedure: OR Anesthesiologist: David Mann MD Performed: anesthesiologist Indications and Patient Condition Indications for airway management: anesthesia and airway protection Spontaneous Ventilation: absent Sedation level: deep Preoxygenated: yes Patient position: sniffing Mask difficulty assessment: 1 - vent by mask Planned trial extubation Final Airway Details Final airway type: endotracheal airway Successful airway: ETT Cuffed: yes Successful intubation technique: video laryngoscopy Blade size: #3 ETT size (mm): 8.0 Inital cuff pressure (cm H2O): 23 [facility] 09-11-2024 Note Patient: Naomi mcleod Procedure Information Date/Time: 09/11/24 1030 Scheduled providers: Manfred Arciniega MD; BRITTA Connell; Prabhjot Bhandari MD Procedure: ENDOSCOPIC RETROGRADE CHOLANGIOPANCREATOGRAPHY Location: [facility] Endoscopy Relevant Problems Anesthesia (-) History of anesthesia complications Past Medical History: Diagnosis Date Asthma BPH (benign prostatic hyperplasia) Carcinoma, basal cell, skin Common bile duct calculi Elevated PSA GERD (gastroesophageal reflux disease) Hyperlipidemia Obstructive jaundice (CMS/HCC) Past Surgical History: Procedure Laterality Date CHOLECYSTECTOMY 08/15/2024 ERCP 08/01/2024 KNEE ARTHROSCOPY W/ ARTHROTOMY Bilateral PLANTAR FASCIA RELEASE Left SEPTOPLASTY 10/29/2009 Social History Tobacco Use Smoking status: Never Smokeless tobacco: Never Vaping Use Vaping status: Never Used Substance Use Topics Alcohol use: Yes Alcohol/week: 3.0 standard drinks of alcohol Types: 3 Standard drinks or equivalent per week Comment: weekly Drug use: Never Labs Lab Results Component Value Date WBC 8.31 08/16/2024 HGB 11.1 (L) 08/16/2024 HCT 33.6 (L) 08/16/2024 PLT 278 08/16/2024 Lab Results Component Value Date NA 134 (L) 08/16/2024 K 4.5 08/16/2024 CO2 28 08/16/2024 CL 102 08/16/2024 BUN 18 08/16/2024 CREATININE 0.81 08/16/2024 GLUCOSE 214 (H) 08/16/2024 CALCIUM 8.8 08/16/2024 Lab Results Component Value Date PT 15.4 (H) 08/15/2024 INR 1.23 (H) 08/15/2024 No echocardiogram results found for the past 12 months Clinical information reviewed: Allergies Meds Med Hx Surg Hx Fam Hx Physical Exam Airway Mallampati: II TM distance: >3 FB Neck ROM: full Cardiovascular Rhythm: regular Rate: normal Dental - normal exam Pulmonary Breath sounds clear to auscultation Abdominal - normal exam Anesthesia Plan ASA 2 general (Patient chart [...] Note was inputted later. ) intravenous induction Postoperative administration of opioids is intended. Anesthetic plan and risks discussed with patient. Use of blood products discussed with who consented to blood products. Plan discussed with CAA. Additional Equipment Requests [facility] 09-08-2024 History of Present illness Narrative Skin Check Location: Patient requests a skin examination from the waist up Dermatologic history: history of Actinic Keratosis, history of Basal Cell Carcinoma, history of Squamous Cell Carcinoma Last visit: 6 months ago All pertinent medical history, medications, and allergies were reviewed. General Exam: alert, oriented to person, place, and time, normal affect, well appearing Patient is barr Unaccompanied A complete skin exam was offered, pt declined. Areas not examined despite medical recommendation: From the waist down Scalp, Examined , exam limited by hair Head, Face Examined , Exam limited by carroll and mustache Neck Examined Chest Examined small tattoo left chest Back Examined Abdomen Examined Right arm Examined Left arm Examined Hands Examined Digits,nails: Examined Lymphatics: Not examined Skin Exam 1. MELANOCYTIC NEVUS OF TRUNK Generalized Scattered benign appearing, regular brown to light brown melanocytic papules and macules with similar morphology Counseled regarding these benign growths. Rarely, a nevus can develop into malignant melanoma, so any changing nevi should be promptly re-evaluated. 2. LENTIGINES (2) Head - Anterior (Face), Neck - Posterior Scattered barr macules in sun-exposed areas. The patient was informed that lentigines are benign pigmented lesions that occur on sun-exposed and sun-damaged skin. No treatment is necessary. Recommended regular use of broad spectrum sunscreen SPF 30 or higher 3. HISTORY OF BASAL CELL CARCINOMA Left chest No evidence of recurrence at BCC scar. [...] or around the previous surgery scar. 4. ACTINIC KERATOSIS (6) Left Buccal Cheek, Left Forehead, Left Parotid Area, Mid Parietal Scalp (2), Right Parotid Area Erythematous scaly papules Patient was counseled regarding [...] limited to risks of scarring, darker or fisheries inspector pigmentary changes, recurrence, incomplete removal and infection. Method: Liquid nitrogen was used to treat the lesion(s) with two 5-10 second freeze-thaw cycles. Eyes were shielded using cotton pad during procedure Number of lesions treated: 6 Post-procedure instructions: Instructions were given verbally. The office will be contacted if the lesion fails to resolve despite treatment, or if a side effect develops such as abnormal crusting, scabbing, redness or tenderness Cryotherapy, skin lesion - Left Buccal Cheek, Left Forehead, Left Parotid Area, Mid Parietal Scalp (2), Right Parotid Area Next Visit: 6 months documented in this encounter [facility] 08-27-2024 Note Subjective Patient ID: Naomi Forrester is a 73 y.o. male who presents for Post-op (Patient is here for a post-op appointment, s/p robotic cholecystectomy 08/15/2024 - acute gangrene gallbladder.). HPI He is tolerating to low-fat diet, normal bowel movement, without fever or chills. Review of Systems Constitutional: Negative. HENT: Negative. Eyes: Negative. Respiratory: Negative. Cardiovascular: Negative. Gastrointestinal: Positive for abdominal pain. Endocrine: Negative. Genitourinary: Negative. Musculoskeletal: Negative. Skin: Positive for wound. Allergic/Immunologic: Negative. Neurological: Negative. Hematological: Bruises/bleeds easily. Objective Visit Vitals BP 150/75 (BP Location: Left arm, Patient Position: Sitting) Pulse 68 Temp 36.6 ???C (97.8 ???F) Resp 16 Physical Exam HENT: Head: Atraumatic. Cardiovascular: Rate and Rhythm: Normal rate. Pulmonary: Effort: Pulmonary effort is normal. Abdominal: General: Abdomen is flat. Palpations: Abdomen is soft. Comments: Incisions are dry, clean, intact. Musculoskeletal: Cervical back: Neck supple. Neurological: Mental Status: He is alert and oriented to person, place, and time. Final Diagnosis A. Gallbladder, cholecystectomy: - Acute gangrenous cholecystitis. at 1543 Assessment/Plan Postoperative visit Low-fat diet No diagnosis found. No orders of the defined types were placed in this encounter. No results found for this or any previous visit (from the past 36 hour(s)). No follow-ups on file. [facility] 08-16-2024 Note ---- Attestation signed by Bonita Mark MD at 08/18/2024 6:25 PM Attending Physician Statement I have discussed the case, including pertinent history and exam findings with Dr. Aden Maguire , surgical coder and have personally seen the patient. I agree with the assessment, plan and orders as documented. [phone] pager [phone] phone ---- [facility] General Surgery DAILY PROGRESS NOTE Subjective No acute events overnight, pain well controlled, tolerating diet Objective Vitals: Vitals: 08/16/24 0607 BP: 128/79 Pulse: 66 Resp: Temp: 36.5 ???C (97.7 ???F) SpO2: 97% I/O last 3 completed shifts: In: 250 (2.8 mL/kg) [IV Piggyback:250] Out: 70 (0.8 mL/kg) [Urine:50 (0 mL/kg/hr); Blood:20] Weight: 88.5 kg I/O this shift: In: 2018.3 [P.O.:250; I.V.:1768.3] Out: - Physical Exam General Appearance: Awake, Alert & Oriented x3, No Acute Distress Neck: Trachea Midline, No jugular venous distension Pulmonary: Unlabored breathing. No expiratory wheeze. Cardiac: Regular rate Abdomen: soft, appropriately tender around incisions Extremity: No edema Bilateral Upper and lower Extremities Incisions: clean and dry Lines, Drains, Tubes: IRVIN drain with SS drainage Labs: Results from last 7 days Lab Units 08/16/24 0754 08/15/24 1545 WBC AUTO 10*3/uL 8.31 11.16* HEMOGLOBIN g/dL 11.1* 11.7* HEMATOCRIT % 33.6* 35.7* PLATELETS AUTO 10*3/uL 278 269 Results from last 7 days Lab Units 08/16/24 0754 08/15/24 1545 SODIUM mmol/L 134* 136 POTASSIUM mmol/L 4.5 4.0 CO2 mmol/L 28 28 BUN mg/dL 18 14 CREATININE mg/dL 0.81 0.83 Results from last 7 days Lab Units 08/15/24 1545 INR 1.23* Medications: acetaminophen, 1,000 mg, oral, q6h cefTRIAXone, 2 g, intravenous, q24h enoxaparin, 40 mg, subcutaneous, q24h ABEBA metroNIDAZOLE, 500 mg, intravenous, q12h pantoprazole, 40 mg, oral, Daily lactated Ringer's, 100 mL/hr, Last Rate: Stopped (08/16/24 1100) Imaging: ECG 12 lead Normal sinus rhythm Normal ECG No previous ECGs available Assessment/Plan Naomi Forrester is a 73 y.o. male whom IS s/p robotic cholecystectomy Reg diet Will discharge today Griffin Maguire MD General Surgery Resident, PGY-3 [facility] 08-15-2024 Note Patient: Naomi mcleod Procedure Summary Date: 08/15/24 Room / Location: [facility] OPERATING ROOM 13 / [facility] Operating Room Anesthesia Start: 1920 Anesthesia Stop: 2207 Procedure: CHOLECYSTECTOMY, ROBOTIC, OF ACUTE GANGRENE GALLBLADDER Diagnosis: Acute cholecystitis Calculus of bile duct with acute cholecystitis and obstruction Cholecystitis with gangrene of gallbladder (Acute cholecystitis [K81.0]) Surgeons: Bonita Mark MD Responsible Provider: Manfred Kiran MD Anesthesia Type: general ASA Status: 3 Anesthesia Type: general Vitals Value Taken Time BP 112/62 08/15/242217 Temp 36.6 ???C (97.9 ???F) 08/15/242202 Pulse 72 08/15/242217 Resp 18 08/15/242217 SpO2 98 % 08/15/242217 Anesthesia Post Evaluation Patient location during evaluation: PACU Patient participation: complete - patient participated Level of consciousness: awake and alert Pain score: 0 Pain management: adequate Airway patency: patent Cardiovascular status: acceptable Respiratory status: room air and acceptable Hydration status: acceptable Patient is hemodynamically stable and is able to be discharged from PACU per anesthesia protocol. There were no known notable events for this encounter. [facility] 08-15-2024 Note Airway Date/Time: 08/15/2024 7:31 PM Urgency: elective Airway not difficult General Information and Staff Patient location during procedure: OR Anesthesiologist: Manfred Kiran MD Resident/GREENSKEEPER SUPERVISOR/CAA: BRITTA Tse Performed: resident/GREENSKEEPER SUPERVISOR/CAA Indications and Patient Condition Indications for airway management: anesthesia Spontaneous Ventilation: absent Sedation level: deep Preoxygenated: yes Patient position: sniffing Mask difficulty assessment: 1 - vent by mask Final Airway Details Final airway type: endotracheal airway Successful airway: ETT Cuffed: yes Successful intubation technique: video laryngoscopy Endotracheal tube insertion site: oral Blade: Rodriguez Blade size: #3 ETT size (mm): 7.5 Cormack-Lehane Classification: grade I - full view of glottis Placement verified by: chest auscultation and capnometry Cuff volume (mL): 9 Measured from: lips ETT to lips (cm): 22 Number of attempts at approach: 1 Number of other approaches attempted: 0 [facility] 08-15-2024 Note Patient: Naomi mcleod Procedure Information Date/Time: 08/15/241842 Procedure: CHOLECYSTECTOMY, ROBOTIC Location: [facility] OPERATING ROOM 13 / [facility] Operating Room Surgeons: Bonita Mark MD Relevant Problems No relevant active problems Clinical information reviewed: Tobacco Allergies Meds Problems Med Hx Surg Hx Fam Hx Physical Exam Airway Mallampati: II TM distance: >3 FB Neck ROM: full Cardiovascular Rhythm: regular Rate: normal Dental - normal exam Pulmonary - normal exam Abdominal Abdomen: soft Anesthesia Plan ASA 3 general intravenous induction Anesthetic plan and risks discussed with patient. Use of blood products discussed with patient who. Additional Equipment Requests [facility] 08-02-2024 Note Patient: Naomi mcleod Procedure Summary Date: 08/01/24 Room / Location: [facility] Endoscopy Anesthesia Start: 1238 Anesthesia Stop: 1357 [...] per anesthesia protocol. No notable events documented. [facility] 08-01-2024 Note Patient: Naomi mcleod Procedure Information Anesthesia Start Date/Time: 08/01/24 1238 Scheduled providers: Neil Rouse MD; BRITTA Jane; Manfred Arciniega MD Procedures: ENDOSCOPIC RETROGRADE CHOLANGIOPANCREATOGRAPHY ENDOSCOPIC ULTRASOUND (UPPER) Location: [facility] Endoscopy Relevant Problems Anesthesia (-) History of [...] Plan discussed with CAA. Additional Equipment Requests [facility] 08-01-2024 Note Airway Date/Time: 08/01/2024 12:48 PM Urgency: elective Airway not difficult General Information and Staff Patient location during procedure: OR Anesthesiologist: Neil Rouse MD Resident/GREENSKEEPER SUPERVISOR/CAA: BRITTA Mo Performed: resident/GREENSKEEPER SUPERVISOR/BRITTA Indications and Patient Condition Indications for airway [...] 4cc of 4% Lidocaine administered via LTA [facility] 02-11-2024 History of Present illness Narrative [...] Ear, Right Forehead, Right Parotid Area, Right Anabaptist (2), Right Zygomatic Area (3) Erythematous scaly [...] limited to risks of scarring, darker or fisheries inspector pigmentary changes, recurrence, incomplete removal and infection. [...] Ear, Right Forehead, Right Parotid Area, Right Anabaptist (2), Right Zygomatic Area (3) Next Visit: 6 months skin exam documented in this encounter [facility] 03-15-2022 Note PROCEDURE: XR ANKLE LT MIN 3 V COMPARISON: 07/01/2019 foot x-ray HISTORY: Pain of left ankle joint FINDINGS: BONES:No acute fracture or dislocation. Mild degenerative changes. Moderate enthesopathic spurring plantar calcaneus SOFT TISSUES:Negative. No visible soft tissue swelling. EFFUSION:None visible. OTHER: Calcification of the Achilles tendon IMPRESSION: Achilles calcific tendinosis Degenerative changes Electronically authenticated by: HAN ESPITIA Date: 2022-03-15 08:54 [facility] 11-09-2006 History of Present illness Narrative PT ASSESSMENT - CASTING ROOM Naomi presents for cast removal and Application of Brace. Applied night splint and pneumatic aircast walker to left foot Patient has been instructed in Care and proper application of brace.. Darian Vergara Cast Beeper: [id number] documented in this encounter [facility] Evaluation + Plan note No data available for this section [facility] Evaluation note Diagnosis Plantar fascial fibromatosis- Primary [facility] Diagnosis Seborrheic keratosis- Primary Lentigines History of basal cell carcinoma Personal history of other malignant neoplasm of skin History of SCC (squamous cell carcinoma) of skin Personal history of other malignant neoplasm of skin Actinic keratosis [facility] note[facility] information [facility] Work Phone: Evaluation note* Diagnosis Melanocytic nevus of trunk- Primary Benign neoplasm of skin of trunk, except scrotum Lentigines History of basal cell carcinoma Personal history of other malignant neoplasm of skin Actinic keratosis [facility] No data available for this section [facility] progress note No data available for this section [facility] Assessments No Assessments Information Available Summary Purpose Family History No Family History Records FoundNo Family History Records Found No data available for this section No Family History Records FoundNo Family History Records FoundNo Family History Records FoundNo Family History Records Found Advance Directives No Advanced Directives Records Found Advance Directive Response Recorded Date/ Time Advance Directives No June 2:13pm Additional Source Comments Source Comments (unrecognize d section and content) In the event this informatio n is protected by the Federal Confidentiality of Alcohol and Drug Abuse Patient Records regulations: The Federal rules restrict any use of the information to criminally investigate or prosecute any alcohol or drug abuse patient.[facility] (unrecognized sect ion and content) No Status Records FoundNo Status Records FoundNo Status Records FoundNo Status Records FoundNo Status Records FoundNo Status Records Found INFORMATION SOURCE (unrecogn ized section and content) DATE CREATED AUTHOR 09/27/2021 [facility] dical Specialist DATE CREATED AUTHOR AUTHOR'S ORGANIZ ATION 09/06/2022 [facility] DATE CREATED AUTHOR AUTHOR'S ORGANIZ ATION 03/06/2024 [facility] [facility] ical [facility] DATE CREATED AUTHOR AUTHOR'S ORGANIZ ATION 08/17/2024 [facility] DATE CREATED AUTHOR AUTHOR'S ORGANIZ ATION 09/11/2024 [facility] dical Specialists EPIC DATE CREATED AUTHOR AUTHOR'S ORGANIZ ATION 09/15/2024 [facility] Care Teams (unrecognized sec tion and content) Records And Information Manager Relationship Specialty Start Date End Date Carolyn Byrnes MD [address] [place] [address] PCP - General Internal Medicine 11/22/22 Lawrence Eaton MD [address] [place] [address] Referring Physician Dermatology 11/17/22 Records And Information Manager Relationship Specialty Start Date End Date Carolyn Byrnes MD [address] [place] [address] PCP - General Internal Medicine 11/22/22 Lawrence Eaton MD [address] [place] [address] Referring Physician Dermatology 11/17/22 Records And Information Manager Relationship Specialty Start Date End Date Carolyn Byrnes MD [address] [place] [address] PCP - General Internal Medicine 11/22/22 Lawrence Eaton MD [address] [place] [address] Referring Physician Dermatology 11/17/22 Records And Information Manager Relationship Specialty Start Date End Date Carolyn Byrnes MD [address] [place] [address] PCP - General Internal Medicine 11/22/22 Lawrence Eaton MD [address] [place] [address] Referring Physician Dermatology 11/17/22 Records And Information Manager Relationship Specialty Start Date End Date Carolyn Byrnes MD [address] [place] [address] PCP - General Internal Medicine 11/22/22 Lawrence Eaton MD [address] [place] [address] Referring Physician Dermatology 11/17/22 Team Status: Inactive Member Role Status Dates Casimiro Suazo , Attending Provider Active S tart: August 15, 2024 End: August 15, 2024 Records And Information Manager Relationship Specialty Start Date End Date Carolyn Byrnes MD [address] [place] [address] PCP - General Internal Medicine 11/22/22 Lawrence Eaton MD [address] [place] [address] Referring Physician Dermatology 11/17/22 Reason for Visit (unrecogniz ed section and content) Reason Comments Skin Check Suspicious Skin Lesion Reason Comments Skin Check Goals (unrecognized section and content) Goals may be documented in a n alternate section FOR RECORDS PERTAINING TO PATIENTS WHO ARE [...] BE BASED ON THE PRIMARY CLINICAL RECORDS. [employer] a Division of [employer] [facility]. provides no warranty or guarantee of the accuracy or completeness of information in this document.
[2025-01-16 10:45] LABS: Alanine Aminotransferase 31 U/L (16-63); Albumin Globulin Ratio 0.9; Albumin Level 3.7 g/dL (3.4-5.0); Alkaline Phosphatase 66 U/L (46-116); Anion Gap 10.4; Aspartate Amino Transferase 22 U/L (15-37); Blood Urea Nitrogen 25.0 mg/dL (7.0-18.0); Calcium 9.1 mg/dL (8.5-10.1); Carbon Dioxide 29.4 mmol/L (21.0-32.0); Chloride 107 mmol/L (98-107); Cholesterol 207 mg/dL (<=200); Estimated GFR (African America >60 (>=60 mL/min/1.73m^2); Estimated GFR (Non-African Ame >60 (>=60 mL/min/1.73m^2); Globulin 4.3 g/dL; Glucose 98 mg/dL (74-106); HDL Cholesterol 60 mg/dL (40-60); Hematocrit 43.7 % (42.0-54.0); Hemoglobin 14.5 g/dL (14.0-18.0); Immature Granulocytes Abs Auto 0.01 10^3/uL (0.00-0.03); Immature Granulocytes Pct Auto 0.2 % (0.0-0.5); Lymphocytes Absolute Auto 1.6 10^3/uL (1.2-3.8); Mean Corpuscular HGB Conc 33.2 g/dL (29.9-35.2); Mean Corpuscular Hemoglobin 28.4 pg (25.9-34.0); Mean Corpuscular Volume 85.7 fL (80.0-94.0); Platelet Count 250 10^3/uL (150-450); Potassium 3.8 mmol/L (3.5-5.1); Red Blood Count 5.10 10^6/uL (4.70-6.10); Sodium 143 mmol/L (136-145); Thyroid Stimulating Hormone 0.992 uIU/mL (0.358-3.740); Total Protein 8.0 g/dL (6.4-8.2); Triglycerides 94 mg/dL (<=150); VLDL CHOLESTEROL 18.8 mg/dL; White Blood Count 4.7 10^3/uL (4.0-11.0)
[2025-01-16 11:11] LABS: Ferritin 27.0 ng/mL (26.0-388.0); Folate 35.30 ng/mL (8.60-58.90)
[2025-01-16 11:50] LABS: Iron 88.0 ug/dL (65.0-175.0); Percent Iron Saturation 24.2 %; Total Iron Binding Capacity 364.0 ug/dL (250.0-450.0)
[2025-01-17 08:09] LABS: PSA, Free 0.46 ng/mL
[2025-01-17 09:09] LABS: Vitamin B12 428 pg/mL (232-1245)
[2025-01-19 14:13] LABS: Albumin 3.7 g/dL (2.9-4.4); Alpha-1-Globulin 0.3 g/dL (0.0-0.4); Alpha-2-Globulin 0.7 g/dL (0.4-1.0); Gamma Globulin 1.3 g/dL (0.4-1.8)
[2025-01-19 17:08] LABS: Free Kappa Lt Chains,S 22.3 mg/L (3.3-19.4); Free Lambda Lt Chains,S 14.1 mg/L (5.7-26.3); Kappa/Lambda Ratio,S 1.58 (0.26-1.65)
== END 2025-01-16 09:24 | disposition home or self-care (01) ==
LOC: LAB 09:23
PROVIDERS: PCP Internal Medicine; Visit Provider Internal Medicine
DX: E78.00 Pure hypercholesterolemia, unspecified (principal); R97.20 Elevated prostate specific antigen [PSA]; E88.810 Metabolic syndrome; D51.3 Other dietary vitamin B12 deficiency anemia; D50.8 Other iron deficiency anemias
CPT/HCPCS: 36415; 80053; 80061; 82607; 82728; 82746; 83521; 83540; 83550; 84153; 84154; 84155; 84165; 84403; 84443; 85025